=== PATIENT | female | born 1945 | race Caucasian/White ===

== ENCOUNTER 2018-04-07 12:35 | Inpatient (IN) | payer MEDICARE, BC ==
--- NOTE | 2018-03-28 19:47 | HP ---
HISTORY AND PHYSICAL: DATE OF ADMISSION/SURGERY: 04/07/18 DATE OF OFFICE VISIT: 03/28/18 SURGEON: Krista Juráez MD * (DICTATED BY ADRIEL CHAMBERS) PROCEDURE: Left total knee arthroplasty. CHIEF COMPLAINT: Left knee pain. HISTORY OF PRESENT ILLNESS: Ms. Paz is a 72-year-old female with end-stage osteoarthritis of the left knee. She has failed conservative treatment and elected to proceed with a left total knee arthroplasty. PAST MEDICAL HISTORY: High cholesterol and fibromyalgia. PAST SURGICAL HISTORY: Tonsillectomy, lumbar diskectomy, hysterectomy, sigmoidoscopy, cholecystectomy, and right toe surgery. CURRENT MEDICATIONS: 1. Celebrex 200 mg daily. 2. Glucosamine/chondroitin. 3. Vitamin D. 4. Vitamin C. 5. Wellbutrin 150 mg daily. 6. Cinnamon. 7. Rosuvastatin calcium 5 mg q.h.s. ALLERGIES: To AUGMENTIN. FAMILY HISTORY: Cancer and RA. SOCIAL HISTORY: She is a 72-year-old female, lives alone. She does not smoke or use drugs. Uses occasional alcohol. REVIEW OF SYSTEMS: A complete 14-point review of systems was reviewed with the patient. It was all negative or noncontributory. She denies history of DVT, PE , hepatitis, HIV, or anesthesia problems. PHYSICAL EXAMINATION GENERAL: She is well developed, well nourished, in no acute distress. VITAL SIGNS: She stands 5 feet 3 inches tall, weighs 244 pounds. Her blood pressure is 146/88 and heart rate is 64. HEENT: Normocephalic, atraumatic. NECK: Supple. No palpable lymph nodes. PULMONARY: The lungs are clear to auscultation bilaterally. CARDIO: Regular rate and rhythm. Strong S1, S2. ABDOMEN: Soft, nontender, nondistended. MUSCULOSKELETAL: Left lower extremity: The skin is intact. There are no open wounds or abrasions. There is a moderate joint effusion. She has some tenderness over the medial joint line. Range of motion is 10 to 125 degrees with patellofemoral crepitus. She has a 2+ dorsalis pedis pulse, intact sensation and her lower extremity muscle group strengths are intact at 5/5. ASSESSMENT AND PLAN: Ms. Paz is a 72-year-old female with end-stage osteoarthritis of the left knee. She has failed conservative treatment and elected to proceed with a left total knee arthroplasty, which is scheduled for 04/07/[address]árez[address] Dr. Juárez discussed the risks and the benefits of the surgery at today's visit and all of her questions were answered. She will follow up with Dr. Juárez 2 weeks after the surgery. ADRIEL CHAMBERS [id number]/[facility] #: [id number] [facility]
[~2018-04-07 12:35] MED LIST: Buffered Lidocaine 0.9% SYRIN* 5 ML/SYR SYRINGE INTRADERM ONE; Bupivacaine-MPF SPINAL* 7.5 MG/ML - 2ML AMP ONE; Dexamethasone IV* 4 MG/ML 1 ML (4 MG) IV SLOW PU ONE; Famotidine IV* 10 MG/ML 2 ML (20 mg) IV ONE; Lidocaine 2% PF * 5 ML VIAL ONE; Midazolam* 1 MG/ML 2 ML VIAL (2 MG) ONE; Propofol* 10 MG/ML 20 ML BTL ONE; Tranexamic Acid 1,000 MG in NS 0.9% 50 ML* (outpatient use) IV SCH; fentaNYL* 50 MCG/ML 2 ML VIAL (100 MCG VIAL) ONE
--- OUTSIDE RECORDS SUMMARY | 2018-04-07 12:40 | XMS REPORT | Continuity of Care Document ---
:1945 External Reference #:[id number] Author Name Patricia Parham Care Team Providers Name Role Phone Vikram Rueda MD Primary Care Physician Unavailable Payers Type Date Identification Numbers Payment Provider Subscriber Effective: 2010 Policy Number: [id number] Medicare Gladis Del Castillo PayID: [id number] [address] [place] [address] Effective: 2014 Policy Number: [id number] [facility] Gladis Del Castillo PayID: [id number] [address] [place] [address] Onset: 1991 Policy Number: [id number] Special Funds Gladis Del Castillo Group Number: [id number] [place] [address] Advance Directives Description No Information Available Problems Date Description Provider Status Onset: 03/14/2018 Inflammatory polyarthropathy Krista Juárez M.D. Active Onset: 03/14/2018 Localized, primary osteoarthritis Krista Juárez M.D. Active Onset: 04/08/2016 Low back pain Jaden Duckworth M.D. Active Family History Date Family Member(s) Problem(s) Comments General Cancer General Rheumatoid Arthritis Father Arthritis Father Rheumatoid Arthritis Father Gout Social History Type Date Description Comments Sex Unknown Lives With Alone Occupation Retired ETOH Use Occasionally consumes alcohol Tobacco Use Start: Unknown End: Patient is a former quit 3 years ago Unknown smoker and was a light smoker Recreational Drug Use Denies Drug Use Smoking Status Reviewed: 03/28/18 Patient is a former quit 3 years ago smoker and was a light smoker Exercise Type/Frequency Exercises sporadically Allergies, Adverse Reactions, Alerts Date Description Reaction Status Severity Comments 12/12/2015 Augmentin c.diff Active 12/18/2014 NKDA Inactive Medications Medication Date Status Form Strength Qnty SIG Indications Ordering Provider Celebrex 00/00/ Active Capsules 200mg 1 by Unknown 0000 mouth every day Glucosamine /00/ Active Capsules 1500Com 1 by Unknown Chondroitin 1500 0000 mouth Complex every day Vitamin D /00/ Active Capsules 3000mg 1 by Unknown 0000 mouth every day Vitamin C / Active Chewtabs 500mg 1 by Unknown 0000 mouth every day Bupropion HCL ER / Active Tablets ER 150mg 1 by Unknown (SR) 0000 12HR mouth qd Cinnamon / Active Capsules 1000mg 1 by Unknown 0000 mouth every day Rosuvastatin / Active Tablets 5mg 1 by Unknown Calcium 0000 mouth every night at bedtime Aspercreme 02/01/ Hx Cream 4% 6units apply Adam Dougherty/Lidocaine 2017 - twice Jesica, 03/27/ daily to M.D. 2018 the painful joints as needed Oxycodone HCL 12/31/ Hx Tablets 5mg 15tabs 1 tablet Adam 2018 - by mouth Jesica, 03/21/ every 8 M.D. 2018 hours as needed for pain Metronidazole 10/21/ Hx Tablets 500mg 42tabs 1 tab by A04.7 Jamye Borden 2015 - mouth Marck, 11/11/ three M.D. 2016 times a day Oxycodone HCL 01/18/ Hx Tablets 5mg 60tabs 1-2 tabs M20.21 Hiro 2014 - by mouth Zenon, 02/04/ every 4-6 M.D. 2014 hours as needed pain Methotrexate / Hx Tablets 2.5mg on hold 5 Unknown 0000 - po once a 09/24/ week. 2016 Fish Oil / Hx Capsules 2000mg Unknown 0000 - 2016 Cinnamon / Hx Capsules 1000mg 1 by Unknown 0000 - mouth 11/17/ every day 2016 Folic Acid / Hx Tablets 1mg 1 by Unknown 0000 - mouth 03/13/ every day 2016 Gabapentin 00/ Hx Capsules 100mg take 1 Unknown 0000 - tab tid 03/21/ prn 2018 Immunizations Description No Information Available Vital Signs Date Vital Result Comment 03/28/2018 8:22am Height 63.5 inches 5'3.50" Weight 244.00 lb Heart Rate 64 /min BP Systolic 146 mmHg BP Diastolic 88 mmHg BMI (Body Mass Index) 42.5 kg/m2 03/21/2018 2:38pm Height 63.25 inches 5'3.25" Weight 243.38 lb Heart Rate 79 /min BP Systolic Sitting 174 mmHg BP Diastolic Sitting 80 mmHg Respiratory Rate 16 /min Pain Level 3 BMI (Body Mass Index) 42.8 kg/m2 03/14/2018 2:16pm Height 63.25 inches 5'3.25" Weight 244.00 lb Heart Rate 80 /min BP Systolic 138 mmHg BP Diastolic 80 mmHg BMI (Body Mass Index) 42.9 kg/m2 02/21/2018 11:33am Height 64 inches 5'4" Weight 246.00 lb Heart Rate 68 /min BP Systolic Sitting 126 mmHg BP Diastolic Sitting 80 mmHg Respiratory Rate 14 /min Pain Level 6 BMI (Body Mass Index) 42.2 kg/m2 02/01/2018 3:06pm Height 64 inches 5'4" Weight 247.38 lb Heart Rate 76 /min BP Systolic Sitting 140 mmHg BP Diastolic Sitting 88 mmHg Pain Level 3 O2 % BldC Oximetry 96 % BMI (Body Mass Index) 42.5 kg/m2 12/31/2017 10:02am Height 64 inches 5'4" Weight 249.00 lb Heart Rate 74 /min BP Systolic Sitting 140 mmHg BP Diastolic Sitting 90 mmHg Respiratory Rate 14 /min Pain Level 7 BMI (Body Mass Index) 42.7 kg/m2 07/16/2017 9:49am Height 64 inches 5'4" Weight 258.00 lb Heart Rate 73 /min BP Systolic Sitting 144 mmHg BP Diastolic Sitting 78 mmHg Respiratory Rate 14 /min Pain Level 2 BMI (Body Mass Index) 44.3 kg/m2 12/15/2016 7:52am Height 64 inches 5'4" Weight 258.00 lb Heart Rate 84 /min BP Systolic Sitting 126 mmHg BP Diastolic Sitting 74 mmHg Respiratory Rate 14 /min Pain Level 0 BMI (Body Mass Index) 44.3 kg/m2 09/10/2016 8:43am Height 64 inches 5'4" Weight 260.00 lb Heart Rate 80 /min BP Systolic Sitting 140 mmHg BP Diastolic Sitting 100 mmHg Respiratory Rate 14 /min Pain Level 3 BMI (Body Mass Index) 44.6 kg/m2 04/08/2016 3:35pm Height 64 inches 5'4" Weight 251.00 lb Heart Rate 60 /min BP Systolic Sitting 138 mmHg BP Diastolic Sitting 94 mmHg Pain Level 0 BMI (Body Mass Index) 43.1 kg/m2 03/13/2016 9:26am Height 64 inches 5'4" Weight 254.38 lb Heart Rate 76 /min BP Systolic Sitting 120 mmHg BP Diastolic Sitting 70 mmHg Respiratory Rate 14 /min Body Temperature 97.5 F Pain Level 0 BMI (Body Mass Index) 43.7 kg/m2 12/12/2015 10:47am Height 64 inches 5'4" Weight 259.00 lb Heart Rate 72 /min BP Systolic Sitting 150 mmHg BP Diastolic Sitting 88 mmHg Respiratory Rate 14 /min Body Temperature 97.8 F Pain Level 2 BMI (Body Mass Index) 44.5 kg/m2 11/19/2015 8:59am Height 64 inches 5'4" Weight 259.00 lb Heart Rate 80 /min BP Systolic Sitting 134 mmHg BP Diastolic Sitting 88 mmHg Respiratory Rate 14 /min Body Temperature 97.8 F BMI (Body Mass Index) 44.5 kg/m2 10/29/2015 9:07am Height 64 inches 5'4" Weight 259.00 lb Heart Rate 60 /min BP Systolic Sitting 138 mmHg BP Diastolic Sitting 88 mmHg Respiratory Rate 14 /min Body Temperature 97.5 F BMI (Body Mass Index) 44.5 kg/m2 10/22/2015 8:32am Weight 257.00 lb Heart Rate 80 /min BP Systolic Sitting 176 mmHg BP Diastolic Sitting 82 mmHg O2 % BldC Oximetry 97 % 03/19/2015 4:07pm Height 64 inches 5'4" Weight 258.00 lb Pain Level 0 BMI (Body Mass Index) 44.3 kg/m2 02/28/2015 3:15pm Height 64 inches 5'4" Weight 258.00 lb Pain Level 0 BMI (Body Mass Index) 44.3 kg/m2 02/07/2015 2:15pm Height 64 inches 5'4" Weight 258.00 lb Body Temperature 97.5 F Pain Level 0 BMI (Body Mass Index) 44.3 kg/m2 01/18/2015 8:31am Height 64 inches 5'4" Weight 258.00 lb Heart Rate 76 /min BP Systolic 132 mmHg BP Diastolic 88 mmHg Body Temperature 97.1 F Pain Level 0 BMI (Body Mass Index) 44.3 kg/m2 12/18/2014 2:05pm Height 64 inches 5'4" Weight 258.00 lb Pain Level 3 BMI (Body Mass Index) 44.3 kg/m2 Results Test Date Facility Test Result H/L Range Note Urine Culture And 03/28/2018 [facility] Urine Culture SEE RESULT [address] [place] [address] [phone] Comp Metabolic 03/28/2018 [facility] Sodium 140 mmol/L N 135- [address] [place] [address] [phone] Potassium 4.5 mmol/L N 3.5-5.0 Chloride 104 mmol/L N 101-111 Co2 Carbon Dioxide 30 mmol/L N 22-32 Anion Gap 6 mmol/L N 2-11 Glucose 96 mg/dL N 70-100 Blood Urea Nitrogen 12 mg/dL N 6-24 Creatinine 0.82 mg/dL N 0.51-0.95 BUN/Creatinine Ratio 14.6 N 8-20 Calcium 9.9 mg/dL N 8.6-10.3 Total Protein 7.0 g/dL N 6.4-8.9 Albumin 4.5 g/dL N 3.2-5.2 Globulin 2.5 g/dL N 2-4 Albumin/Globulin Ratio 1.8 N 1-3 Total Bilirubin 1.20 mg/dL High 0.2-1.0 Alkaline Phosphatase 46 U/L N 34-104 Alt 31 U/L N 7-52 Ast 29 U/L N 13-39 Egfr Non- 68.5 >60 Egfr 82.9 >60 2 Laboratory test 03/28/2018 [facility] Partial 39.0 High 26.0- 36.[address] [place] [address] PTT [phone] CBC Auto Diff 03/28/2018 [facility] White Blood 7.7 10^3/uL N 3.5-10.[address] [place] [address] [phone] Red Blood Count 4.74 10^6/uL N 4.00-5.40 Hemoglobin 15.0 g/dL N 12.0-16.0 Hematocrit 44 % N 35-47 Mean Corpuscular Volume 93 fL N 80-97 Mean Corpuscular Hemoglobin 32 pg High 27-31 Mean Corpuscular HGB Conc 34 g/dL N 31-36 Red Cell Distribution Width 13 % N 10.5-15 Platelet Count 237 10^3/uL N 150-450 Mean Platelet Volume 8.5 fL N 7.4-10.4 Abs Neutrophils 4.9 10^3/uL N 1.5-7.7 Abs Lymphocytes 2.1 10^3/uL N 1.0-4.8 Abs Monocytes 0.5 10^3/uL N 0-0.8 Abs Eosinophils 0.2 10^3/uL N 0-0.6 Abs Basophils 0.1 10^3/uL N 0-0.2 Abs Nucleated RBC 0 10^3/uL Granulocyte % 63.4 % N 38-83 Lymphocyte % 26.8 % N 25-47 Monocyte % 6.9 % N 0-7 Eosinophil % 2.0 % N 0-6 Basophil % 0.9 % N 0-2 Nucleated Red Blood Cells % 0.1 Type & Screen 03/28/2018 [facility] Patient Blood Type O Positive [address] [place] [phone] Antibody Screen NEGATIVE Inr/Protime 03/28/2018 [facility] Inr 0.90 N 0.77-1.[address] [place] [address] [phone] Urinalysis Profile 03/28/2018 [facility] Urine Color Yellow [address] [place] [address] [phone] Urine Appearance Cloudy Urine Specific Parsons 1.010 N 1.010-1.030 Urine pH 5.0 N 5-9 Urine Urobilinogen Negative Negative Urine Ketones Negative Negative Urine Protein Negative Negative Urine Leukocytes 3+ Abnormal Negative Urine Blood Negative Negative * * Abnormal Negative 3 Urine Nitrite Negative Negative Urine Bilirubin Negative Negative Urine Glucose Negative Negative Urine White Blood Cell 2+(11-20/hpf) Abnormal Absent Urine Red Blood Cell Absent Absent Urine Bacteria Absent Absent Urine Squamous Epithelial Cell Present Abnormal Absent Connective Tissue 02/21/2018 [facility] Anti-Nuclear Antibody 0.4 U [address] [place] [phone] Cyclic Citrullinated Peptide <15.6 U 5 Interpretation See Comment 6 Laboratory test 02/21/2018 [facility] Rheumatoid Factor < 10 IU/ mL N <15 [address] [place] [address] [phone] Erythrocyte Sed Rate 8 mm/Hr N 0-40 8 C Reactive Protein < 1.00 mg/L N <8.01 9 Laboratory test 04/16/2017 [facility] C Reactive < 1.00 N < 5.00 [address] Protein mg/[place] [address] [phone] Erythrocyte Sed Rate 6 mm/Hr N 0-40 11 Comp Metabolic Panel 04/16/2017 [facility] Sodium 138 mmol/L N 133-[address] [place] [address] [phone] Potassium 4.2 mmol/L N 3.5-5.0 Chloride 104 mmol/L N 101-111 Co2 Carbon Dioxide 28 mmol/L N 22-32 Anion Gap 6 mmol/L N 2-11 Glucose 103 mg/dL High 70-100 Blood Urea Nitrogen 13 mg/dL N 6-24 Creatinine 0.84 mg/dL N 0.51-0.95 BUN/Creatinine Ratio 15.5 N 8-20 Calcium 9.5 mg/dL N 8.6-10.3 Total Protein 6.5 g/dL N 6.4-8.9 Albumin 4.3 g/dL N 3.2-5.2 Globulin 2.2 g/dL N 2-4 Albumin/Globulin Ratio 2.0 N 1-3 Total Bilirubin 1.20 mg/dL High 0.2-1.0 Alkaline Phosphatase 45 U/L N 34-104 Alt 40 U/L N 7-52 Ast 34 U/L N 13-39 Egfr Non- 66.8 >60 Egfr 86.0 >60 12 CBC Auto Diff 04/16/2017 [facility] White Blood 5.9 10^3/uL N 3.5-10.[address] [place] [address] [phone] Red Blood Count 4.52 10^6/uL N 4.0-5.4 Hemoglobin 14.3 g/dL N 12.0-16.0 Hematocrit 42 % N 35-47 Mean Corpuscular Volume 92 fL N 80-97 Mean Corpuscular Hemoglobin 32 pg High 27-31 Mean Corpuscular HGB Conc 35 g/dL N 31-36 Red Cell Distribution Width 13 % N 10.5-15 Platelet Count 214 10^3/uL N 150-450 Mean Platelet Volume 9 um3 N 7.4-10.4 Abs Neutrophils 3.5 10^3/uL N 1.5-7.7 Abs Lymphocytes 1.7 10^3/uL N 1.0-4.8 Abs Monocytes 0.5 10^3/uL N 0-0.8 Abs Eosinophils 0.2 10^3/uL N 0-0.6 Abs Basophils 0 10^3/uL N 0-0.2 Abs Nucleated RBC 0.01 10^3/uL Granulocyte % 59.2 % N 38-83 Lymphocyte % 29.4 % N 25-47 Monocyte % 8.0 % N 1-9 Eosinophil % 2.7 % N 0-6 Basophil % 0.7 % N 0-2 Nucleated Red Blood Cells % 0.1 Lipid Profile 04/16/2017 [facility] Triglycerides 97 mg/dL 13 (Trig/Chol/HDL) [address] [place] [address] [phone] Cholesterol 149 mg/dL 14 HDL Cholesterol 61.0 mg/dL 15 LDL Cholesterol 69 mg/dL 16 Laboratory test 04/16/2017 [facility] Erythrocyte Sed 6 mm/Hr N 0-40 [address] [place] [address] [phone] C Reactive Protein < 1.00 mg/L N < 5.00 18 CBC Auto Diff 04/16/2017 [facility] White Blood 5.9 10^3/uL N 3.5-10.[address] [place] [address] [phone] Red Blood Count 4.52 10^6/uL N 4.0-5.4 Hemoglobin 14.3 g/dL N 12.0-16.0 Hematocrit 42 % N 35-47 Mean Corpuscular Volume 92 fL N 80-97 Mean Corpuscular Hemoglobin 32 pg High 27-31 Mean Corpuscular HGB Conc 35 g/dL N 31-36 Red Cell Distribution Width 13 % N 10.5-15 Platelet Count 214 10^3/uL N 150-450 Mean Platelet Volume 9 um3 N 7.4-10.4 Abs Neutrophils 3.5 10^3/uL N 1.5-7.7 Abs Lymphocytes 1.7 10^3/uL N 1.0-4.8 Abs Monocytes 0.5 10^3/uL N 0-0.8 Abs Eosinophils 0.2 10^3/uL N 0-0.6 Abs Basophils 0 10^3/uL N 0-0.2 Abs Nucleated RBC 0.01 10^3/uL Granulocyte % 59.2 % N 38-83 Lymphocyte % 29.4 % N 25-47 Monocyte % 8.0 % N 1-9 Eosinophil % 2.7 % N 0-6 Basophil % 0.7 % N 0-2 Nucleated Red Blood Cells % 0.1 Comp Metabolic Panel 04/16/2017 [facility] Sodium 138 mmol/L N 133-[address] [place] [address] [phone] Potassium 4.2 mmol/L N 3.5-5.0 Chloride 104 mmol/L N 101-111 Co2 Carbon Dioxide 28 mmol/L N 22-32 Anion Gap 6 mmol/L N 2-11 Glucose 103 mg/dL High 70-100 Blood Urea Nitrogen 13 mg/dL N 6-24 Creatinine 0.84 mg/dL N 0.51-0.95 BUN/Creatinine Ratio 15.5 N 8-20 Calcium 9.5 mg/dL N 8.6-10.3 Total Protein 6.5 g/dL N 6.4-8.9 Albumin 4.3 g/dL N 3.2-5.2 Globulin 2.2 g/dL N 2-4 Albumin/Globulin Ratio 2.0 N 1-3 Total Bilirubin 1.20 mg/dL High 0.2-1.0 Alkaline Phosphatase 45 U/L N 34-104 Alt 40 U/L N 7-52 Ast 34 U/L N 13-39 Egfr Non- 66.8 >60 Egfr 86.0 >60 19 Lipid Profile 04/16/2017 [facility] Triglycerides 97 mg/dL 20 (Trig/Chol/HDL) [address] [place] [address] [phone] Cholesterol 149 mg/dL 21 HDL Cholesterol 61.0 mg/dL 22 LDL Cholesterol 69 mg/dL 23 Laboratory test 09/10/2016 [facility] Erythrocyte Sed 6 mm/Hr N 0-[address] [place] [address] [phone] C Reactive Protein < 1.00 mg/L N < 5.00 24 CBC Auto Diff 09/10/2016 [facility] White Blood 6.1 10^3/uL N 3.5-10.[address] [place] [address] [phone] Red Blood Count 4.66 10^6/uL N 4.0-5.4 Hemoglobin 14.4 g/dL N 12.0-16.0 Hematocrit 43 % N 35-47 Mean Corpuscular Volume 92 fL N 80-97 Mean Corpuscular Hemoglobin 31 pg N 27-31 Mean Corpuscular HGB Conc 34 g/dL N 31-36 Red Cell Distribution Width 13 % N 10.5-15 Platelet Count 192 10^3/uL N 150-450 Mean Platelet Volume 9 um3 N 7.4-10.4 Abs Neutrophils 3.8 10^3/uL N 1.5-7.7 Abs Lymphocytes 1.7 10^3/uL N 1.0-4.8 Abs Monocytes 0.5 10^3/uL N 0-0.8 Abs Eosinophils 0.1 10^3/uL N 0-0.6 Abs Basophils 0 10^3/uL N 0-0.2 Abs Nucleated RBC 0 10^3/uL N Granulocyte % 61.2 % N 38-83 Lymphocyte % 27.9 % N 25-47 Monocyte % 7.9 % N 1-9 Eosinophil % 2.4 % N 0-6 Basophil % 0.6 % N 0-2 Nucleated Red Blood Cells % 0.1 N Comp Metabolic Panel 09/10/2016 [facility] Sodium 141 mmol/L N 133-[address] [place] [address] [phone] Potassium 4.1 mmol/L N 3.5-5.0 Chloride 105 mmol/L N 101-111 Co2 Carbon Dioxide 30 mmol/L N 22-32 Anion Gap 6 mmol/L N 2-11 Glucose 99 mg/dL N 70-100 Blood Urea Nitrogen 12 mg/dL N 6-24 Creatinine 0.79 mg/dL N 0.51-0.95 BUN/Creatinine Ratio 15.2 N 8-20 Calcium 9.4 mg/dL N 8.6-10.3 Total Protein 6.6 g/dL N 6.4-8.9 Albumin 4.2 g/dL N 3.2-5.2 Globulin 2.4 g/dL N 2-4 Albumin/Globulin Ratio 1.8 N 1-3 Total Bilirubin 1.30 mg/dL High 0.2-1.0 Alkaline Phosphatase 41 U/L N 34-104 Alt 34 U/L N 7-52 Ast 28 U/L N 13-39 Egfr Non- 71.9 N >60 Egfr 92.5 N >60 25 Laboratory 09/10/2016 [facility] TSH (Thyroid Stim 1.81 N 0.34 -5.60 test finding [address] Horm) mcIU/[place] [address] [phone] Lipid Profile 09/10/2016 [facility] Triglycerides 108 mg/dL N 26 (Trig/Chol/HDL [address] ) [place] [address] [phone] Cholesterol 153 mg/dL N 27 HDL Cholesterol 60.9 mg/dL N 28 LDL Cholesterol 71 mg/dL N 29 Laboratory test 12/13/2015 [facility] TSH (Thyroid 1.75 mcIU/mL N 0.34-5.60 [address] Stim Horm) [place] [address] [phone] Vitamin D 1,25 12/13/2015 [facility] Vitamin D 41.9 ng/mL N 30 -50 31 And Vitamin D,[address] Total 25(Oh) [place] [address] [phone] Vitamin D, 1,25 Dihydroxy 55 pg/mL N 18-78 32 Laboratory test 12/13/2015 [facility] Cyclic Citrullinated TNP N () [address] [place] [address] [phone] Rheumatoid Factor <15 IU/mL N <15 34 Uric Acid 6.9 mg/dL High 2.3-6.6 35 Lyme Disease Serology Negative N Negative 36 Connective Tissue 12/13/2015 [facility] Anti-Nuclear 0.5 U N [address] [place] [address] [phone] Cyclic Citrullinated Peptide <15.6 U N 38 Interpretation See Comment N 39 Laboratory test 12/13/2015 [facility] Creatine 106 U/L N 10- 223 [address] Kinase(CK) [place] [address] [phone] C Reactive Protein < 1.00 mg/L N < 5.00 41 Liver Function 10/30/2015 [facility] Total Protein 6.5 g/dL N 6.4-8.[address] [place] [address] [phone] Albumin 4.2 g/dL N 3.2-5.2 Globulin 2.3 g/dL N 2-4 Albumin/Globulin Ratio 1.8 N 1-3 Total Bilirubin 0.70 mg/dL N 0.2-1.0 Direct Bilirubin 0.10 mg/dL N 0.03-0.18 Indirect Bilirubin 0.6 mg/dL N 0.3-1.0 Alkaline Phosphatase 48 U/L N 34-104 Alt 52 U/L N 7-52 Ast 35 U/L N 13-39 Laboratory 10/30/2015 [facility] Hepatitis C Nonreactive N Nonreactive test finding [address] [place] [address] [phone] Laboratory 10/23/2015 [facility] C Difficile SEE RESULT 42 test finding [address] [place] [address] [phone] Laboratory 01/28/2015 [facility] Surgical SEE RESULT 43 test finding [address] [place] [address] [phone] 1 SEE RESULT BELOW Name: GLADIS DEL CASTILLO : [address]: Krista Juárez MD Acct: [id number] Unit: [id number] AGE: 72 Location: [facility] Re03/28/18 SEX: F Status: REG REF SPEC: [id number] BIANCA: 03/28/[address]: Krista Juárez MD REQ: [id number] RECD: 03/28/18 STATUS: COMP _ SOURCE: URINE SPDESC: ORDERED: Urine Culture QUERIES: Urine Source: Clean Catch Procedure Result Reported Site Urine Culture Final 03/29/18- 1214 ML No Growth (<1,000 CFU/mL) * ML - Main Lab . END OF REPORT DEPARTMENT OF PATHOLOGY, [address] [place] [address] Carlos Dodge M.D. Director [facility] # [id number] 2 Because ethnic data is not always readily available, this report includes an eGFR for both -Americans and non- Americans. The National Kidney Disease Education Program (NKDEP) does not endorse the use of the MDRD equation for patients that are not between the ages of 18 and 70, are , have extremes of body size, muscle mass, or nutritional status, or are non- or non-. According to the National Kidney Foundation, irrespective of diagnosis, the stage of the disease is based on the level of kidney function: Stage Description GFR(mL/min/1.73 m(2)) 1 Kidney damage with normal or decreased GFR 90 2 Kidney damage with mild decrease in GFR 60-89 3 Moderate decrease in GFR 30-59 4 Severe decrease in GFR 15-29 5 Kidney failure <15 (or dialysis) 3 *Ascorbic acid is present which may interfere with detection of blood. 4 REFERENCE VALUE <=1.0 (Negative) 5 REFERENCE VALUE <20.0 (Negative) 6 Tests for antibodies to dsDNA and NIRAV antigens are not performed automatically unless the KASSY result is > or= 3.0 U. Studies performed at [facility] indicate that positive KASSY results <3.0 U are rarely accompanied by positive second order tests. Test Performed by: [address] [address] 7 Please check today 8 Please check today 9 Please check today 10 Acute inflammation: >10.00 11 Please check fasting labs in March 21 Because ethnic data is not always readily available, this report includes an eGFR for both -Americans and non- Americans. The National Kidney Disease Education Program (NKDEP) does not endorse the use of the MDRD equation for patients that are not between the ages of 18 and 70, are , have extremes of body size, muscle mass, or nutritional status, or are non- or non-. According to the National Kidney Foundation, irrespective of diagnosis, the stage of the disease is based on the level of kidney function: Stage Description GFR(mL/min/1.73 m(2)) 1 Kidney damage with normal or decreased GFR 90 2 Kidney damage with mild decrease in GFR 60-89 3 Moderate decrease in GFR 30-59 4 Severe decrease in GFR 15-29 5 Kidney failure <15 (or dialysis) 13 Desirable: <150 Borderline High: 150-199 High: 200-499 Very High: >500 14 Desirable: <200 Borderline High: 200-239 High: >239 15 Low: <40 Desirable: 40-60 High: >60 16 Desirable: <100 Near Optimal: 100-129 Borderline High: 130-159 High: 160-189 Very High: >189 17 Please check fasting labs in March 27 Acute inflammation: >10.00 19 Because ethnic data is not always readily available, this report includes an eGFR for both -Americans and non- Americans. The National Kidney Disease Education Program (NKDEP) does not endorse the use of the MDRD equation for patients that are not between the ages of 18 and 70, are , have extremes of body size, muscle mass, or nutritional status, or are non- or non-. According to the National Kidney Foundation, irrespective of diagnosis, the stage of the disease is based on the level of kidney function: Stage Description GFR(mL/min/1.73 m(2)) 1 Kidney damage with normal or decreased GFR 90 2 Kidney damage with mild decrease in GFR 60-89 3 Moderate decrease in GFR 30-59 4 Severe decrease in GFR 15-29 5 Kidney failure <15 (or dialysis) 20 Desirable: <150 Borderline High: 150-199 High: 200-499 Very High: >500 21 Desirable: <200 Borderline High: 200-239 High: >239 22 Low: <40 Desirable: 40-60 High: >60 23 Desirable: <100 Near Optimal: 100-129 Borderline High: 130-159 High: 160-189 Very High: >189 24 Acute inflammation: >10.00 25 Because ethnic data is not always readily available, this report includes an eGFR for both -Americans and non- Americans. The National Kidney Disease Education Program (NKDEP) does not endorse the use of the MDRD equation for patients that are not between the ages of 18 and 70, are , have extremes of body size, muscle mass, or nutritional status, or are non- or non-. According to the National Kidney Foundation, irrespective of diagnosis, the stage of the disease is based on the level of kidney function: Stage Description GFR(mL/min/1.73 m(2)) 1 Kidney damage with normal or decreased GFR 90 2 Kidney damage with mild decrease in GFR 60-89 3 Moderate decrease in GFR 30-59 4 Severe decrease in GFR 15-29 5 Kidney failure <15 (or dialysis) 26 Desirable <150 Borderline high 150-199 High 200-499 Very High >500 27 Desirable <200 Borderline high 200-239 High >239 28 Low <40 Desirable: 40-60 High: >60 29 Desirable: <100 mg/dL Near Optimal: 100-129 mg/dL Borderline High: 130-159 mg/dL High: 160-189 mg/dL Very High: >189 mg/dL 30 Please schedule labs this week 31 Please schedule labs this week 32 Test Performed by: [place] [address] Slate Roofer: Octavio Jacome II, M.D., Ph.D. 33 Cancelled due to duplicate test on this order Test Performed by: [place] [address] Slate Roofer: Octavio Jacome II, M.D., Ph.D. 34 Test Performed by: [place] [address] Slate Roofer: Octavio Jacome II, M.D., Ph.D. 35 Please schedule labs this week 36 Serologic response to B. burgdorferi infection is not detected, but cannot rule out early infection during which low or undetectable antibody levels to B. burgdorferi may be present. If clinically indicated, a new serum specimen should be submitted in 7-14 days. Test Performed by: [place] [address] Slate Roofer: Octavio Jacome II, M.D., Ph.D. 37 REFERENCE VALUE <=1.0 (Negative) 38 REFERENCE VALUE <20.0 (Negative) 39 Tests for antibodies to dsDNA and NIRAV antigens are not performed automatically unless the KASSY result is > or= 3.0 U. Studies performed at [facility] indicate that positive KASSY results <3.0 U are rarely accompanied by positive second order tests. Test Performed by: [facility] - [address] [address] Slate Roofer: Octavio Jacome II, M.D., Ph.D. 40 Please schedule labs this week 41 Acute inflammation: >10.00 42 SEE RESULT BELOW Name: GLADIS DEL CASTILLO : [address]: Jamey Engel MD Acct: [id number] Unit: [id number] AGE: 69 Location: [facility] Re10/23/15 SEX: F Status: REG REF SPEC: [id number] BIANCA: 10/23/[address]: Jamey Engel MD REQ: [id number] RECD: 10/23/15 STATUS: COMP _ SOURCE: STOOL SPDESC: ORDERED: C. diff PCR Procedure Result Reported Site Stool Specimen Description Final 10/23/15922 ML Stool Color Brown Stool Form Nonformed Stool Consistency Soft Mucoid C. difficile PCR Final 10/23/15918 ML Organism 1 027 Presumptive NEGATIVE Organism 2 Toxigenic C.diff POSITIVE * ML - MAIN LAB ([facility]) . END OF REPORT * ML=Testing performed at Main Lab DEPARTMENT OF PATHOLOGY, [address] [place] [address] Carlos Dodge M.D. Director [facility] # [id number] 43 SEE RESULT BELOW Name: GLADIS DEL CASTILLO : [address]: Hiro Yarbrough MD Acct: [id number] Unit: [id number] AGE: 69 Location: [place] Re01/28/15 SEX: F Status: REG SD SPEC: [id number] BIANCA: 01/28/15- [facility] DR: Hiro Yarbrough MD REQ: [id number] RECD: 01/28/151404 STATUS: SOUT _ ORDERED: Decal, LEVEL III FINAL DIAGNOSIS Bone, right foot, excision: -- Benign bone, cartilage, and fibroconnective tissue with reactive changes. PRE-OPERATIVE DIAGNOSIS Osteoarthrosis right ankle and foot. GROSS DESCRIPTION The specimen is received in formalin labeled, Right Foot Bone Spurs, and consists of a 2.8 x 2.3 x 1.0 cm aggregate of horton-pink irregular bone fragments. Features Reporter sections, one cassette following decalcification. MICROSCOPIC DESCRIPTION . Signed (signature on file) Eliane Copeland MD 1202 END OF REPORT * ML=Testing performed at Main Lab DEPARTMENT OF PATHOLOGY, [address] [place] [address] Carlos Dodge M.D. 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 knee M06.4 Inflammatory polyarthropathy M25.562 Pain in left knee M25.462 Effusion, left knee M25.561 Pain in right knee M25.461 Effusion, right knee M17.11 Unilateral primary osteoarthritis, right knee Office Visit 02/21/2018 Rheumatology Adam Bermudez Unilateral primary 11:20a Services Of Jeffy Mooney M.D. osteoarthritis, left knee M54.5 Low back pain Z79.1 group home (current) use of non-steroidal non-inflam (Nsaid) R20.8 Other disturbances of skin sensation M06.4 Inflammatory polyarthropathy Office Visit 02/01/2018 Rheumatology Adam Bermudez Unilateral primary 2:40p Services Of Jeffy Mooney M.D. 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 pain Z79.1 group home (current) use of non-steroidal non-inflam (Nsaid) R20.8 Other disturbances of skin sensation Office Visit 07/16/2017 10:00a Rheumatology Services Lien Williamson4.5 Low back Of Acid Dumper M.D. 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 non-inflam (Nsaid) E78.4 Other hyperlipidemia M19.041 Primary osteoarthritis, right hand M19.042 Primary osteoarthritis, left hand Office Visit 04/08/2016 3:45p Neurosurgery Jaden Duckworth M54.5 Low back pain Services Of Jeffy Barnhart Office Visit 03/13/2016 9:40a Rheumatology Adam Mooney, R74.0 Nonspec elev of Services Of Jeffy Barnhart levels of transamns & lactic acid dehydrgnse 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 arthritis without rheumatoid factor, [facility] site M79.641 Pain in right hand M79.642 Pain in left hand R94.5 Abnormal results of liver function studies R20.8 Other disturbances of skin sensation Office Visit 11/19/2015 [facility] Jamey Borden A04.7 Enterocolitis due 9:10a For Patel Engel M.D. to Clostridium Diseases difficile M06.9 Rheumatoid arthritis, unspecified Office Visit 10/29/2015 [facility] Kaela Borden A04.7 Enterocolitis due 9:10a For Patel Engel M.D. to Clostridium Diseases difficile R74.0 Nonspec elev of levels of transamns & lactic acid dehydrgnse E66.9 Obesity, unspecified Office Visit 10/22/2015 [facility] Jamey Borden A04.7 Enterocolitis due 8:30a For Patel Engel M.D. to Clostridium Diseases difficile R10.84 Generalized abdominal pain Office Visit 12/18/2014 Orthopedic Hiro 715.17 Osteoarthrosis 1:40p Services Of Bronwyn Yarbrough Localized Prim Ankle C.M.A. & Foot Plan of Treatment Future Appointment(s):04/22/2018 9:15 am - Krista Juárez M.D. at [facility]04/07/2018 3:30 pm - СВЕТЛАНА Kenney at [facility]04/07/2018 3:30 pm - ADRIEL Rodrigues at [facility]04/07/2018 3:30 pm - Krista Juárez M.D. at [facility]05/05/2018 11:20 am - Adam Mooney M.D. at [facility]ology [facility]03/28/2018 - Krista Juárez M.D.M17.12 Unilateral primary osteoarthritis, left kneeFollow up:Follow up: 2 weeks after kbrkrxjH62.562 Pain in left kneeNew Xrays:Knee 3 Views LT, Ordered: 03/28/18M25.462 Effusion, left knee
--- OUTSIDE RECORDS SUMMARY | 2018-04-07 12:40 | XMS REPORT | Continuity of Care Document ---
:1945 External Reference #:[id number] Author Name Jarad Marks Care Team Providers Name Role Phone Vikram Rueda MD Primary Care Physician Unavailable Payers Type Date Identification Numbers Payment Provider Subscriber Effective: 2010 Policy Number: [id number] Medicare Gladis Del Castillo PayID: [id number] [address] [place] [address] Effective: 2014 Policy Number: [id number] [facility] Gladis Del Castillo PayID: [id number] [address] [place] [address] Onset: 1991 Policy Number: [id number] Special Funds Gladis Del Castillo Group Number: [id number] [place] [address] Advance Directives Description No Information Available Problems [...] by Unknown 0000 mouth every day Glucosamine 00/ Active Capsules 1500Com 1 by Unknown Chondroitin [...] Tablets 500mg 42tabs 1 tab by A04.7 Jamey Borden 2015 - mouth Marck, 11/11/ three [...] Date Facility Test Result H/L Range Note Connective Tissue 02/21/2018 [facility] Anti-Nuclear 0.4 U 1 Panel 101 DATES [facility] [place] [place] [address] [phone] Cyclic Citrullinated Peptide <15.6 U 2 Interpretation See Comment 3 Laboratory test 02/21/2018 [facility] Rheumatoid Factor < 10 IU/ mL N <15 [address] [place] [address] [phone] Erythrocyte Sed Rate 8 mm/Hr N 0-40 5 C Reactive Protein < 1.00 mg/L N <8.01 6 Laboratory test 04/16/2017 [facility] C Reactive < 1.00 N < 5.00 7 finding 101 [facility] Protein mg/[place] [address] [phone] Erythrocyte Sed Rate 6 mm/Hr N 0-40 8 Comp Metabolic Panel 04/16/2017 [facility] Sodium 138 mmol/L N 133-[address] [place] [address] [phone] Potassium 4.2 mmol/L N 3.5-5.0 Chloride 104 [...] Egfr Non- 66.8 >60 Egfr 86.0 >60 9 CBC Auto Diff 04/16/2017 [facility] White Blood 5.9 10^3/uL N 3.5-10.[address] [place] [address] [phone] Red Blood Count 4.52 10^6/uL N 4.0-5.4 [...] Blood Cells % 0.1 Lipid Profile 04/16/2017 [facility] Triglycerides 97 mg/dL 10 (Trig/Chol/HDL) [address] [place] [address] [phone] Cholesterol 149 mg/dL 11 HDL Cholesterol 61.0 mg/dL 12 LDL Cholesterol 69 mg/dL 13 Laboratory test 04/16/2017 [facility] Erythrocyte Sed 6 mm/Hr N 0-40 [address] [place] [address] [phone] C Reactive Protein < 1.00 mg/L N < 5.00 15 CBC Auto Diff 04/16/2017 [facility] White Blood 5.9 10^3/uL N 3.5-10.[address] [place] [address] [phone] Red Blood Count 4.52 10^6/uL N 4.0-5.4 [...] Cells % 0.1 Comp Metabolic Panel 04/16/2017 [facility] Sodium 138 mmol/L N 133-[address] [place] [address] [phone] Potassium 4.2 mmol/L N 3.5-5.0 Chloride 104 [...] Egfr Non- 66.8 >60 Egfr 86.0 >60 16 Lipid Profile 04/16/2017 [facility] Triglycerides 97 mg/dL 17 (Trig/Chol/HDL) [address] [place] [address] [phone] Cholesterol 149 mg/dL 18 HDL Cholesterol 61.0 mg/dL 19 LDL Cholesterol 69 mg/dL 20 Laboratory test 09/10/2016 [facility] Erythrocyte Sed 6 mm/Hr N 0-[address] [place] [address] [phone] C Reactive Protein < 1.00 mg/L N < 5.00 21 CBC Auto Diff 09/10/2016 [facility] White Blood 6.1 10^3/uL N 3.5-10.[address] [place] [address] [phone] Red Blood Count 4.66 10^6/uL N 4.0-5.4 [...] % 0.1 N Comp Metabolic Panel 09/10/2016 [facility] Sodium 141 mmol/L N 133-[address] [place] [address] [phone] Potassium 4.1 mmol/L N 3.5-5.0 Chloride 105 [...] 71.9 N >60 Egfr 92.5 N >60 22 Laboratory 09/10/2016 [facility] TSH (Thyroid Stim 1.81 N 0.34 -5.60 test finding [address] Horm) mcIU/[place] [address] [phone] Lipid Profile 09/10/2016 [facility] Triglycerides 108 mg/dL N 23 (Trig/Chol/HDL [address] ) [place] [address] [phone] Cholesterol 153 mg/dL N 24 HDL Cholesterol 60.9 mg/dL N 25 LDL Cholesterol 71 mg/dL N 26 Laboratory test 12/13/2015 [facility] TSH (Thyroid 1.75 mcIU/mL N 0.34-5.60 [address] Stim Horm) [place] [address] [phone] Vitamin D 1,25 12/13/2015 [facility] Vitamin D 41.9 ng/mL N 30 -50 28 And Vitamin D,[address] Total 25(Oh) [place] [address] [phone] Vitamin D, 1,25 Dihydroxy 55 pg/mL N 18-78 29 Laboratory test 12/13/2015 [facility] Cyclic Citrullinated TNP N () [address] [place] [place] [address] [phone] Rheumatoid Factor <15 IU/mL N <15 31 Uric Acid 6.9 mg/dL High 2.3-6.6 32 Lyme Disease Serology Negative N Negative 33 Connective Tissue 12/13/2015 [facility] Anti-Nuclear 0.5 U N [address] [place] [address] [phone] Cyclic Citrullinated Peptide <15.6 U N 35 Interpretation See Comment N 36 Laboratory test 12/13/2015 [facility] Creatine 106 U/L N 10- 223 [address] Kinase(CK) [place] [address] [phone] C Reactive Protein < 1.00 mg/L N < 5.00 38 Liver Function 10/30/2015 [facility] Total Protein 6.5 g/dL N 6.4-8.[address] [place] [address] [phone] Albumin 4.2 g/dL N 3.2-5.2 Globulin 2.3 g/dL N 2-4 Albumin/Globulin Ratio 1.8 N 1-3 Total Bilirubin 0.70 mg/dL N 0.2-1.0 Direct Bilirubin 0.10 mg/dL N 0.03-0.18 Indirect Bilirubin 0.6 mg/dL N 0.3-1.0 Alkaline Phosphatase 48 U/L N 34-104 Alt 52 U/L N 7-52 Ast 35 U/L N 13-39 Laboratory 10/30/2015 [facility] Hepatitis C Nonreactive N Nonreactive test finding [address] [place] [address] [phone] Laboratory 10/23/2015 [facility] C Difficile SEE RESULT 39 test finding [address] [place] [address] [phone] Laboratory 01/28/2015 [facility] Surgical SEE RESULT 40 test finding [address] [place] [address] [phone] 1 REFERENCE VALUE <=1.0 (Negative) 2 REFERENCE VALUE <20.0 (Negative) 3 Tests for antibodies to dsDNA and NIRAV antigens are not performed automatically unless the KASSY result is > or= 3.0 U. Studies performed at [facility] indicate that positive KASSY results <3.0 U are rarely accompanied by positive second order tests. Test Performed by: [facility] - [address] [address] 4 Please check today 5 Please check today 6 Please check today 7 Acute inflammation: >10.00 8 Please check fasting labs in March 18 Because ethnic data is not always readily [...] 15-29 5 Kidney failure <15 (or dialysis) 10 Desirable: <150 Borderline High: 150-199 High: 200-499 Very High: >500 11 Desirable: <200 Borderline High: 200-239 High: >239 12 Low: <40 Desirable: 40-60 High: >60 13 Desirable: <100 Near Optimal: 100-129 Borderline High: 130-159 High: 160-189 Very High: >189 14 Please check fasting labs in March 24 Acute inflammation: >10.00 16 Because ethnic data is not always readily [...] 15-29 5 Kidney failure <15 (or dialysis) 17 Desirable: <150 Borderline High: 150-199 High: 200-499 Very High: >500 18 Desirable: <200 Borderline High: 200-239 High: >239 19 Low: <40 Desirable: 40-60 High: >60 20 Desirable: <100 Near Optimal: 100-129 Borderline High: 130-159 High: 160-189 Very High: >189 21 Acute inflammation: >10.00 22 Because ethnic data is not always readily [...] 15-29 5 Kidney failure <15 (or dialysis) 23 Desirable <150 Borderline high 150-199 High 200-499 Very High >500 24 Desirable <200 Borderline high 200-239 High >239 25 Low <40 Desirable: 40-60 High: >60 26 Desirable: <100 mg/dL Near Optimal: 100-129 mg/dL Borderline High: 130-159 mg/dL High: 160-189 mg/dL Very High: >189 mg/dL 27 Please schedule labs this week 28 Please schedule labs this Test Performed by: [address] [address] Transportation Solutions Manager: Octavio Jacome II, M.D., Ph.D. 30 Cancelled due to duplicate test on this order Test Performed by: [place] [address] Transportation Solutions Manager: Octavio Jacome II, M.D., Ph.D. 31 Test Performed by: [place] [address] Transportation Solutions Manager: Octavio Jacome II, M.D., Ph.D. 32 Please schedule labs this week 33 Serologic response to B. burgdorferi infection is not detected, but cannot rule out early infection during which low or undetectable antibody levels to B. burgdorferi may be present. If clinically indicated, a new serum specimen should be submitted in 7-14 days. Test Performed by: [place] [address] Transportation Solutions Manager: Octavio Jacome II, M.D., Ph.D. 34 REFERENCE VALUE <=1.0 (Negative) 35 REFERENCE VALUE <20.0 (Negative) 36 Tests for antibodies to dsDNA and NIRAV antigens are not performed automatically unless the KASSY result is > or= 3.0 U. Studies performed at [facility] indicate that positive KASSY results <3.0 U are rarely accompanied by positive second order tests. Test Performed by: [place] [address] Transportation Solutions Manager: Octavio Jacome II, M.D., Ph.D. 37 Please schedule labs this week 38 Acute inflammation: >10.00 39 SEE RESULT BELOW Name: GLADIS DEL CASTILLO: [address]: Jamey Engel MD Acct: [id number] Unit: [id number] AGE: 69 Location: [facility] Re10/23/15 SEX: F Status: REG REF SPEC: [id number] BIANCA: 10/23/[address]: Jamey Engel MD REQ: [id number] RECD: 10/23/15 STATUS: COMP _ SOURCE: STOOL SPDESC: ORDERED: C. diff PCR Procedure Result Reported Site Stool Specimen Description Final 10/23/15- 922 ML Stool Color Brown Stool Form Nonformed Stool Consistency Soft Mucoid C. difficile PCR Final 10/23/15- 918 ML Organism 1 027 Presumptive NEGATIVE Organism 2 Toxigenic C.diff POSITIVE * ML - MAIN LAB ([facility]) . END OF REPORT * ML=Testing performed at Main Lab DEPARTMENT OF PATHOLOGY, [address] [place] [address] Carlos Dodge M.D. Director [facility] # [id number] 40 SEE RESULT BELOW Name: MAGDALENEGLADIS Arce : [address]: Hiro Yarbrough MD Acct: [id number] Unit: [id number] AGE: 69 Location: [place] Re01/28/15 SEX: F Status: REG [facility] SPEC: [id number] BIANCA: 01/28/15- SUBM DR: Hiro Yarbrough MD REQ: [id number] RECD: 01/28/158263 STATUS: SOUT _ ORDERED: Decal, LEVEL III FINAL DIAGNOSIS Bone, right foot, excision: -- Benign bone, cartilage, and fibroconnective tissue with reactive changes. PRE-OPERATIVE DIAGNOSIS Osteoarthrosis right ankle and foot. GROSS DESCRIPTION The specimen is received in formalin labeled, Right Foot Bone Spurs, and consists of a 2.8 x 2.3 x 1.0 cm aggregate of horton-pink irregular bone fragments. House Sitter sections, one cassette following decalcification. MICROSCOPIC DESCRIPTION . Signed (signature on file) Eliane Copeland MD 1202 END OF REPORT * ML=Testing performed at Main Lab DEPARTMENT OF PATHOLOGY, [address] [place] [address] Carlos Dodge M.D. 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 knee M06.4 Inflammatory polyarthropathy M25.562 Pain in left knee M25.462 Effusion, left knee M25.561 Pain in right knee M25.461 Effusion, right knee M17.11 Unilateral primary osteoarthritis, right knee Office Visit 02/21/2018 Rheumatology Adam M17.12 Unilateral primary 11:20a Services Of Jeffy Mooney M.D. 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-steroidal non-inflam (Nsaid) E78.4 Other hyperlipidemia R94.5 Abnormal results of liver function studies Office Visit 09/10/2016 9:00a Rheumatology Adam Mooney M70.71 Other bursitis Services Of Jeffy Barnhart of hip, right hip Z79.1 retirement (current) use of non-steroidal non-inflam (Nsaid) E78.4 Other hyperlipidemia M19.041 Primary osteoarthritis, right hand M19.042 Primary osteoarthritis, left hand Office Visit 04/08/2016 3:45p Neurosurgery Jaden Duckworth M54.5 Low back pain Services Of Jeffy Barnhart Office Visit 03/13/2016 9:40a Rheumatology Adam Mooney R74.0 Nonspec elev of Services Of Jeffy Barnhart levels of transamns & lactic acid dehydrgnse 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 to Clostridium Diseases difficile M06.9 Rheumatoid arthritis, unspecified Office Visit 10/29/2015 [facility] Jamey Borden A04.7 Enterocolitis due 9:10a For Infectious Bronwyn Engel to Clostridium Diseases difficile R74.0 Nonspec elev of levels of transamns & lactic acid dehydrgnse E66.9 Obesity, unspecified Office Visit 10/22/2015 [facility] Jamey Borden A04.7 Enterocolitis due 8:30a For [...] Adam Mooney M.D. at [facility]03/28/2018 - Krista Juárez M.D.M17.12 Unilateral primary osteoarthritis, left kneeFollow up:Follow up: 2 weeks after dyylirhE96.562 Pain in left kneeNew Xrays:Knee 3 Views LT, Ordered: 03/28/18M25.462 Effusion, left knee
--- OUTSIDE RECORDS SUMMARY | 2018-04-07 12:40 | XMS REPORT | Continuity of Care Document ---
:1945 External Reference #:[id number] Author Name Vanessa Collins Care Team Providers Name Role Phone Vikram Rueda MD Primary Care Physician Unavailable Payers Type Date Identification Numbers Payment Provider Subscriber Effective: 2010 Policy Number: [id number] Medicare Gladis Del Castillo PayID: [id number] [address] [place] [address] Effective: 2014 Policy Number: [id number] [facility] Gladis Del Castillo PayID: [id number] [address] [place] [address] Onset: 1991 Policy Number: [id number] Special Funds Gladis Del Castillo Group Number: [id number] [place] [address] Advance Directives Description No Information Available Problems [...] by mouth Zenon, 02/04/ every 4-6 M.D. 2015 hours as needed pain Methotrexate / Hx [...] Date Facility Test Result H/L Range Note CBC Auto Diff 03/28/2018 [facility] White Blood 7.7 10^3/uL N 3.5-10.[address] [place] [address] [phone] Red Blood Count 4.74 10^6/uL N 4.00-5.40 [...] Cells % 0.1 Type & Screen 03/28/2018 [facility] Patient Blood Type O [place] [address] [phone] Antibody Screen NEGATIVE Urinalysis Profile 03/28/2018 [facility] Urine Color Yellow [address] [place] [address] [phone] Urine Appearance Cloudy Urine Specific [place] 1.010 N 1.010-1.030 Urine pH 5.0 N 5-9 Urine Urobilinogen Negative Negative Urine Ketones Negative Negative Urine Protein Negative Negative Urine Leukocytes 3+ Abnormal Negative Urine Blood Negative Negative * * Abnormal Negative 1 Urine Nitrite Negative Negative Urine Bilirubin Negative Negative Urine Glucose Negative Negative Urine White Blood Cell 2+(11-20/hpf) Abnormal Absent Urine Red Blood Cell Absent Absent Urine Bacteria Absent Absent Urine Squamous Epithelial Cell Present Abnormal Absent Inr/Protime 03/28/2018 [facility] Inr 0.90 N 0.77-1.[address] [place] [address] [phone] Laboratory test 03/28/2018 [facility] Partial 39.0 High 26.0- 36.[address] [place] [address] Time PTT [phone] Comp Metabolic 03/28/2018 [facility] Sodium 140 mmol/L N 135- [address] [place] [address] [phone] Potassium 4.5 mmol/L N 3.5-5.0 Chloride 104 [...] Non- 68.5 >60 Egfr 82.9 >60 2 Urine Culture And 03/28/2018 [facility] Urine Culture SEE RESULT [address] [place] [address] [phone] Laboratory test 02/21/2018 [facility] Rheumatoid < 10 IU/mL N <15 [address] [place] [address] [phone] Erythrocyte Sed Rate 8 mm/Hr N 0-40 5 C Reactive Protein < 1.00 mg/L N <8.01 6 Connective Tissue 02/21/2018 [facility] Anti-Nuclear Antibody 0.4 U [address] [place] [address] [phone] Cyclic Citrullinated Peptide <15.6 U 8 Interpretation See Comment 9 CBC Auto Diff 04/16/2017 [facility] White Blood 5.9 10^3/uL N 3.5-10.[address] [place] [address] [phone] Red Blood Count 4.52 10^6/uL N 4.0-5.4 [...] Blood Cells % 0.1 Lipid Profile 04/16/2017 [facility] Triglycerides 97 mg/dL 10 (Trig/Chol/HDL) [address] [place] [address] [phone] Cholesterol 149 mg/dL 11 HDL Cholesterol 61.0 mg/dL 12 LDL Cholesterol 69 mg/dL 13 Laboratory test 04/16/2017 [facility] Erythrocyte Sed 6 mm/Hr N 0-40 [address] [place] [address] [phone] C Reactive Protein < 1.00 mg/L N < 5.00 15 CBC Auto Diff 04/16/2017 [facility] White Blood 5.9 10^3/uL N 3.5-10.[address] [place] [address] [phone] Red Blood Count 4.52 10^6/uL N 4.0-5.4 [...] Cells % 0.1 Comp Metabolic Panel 04/16/2017 [facility] Sodium 138 mmol/L N 133-[address] [place] [address] [phone] Potassium 4.2 mmol/L N 3.5-5.0 Chloride 104 [...] Egfr 86.0 >60 16 Lipid Profile 04/16/2017 [facility] Triglycerides 97 mg/dL 17 (Trig/Chol/HDL) [address] [place] [address] [phone] Cholesterol 149 mg/dL 18 HDL Cholesterol 61.0 mg/dL 19 LDL Cholesterol 69 mg/dL 20 Comp Metabolic Panel 04/16/2017 [facility] Sodium 138 mmol/L N 133-[address] [place] [address] [phone] Potassium 4.2 mmol/L N 3.5-5.0 Chloride 104 [...] Egfr Non- 66.8 >60 Egfr 86.0 >60 21 Laboratory test 04/16/2017 [facility] C Reactive < 1.00 N < 5.00 [address] Protein mg/[place] [address] [phone] Erythrocyte Sed Rate 6 mm/Hr N 0-40 23 Laboratory test 09/10/2016 [facility] Erythrocyte Sed 6 mm/Hr N 0-[address] [place] [address] [phone] C Reactive Protein < 1.00 mg/L N < 5.00 24 CBC Auto Diff 09/10/2016 [facility] White Blood 6.1 10^3/uL N 3.5-10.[address] [place] [address] [phone] Red Blood Count 4.66 10^6/uL N 4.0-5.4 [...] % 0.1 N Comp Metabolic Panel 09/10/2016 [facility] Sodium 141 mmol/L N 133-[address] [place] [address] [phone] Potassium 4.1 mmol/L N 3.5-5.0 Chloride 105 [...] N >60 Egfr 92.5 N >60 25 Lipid Profile 09/10/2016 [facility] Triglycerides 108 mg/dL N 26 (Trig/Chol/HDL) [address] [place] [address] [phone] Cholesterol 153 mg/dL N 27 HDL Cholesterol 60.9 mg/dL N 28 LDL Cholesterol 71 mg/dL N 29 Laboratory test 09/10/2016 [facility] TSH (Thyroid 1.81 mcIU/mL N 0.34-5.[address] Stim Horm) [place] [address] [phone] Laboratory test 12/13/2015 [facility] Creatine 106 U/L N 10- 223 [address] Kinase(CK) [place] [address] [phone] C Reactive Protein < 1.00 mg/L N < 5.00 31 Connective Tissue 12/13/2015 [facility] Anti-Nuclear 0.5 U N [address] [place] [address] [phone] Cyclic Citrullinated Peptide <15.6 U N 33 Interpretation See Comment N 34 Laboratory test 12/13/2015 [facility] TSH (Thyroid 1.75 mcIU/mL N 0.34-5.60 [address] Stim Horm) [place] [address] [phone] Vitamin D 1,25 12/13/2015 [facility] Vitamin D 41.9 ng/mL N 30 -50 36 And Vitamin D,[address] Total 25(Oh) [place] [address] [phone] Vitamin D, 1,25 Dihydroxy 55 pg/mL N 18-78 37 Laboratory test 12/13/2015 [facility] Cyclic Citrullinated TNP N () [address] [place] [address] [phone] Rheumatoid Factor <15 IU/mL N <15 39 Uric Acid 6.9 mg/dL High 2.3-6.6 40 Lyme Disease Serology Negative N Negative 41 Laboratory 10/30/2015 [facility] Hepatitis C Nonreactive N Nonreactive test finding [address] Antibody [place], [place] [phone] Liver Function 10/30/2015 [facility] Total Protein 6.5 g/dL N 6.4-8.[address] [place] [address] [phone] Albumin 4.2 g/dL N 3.2-5.2 Globulin 2.3 g/dL N 2-4 Albumin/Globulin Ratio 1.8 N 1-3 Total Bilirubin 0.70 mg/dL N 0.2-1.0 Direct Bilirubin 0.10 mg/dL N 0.03-0.18 Indirect Bilirubin 0.6 mg/dL N 0.3-1.0 Alkaline Phosphatase 48 U/L N 34-104 Alt 52 U/L N 7-52 Ast 35 U/L N 13-39 Laboratory test 10/23/2015 [facility] C Difficile PCR SEE RESULT [address] [place] [address] [phone] Laboratory test 01/28/2015 [facility] Surgical SEE RESULT [address] [address] [phone] 1 *Ascorbic acid is present which may interfere with detection of blood. 2 Because ethnic data is not always [...] 5 Kidney failure <15 (or dialysis) 3 SEE RESULT BELOW Name: GLADIS DEL CASTILLO Iron : [address]: Krista Juárez MD Acct: [id number] Unit: [id number] AGE: 72 Location: [facility] Re03/28/18 SEX: F Status: REG REF SPEC: [id number] BIANCA: 03/28/[address]: Krista Juárez MD REQ: [id number] RECD: 03/28/18 STATUS: COMP _ SOURCE: URINE SPDESC: ORDERED: Urine Culture QUERIES: Urine Source: Clean Catch Procedure Result Reported Site Urine Culture Final 03/29/18- 1214 ML No Growth (<1,000 CFU/mL) * ML - Main Lab . END OF REPORT DEPARTMENT OF PATHOLOGY, [address] [place] [address] Carlos Dodge M.D. Director [facility] # [id number] 4 Please check today 5 Please check today 6 Please check today 7 REFERENCE VALUE <=1.0 (Negative) 8 REFERENCE VALUE <20.0 (Negative) 9 Tests for antibodies to dsDNA and NIRAV antigens are not performed automatically unless the KASSY result is > or= 3.0 U. Studies performed at [facility] indicate that positive KASSY results <3.0 U are rarely accompanied by positive second order tests. Test Performed by: [facility] - [address] [address] 10 Desirable: <150 Borderline High: 150-199 High: [...] 130-159 High: 160-189 Very High: >189 21 Because ethnic data is not always [...] 15-29 5 Kidney failure <15 (or dialysis) 22 Acute inflammation: >10.00 23 Please check fasting labs in April 02 Acute inflammation: >10.00 25 Because ethnic data [...] 30 Please schedule labs this week 31 Acute inflammation: >10.00 32 REFERENCE VALUE <=1.0 (Negative) 33 REFERENCE VALUE <20.0 (Negative) 34 Tests for antibodies to dsDNA and NIRAV antigens are not performed automatically unless the KASSY result is > or= 3.0 U. Studies performed at [facility] indicate that positive KASSY results <3.0 U are rarely accompanied by positive second order tests. Test Performed by: [place] [address] Clinical Research Nurse: Octavio Jacome II, M.D., Ph.D. 35 Please schedule labs this week 36 Please schedule labs this week 37 Test Performed by: [place] [address] Clinical Research Nurse: Octavio Jacome II, M.D., Ph.D. 38 Cancelled due to duplicate test on this order Test Performed by: [address] [place] [address] Clinical Research Nurse: Octavio Jacome II, M.D., Ph.D. 39 Test Performed by: [facility] [address] Clinical Research Nurse: Octavio Jacome II, M.D., Ph.D. 40 Please schedule labs this week 41 Serologic response to B. burgdorferi infection is not detected, but cannot rule out early infection during which low or undetectable antibody levels to B. burgdorferi may be present. If clinically indicated, a new serum specimen should be submitted in 7-14 days. Test Performed by: [facility] [address] Clinical Research Nurse: Octavio Jacome II, M.D., Ph.D. 42 SEE RESULT BELOW Name: GLADIS DEL CASTILLO : [address]: Jamey Engel MD Acct: [id number] Unit: [id number] AGE: 69 Location: [facility] Re10/23/15 SEX: F Status: REG REF SPEC: [id number] BIANCA: 10/23/[address]: Jamey Engel MD REQ: [id number] RECD: 10/23/15 STATUS: COMP _ SOURCE: STOOL SPDESC: ORDERED: C. diff PCR Procedure Result Reported Site Stool Specimen Description Final 10/23/15922 ML Stool Color Brown Stool Form Nonformed Stool Consistency Soft Mucoid C. difficile PCR Final 10/23/15918 ML Organism 1 027 Presumptive NEGATIVE Organism 2 Toxigenic C.diff POSITIVE * ML - MAIN LAB ([facility]) . END OF REPORT * ML=Testing performed at Main Lab DEPARTMENT OF PATHOLOGY, [address] [place] [address] Carlos Dodge M.D. Director [facility] # [id number] 43 SEE RESULT BELOW Name: GLADIS DEL CASTILLO: [address]: Hiro Yarbrough MD Acct: [id number] Unit: [id number] AGE: 69 Location: [place] Re01/28/15 SEX: F Status: REG SD SPEC: [id number] BIANCA: 01/28/15- [facility] DR: Hiro Yarbrough MD REQ: [id number] RECD: 01/28/154 STATUS: SOUT _ ORDERED: Decal, LEVEL III FINAL DIAGNOSIS Bone, right foot, excision: -- Benign bone, cartilage, and fibroconnective tissue with reactive changes. PRE-OPERATIVE DIAGNOSIS Osteoarthrosis right ankle and foot. GROSS DESCRIPTION The specimen is received in formalin labeled, Right Foot Bone Spurs, and consists of a 2.8 x 2.3 x 1.0 cm aggregate of horton-pink irregular bone fragments. [employer] sections, one cassette following decalcification. MICROSCOPIC DESCRIPTION . Signed (signature on file) Eliane Copeland MD 1202 END OF REPORT * ML=Testing performed at Main Lab DEPARTMENT OF PATHOLOGY, [address] [place] [address] Carlos Dodge M.D. Director [facility] # [id number] Procedures Date Code Description Status 01/28/2015 65465 Arthrodesis Great Toe MP JT Completed 01/28/2015 63201 Arthrodesis Great Toe MP JT Completed Encounters Type Date Location Provider Dx Diagnosis Office Visit 03/21/2018 Rheumatology Jose Williamson12 Unilateral 2:20p Services Of Jeffy Barnhart primary osteoarthritis, left knee M06.4 Inflammatory polyarthropathy Z79.1 jail (current) use of non-steroidal non-inflam (Nsaid) R74.0 [...] right knee Office Visit 02/21/2018 Rheumatology Adam Verde7Tammy Unilateral primary 11:20a [facility] Jeff[facility] Mooney M.D. osteoarthritis, left knee M54.5 Low back pain Z79.1 jail (current) use of non-steroidal non-inflam (Nsaid) R20.8 Other disturbances of skin sensation M06.4 Inflammatory polyarthropathy Office Visit 02/01/2018 Rheumatology Adam Verde7Tammy Unilateral primary 2:40p [facility] Mooney M.D. osteoarthritis, left knee M54.5 Low back pain Z79.1 jail (current) use of non-steroidal non-inflam (Nsaid) Office Visit 12/31/2017 10:00a Rheumatology Services Lien Williamson4.5 Low back Of Field Care Coordinator M.D. 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-steroidal non-inflam (Nsaid) E78.4 Other hyperlipidemia M19.041 Primary osteoarthritis, right hand M19.042 Primary osteoarthritis, left hand Office Visit 04/08/2016 3:45p Neurosurgery Jaden Duckworth M54.5 Low back pain Services Of Jeffy Barnhart Office Visit 03/13/2016 9:40a Rheumatology Adam Mooney R74.0 Nonspec elev of Services Of Jeffy Barnhart levels of transamns & lactic acid dehydrgnse Z79.1 jail (current) use of non-steroidal non-inflam (Nsaid) M19.041 Primary osteoarthritis, right hand M19.042 Primary osteoarthritis, left hand Office Visit 12/12/2015 11:00a Rheumatology Adam M06.00 Rheumatoid Services Of Jeffy Mooney M.D. arthritis without rheumatoid factor, unm hospital site M79.641 Pain in right hand M79.642 Pain in left hand R94.5 Abnormal results of liver function studies R20.8 Other disturbances of skin sensation Office Visit 11/19/2015 [facility] Jamey Borden A04.Kaitlin Enterocolitis due 9:10a For Patel Engel M.D. to Clostridium Diseases difficile M06.9 Rheumatoid arthritis, unspecified Office Visit 10/29/2015 [facility] Jamey Borden A04.7 Enterocolitis due 9:10a For Patel Engel M.D. to Clostridium Diseases difficile R74.0 Nonspec elev of levels of transamns & lactic acid dehydrgnse E66.9 Obesity, unspecified Office Visit 10/22/2015 [facility] Jamey Borden A04.7 Enterocolitis due 8:30a [...] - Adam Mooney M.D. at Rheumatology Services [facility]03/28/2018 - Krista Juárez M.D.M17.12 Unilateral primary osteoarthritis, left kneeFollow up:Follow up: 2 weeks after hnbiptjK40.562 Pain in left kneeM25.462 Effusion, left knee
--- OUTSIDE RECORDS SUMMARY | 2018-04-07 12:40 | XMS REPORT ---
:1945 External Reference #:[id number] Author Organization [email or web address] Address [address] [place] [address] [place] [address] Phone [phone] Care Team Providers Name Role Phone Vikram Rueda MD Primary Care Physician Unavailable Payers Type Date Identification Numbers Payment Provider Subscriber Medicare Primary Effective: Policy Number: Medicare Gladis Del Castillo 2010 [id number] PayID: [id number] [address] [place] [address] Medigap Part B Effective: 2014 Policy Number: [facility] Gladis Perdue Del Castillo [id number] PayID: [id number] [address] [place] [address] Workers Onset: 1991 Policy Number: Special Funds Gladis Perdue Compensation [id number] [employer] Number: [id number] [place] [address] Problems Date Description Provider Status Onset: 03/14/2018 Inflammatory polyarthropathy Krista Juárez M.D. Active Onset: 03/14/2018 Localized, primary osteoarthritis Krista Juárez M.D. Active Onset: 04/08/2016 Low back pain Jaden Duckworth M.D. Active Family History Date Family Member(s) Problem(s) Comments General Cancer General Rheumatoid Arthritis Father Arthritis Father Rheumatoid Arthritis Father Gout Social History Type Date Description Comments Lives With Alone Occupation Retired ETOH Use Occasionally consumes alcohol Smoking Patient is a former smoker quit 3 years ago and was a light smoker Recreational Drug Use Denies Drug Use Exercise Type/Frequency Exercises sporadically Allergies, Adverse Reactions, Alerts Date Description Reaction Status Severity Comments 12/12/2015 Augmentin c.diff active 12/18/2014 NKDA inactive Medications Medication Date Status Form Strength Qnty SIG Indications Ordering Provider Aspercreme 02/01/ Active Cream 4% 6units apply Adam W/Lidocaine 2018 twice Jesica, daily to M.D. the painful joints as needed Celebrex / Active Capsules 200mg 1 by Unknown 0000 mouth every day Glucosamine / Active Capsules 1500Com 1 by Unknown Chondroitin 1500 0000 mouth Complex every day Vitamin D / Active Capsules 3000mg 1 by Unknown 0000 [...] Calcium 0000 mouth every night at bedtime Oxycodone HCL 12/31/ Hx Tablets 5mg 15tabs 1 tablet Adam 2017 - by mouth Jesica, 03/21/ every 8 M.D. 2018 hours as needed for pain Metronidazole 10/21/ Hx Tablets 500mg 42tabs 1 tab by A04.7 Jamey Borden 2015 - mouth Katarzynaen, 11/11/ three M.D. 2016 times a day Oxycodone HCL 01/18/ Hx Tablets 5mg 60tabs 1-2 tabs [id number] Hiro 2014 - by mouth Zenon, 02/04/ every 4-6 M.D. 2015 hours as needed pain Methotrexate / Hx Tablets 2.5mg on hold 5 Unknown 0000 - po once a week. 2016 Fish Oil / Hx Capsules 2000mg Unknown 0000 - 2016 Cinnamon / Hx Capsules 1000mg 1 by Unknown 0000 - mouth every day 2016 Folic Acid / Hx Tablets 1mg 1 by Unknown 0000 - mouth day 2016 Gabapentin / Hx Capsules 100mg take 1 Unknown 0000 - tab tid prn 2018 Vital Signs Date Vital Result Comment 03/21/2018 Height 63.25 inches 5'3.25" Weight 243.38 lb Heart Rate 79 /min BP Systolic Sitting 174 mmHg BP Diastolic Sitting 80 mmHg Respiratory Rate 16 /min Pain Level 3 BMI (Body Mass Index) 42.8 kg/m2 03/14/2018 Height 63.25 inches 5'3.25" Weight 244.00 lb Heart Rate 80 /min BP Systolic 138 mmHg BP Diastolic 80 mmHg BMI (Body Mass Index) 42.9 kg/m2 02/21/2018 Height 64 inches 5'4" Weight 246.00 lb Heart Rate 68 /min BP Systolic Sitting 126 mmHg BP Diastolic Sitting 80 mmHg Respiratory Rate 14 /min Pain Level 6 BMI (Body Mass Index) 42.2 kg/m2 02/01/2018 Height 64 inches 5'4" Weight 247.38 lb Heart Rate 76 /min BP Systolic Sitting 140 mmHg BP Diastolic Sitting 88 mmHg Pain Level 3 O2 % BldC Oximetry 96 % BMI (Body Mass Index) 42.5 kg/m2 12/31/2017 Height 64 inches 5'4" Weight 249.00 lb Heart Rate 74 /min BP Systolic Sitting 140 mmHg BP Diastolic Sitting 90 mmHg Respiratory Rate 14 /min Pain Level 7 BMI (Body Mass Index) 42.7 kg/m2 07/16/2017 Height 64 inches 5'4" Weight 258.00 lb Heart Rate 73 /min BP Systolic Sitting 144 mmHg BP Diastolic Sitting 78 mmHg Respiratory Rate 14 /min Pain Level 2 BMI (Body Mass Index) 44.3 kg/m2 12/15/2016 Height 64 inches 5'4" Weight 258.00 lb Heart Rate 84 /min BP Systolic Sitting 126 mmHg BP Diastolic Sitting 74 mmHg Respiratory Rate 14 /min Pain Level 0 BMI (Body Mass Index) 44.3 kg/m2 09/10/2016 Height 64 inches 5'4" Weight 260.00 lb Heart Rate 80 /min BP Systolic Sitting 140 mmHg BP Diastolic Sitting 100 mmHg Respiratory Rate 14 /min Pain Level 3 BMI (Body Mass Index) 44.6 kg/m2 04/08/2016 Height 64 inches 5'4" Weight 251.00 lb Heart Rate 60 /min BP Systolic Sitting 138 mmHg BP Diastolic Sitting 94 mmHg Pain Level 0 BMI (Body Mass Index) 43.1 kg/m2 03/13/2016 Height 64 inches 5'4" Weight 254.38 lb Heart Rate 76 /min BP Systolic Sitting 120 mmHg BP Diastolic Sitting 70 mmHg Respiratory Rate 14 /min Body Temperature 97.5 F Pain Level 0 BMI (Body Mass Index) 43.7 kg/m2 12/12/2015 Height 64 inches 5'4" Weight 259.00 lb Heart Rate 72 /min BP Systolic Sitting 150 mmHg BP Diastolic Sitting 88 mmHg Respiratory Rate 14 /min Body Temperature 97.8 F Pain Level 2 BMI (Body Mass Index) 44.5 kg/m2 11/19/2015 Height 64 inches 5'4" Weight 259.00 lb Heart Rate 80 /min BP Systolic Sitting 134 mmHg BP Diastolic Sitting 88 mmHg Respiratory Rate 14 /min Body Temperature 97.8 F BMI (Body Mass Index) 44.5 kg/m2 10/29/2015 Height 64 inches 5'4" Weight 259.00 lb Heart Rate 60 /min BP Systolic Sitting 138 mmHg BP Diastolic Sitting 88 mmHg Respiratory Rate 14 /min Body Temperature 97.5 F BMI (Body Mass Index) 44.5 kg/m2 10/22/2015 Weight 257.00 lb Heart Rate 80 /min BP Systolic Sitting 176 mmHg BP Diastolic Sitting 82 mmHg O2 % BldC Oximetry 97 % 03/19/2015 Height 64 inches 5'4" Weight 258.00 lb Pain Level 0 BMI (Body Mass Index) 44.3 kg/m2 02/28/2015 Height 64 inches 5'4" Weight 258.00 lb Pain Level 0 BMI (Body Mass Index) 44.3 kg/m2 02/07/2015 Height 64 inches 5'4" Weight 258.00 lb Body Temperature 97.5 F Pain Level 0 BMI (Body Mass Index) 44.3 kg/m2 01/18/2015 Height 64 inches 5'4" Weight 258.00 lb Heart Rate 76 /min BP Systolic 132 mmHg BP Diastolic 88 mmHg Body Temperature 97.1 F Pain Level 0 BMI (Body Mass Index) 44.3 kg/m2 12/18/2014 Height 64 inches 5'4" Weight 258.00 lb Pain Level 3 BMI (Body Mass Index) 44.3 kg/m2 Results Test Date Test Result H/L Range Note Connective Tissue Panel 02/21/2018 Anti-Nuclear Antibody 0.4 U 1 Cyclic Citrullinated Peptide <15.6 U 2 Interpretation See Comment 3 Laboratory test finding 02/21/2018 Rheumatoid Factor < 10 IU/mL <15 4 Erythrocyte Sed Rate 8 mm/Hr 0-40 5 C Reactive Protein < 1.00 mg/L <8.01 6 Laboratory test finding 04/16/2017 C Reactive Protein < 1.00 mg/L < 5.00 7 Erythrocyte Sed Rate 6 mm/Hr 0-40 8 Comp Metabolic Panel 04/16/2017 Sodium 138 mmol/L 133-145 Potassium 4.2 mmol/L 3.5-5.0 Chloride 104 mmol/L 101-111 Co2 Carbon Dioxide 28 mmol/L 22-32 Anion Gap 6 mmol/L 2-11 Glucose 103 mg/dL High 70-100 Blood Urea Nitrogen 13 mg/dL 6-24 Creatinine 0.84 mg/dL 0.51-0.95 BUN/Creatinine Ratio 15.5 8-20 Calcium 9.5 mg/dL 8.6-10.3 Total Protein 6.5 g/dL 6.4-8.9 Albumin 4.3 g/dL 3.2-5.2 Globulin 2.2 g/dL 2-4 Albumin/Globulin Ratio 2.0 1-3 Total Bilirubin 1.20 mg/dL High 0.2-1.0 Alkaline Phosphatase 45 U/L 34-104 Alt 40 U/L 7-52 Ast 34 U/L 13-39 Egfr Non- 66.8 >60 Egfr 86.0 >60 9 CBC Auto Diff 04/16/2017 White Blood Count 5.9 10^3/uL 3.5-10.8 Red Blood Count 4.52 10^6/uL 4.0-5.4 Hemoglobin 14.3 g/dL 12.0-16.0 Hematocrit 42 % 35-47 Mean Corpuscular Volume 92 fL 80-97 Mean Corpuscular Hemoglobin 32 pg High 27-31 Mean Corpuscular HGB Conc 35 g/dL 31-36 Red Cell Distribution Width 13 % 10.5-15 Platelet Count 214 10^3/uL 150-450 Mean Platelet Volume 9 um3 7.4-10.4 Abs Neutrophils 3.5 10^3/uL 1.5-7.7 Abs Lymphocytes 1.7 10^3/uL 1.0-4.8 Abs Monocytes 0.5 10^3/uL 0-0.8 Abs Eosinophils 0.2 10^3/uL 0-0.6 Abs Basophils 0 10^3/uL 0-0.2 Abs Nucleated RBC 0.01 10^3/uL Granulocyte % 59.2 % 38-83 Lymphocyte % 29.4 % 25-47 Monocyte % 8.0 % 1-9 Eosinophil % 2.7 % 0-6 Basophil % 0.7 % 0-2 Nucleated Red Blood Cells % 0.1 Lipid Profile (Trig/Chol/HDL) 04/16/2017 Triglycerides 97 mg/dL 10 Cholesterol 149 mg/dL 11 HDL Cholesterol 61.0 mg/dL 12 LDL Cholesterol 69 mg/dL 13 Comp Metabolic Panel 04/16/2017 Sodium 138 mmol/L 133-145 Potassium 4.2 mmol/L 3.5-5.0 Chloride 104 mmol/L 101-111 Co2 Carbon Dioxide 28 mmol/L 22-32 Anion Gap 6 mmol/L 2-11 Glucose 103 mg/dL High 70-100 Blood Urea Nitrogen 13 mg/dL 6-24 Creatinine 0.84 mg/dL 0.51-0.95 BUN/Creatinine Ratio 15.5 8-20 Calcium 9.5 mg/dL 8.6-10.3 Total Protein 6.5 g/dL 6.4-8.9 Albumin 4.3 g/dL 3.2-5.2 Globulin 2.2 g/dL 2-4 Albumin/Globulin Ratio 2.0 1-3 Total Bilirubin 1.20 mg/dL High 0.2-1.0 Alkaline Phosphatase 45 U/L 34-104 Alt 40 U/L 7-52 Ast 34 U/L 13-39 Egfr Non- 66.8 >60 Egfr 86.0 >60 14 CBC Auto Diff 04/16/2017 White Blood Count 5.9 10^3/uL 3.5-10.8 Red Blood Count 4.52 10^6/uL 4.0-5.4 Hemoglobin 14.3 g/dL 12.0-16.0 Hematocrit 42 % 35-47 Mean Corpuscular Volume 92 fL 80-97 Mean Corpuscular Hemoglobin 32 pg High 27-31 Mean Corpuscular HGB Conc 35 g/dL 31-36 Red Cell Distribution Width 13 % 10.5-15 Platelet Count 214 10^3/uL 150-450 Mean Platelet Volume 9 um3 7.4-10.4 Abs Neutrophils 3.5 10^3/uL 1.5-7.7 Abs Lymphocytes 1.7 10^3/uL 1.0-4.8 Abs Monocytes 0.5 10^3/uL 0-0.8 Abs Eosinophils 0.2 10^3/uL 0-0.6 Abs Basophils 0 10^3/uL 0-0.2 Abs Nucleated RBC 0.01 10^3/uL Granulocyte % 59.2 % 38-83 Lymphocyte % 29.4 % 25-47 Monocyte % 8.0 % 1-9 Eosinophil % 2.7 % 0-6 Basophil % 0.7 % 0-2 Nucleated Red Blood Cells % 0.1 Laboratory test finding 04/16/2017 Erythrocyte Sed Rate 6 mm/Hr 0-40 15 C Reactive Protein < 1.00 mg/L < 5.00 16 Lipid Profile (Trig/Chol/HDL) 04/16/2017 Triglycerides 97 mg/dL 17 Cholesterol 149 mg/dL 18 HDL Cholesterol 61.0 mg/dL 19 LDL Cholesterol 69 mg/dL 20 CBC Auto Diff 09/10/2016 White Blood Count 6.1 10^3/uL 3.5-10.8 Red Blood Count 4.66 10^6/uL 4.0-5.4 Hemoglobin 14.4 g/dL 12.0-16.0 Hematocrit 43 % 35-47 Mean Corpuscular Volume 92 fL 80-97 Mean Corpuscular Hemoglobin 31 pg 27-31 Mean Corpuscular HGB Conc 34 g/dL 31-36 Red Cell Distribution Width 13 % 10.5-15 Platelet Count 192 10^3/uL 150-450 Mean Platelet Volume 9 um3 7.4-10.4 Abs Neutrophils 3.8 10^3/uL 1.5-7.7 Abs Lymphocytes 1.7 10^3/uL 1.0-4.8 Abs Monocytes 0.5 10^3/uL 0-0.8 Abs Eosinophils 0.1 10^3/uL 0-0.6 Abs Basophils 0 10^3/uL 0-0.2 Abs Nucleated RBC 0 10^3/uL Granulocyte % 61.2 % 38-83 Lymphocyte % 27.9 % 25-47 Monocyte % 7.9 % 1-9 Eosinophil % 2.4 % 0-6 Basophil % 0.6 % 0-2 Nucleated Red Blood Cells % 0.1 Comp Metabolic Panel 09/10/2016 Sodium 141 mmol/L 133-145 Potassium 4.1 mmol/L 3.5-5.0 Chloride 105 mmol/L 101-111 Co2 Carbon Dioxide 30 mmol/L 22-32 Anion Gap 6 mmol/L 2-11 Glucose 99 mg/dL 70-100 Blood Urea Nitrogen 12 mg/dL 6-24 Creatinine 0.79 mg/dL 0.51-0.95 BUN/Creatinine Ratio 15.2 8-20 Calcium 9.4 mg/dL 8.6-10.3 Total Protein 6.6 g/dL 6.4-8.9 Albumin 4.2 g/dL 3.2-5.2 Globulin 2.4 g/dL 2-4 Albumin/Globulin Ratio 1.8 1-3 Total Bilirubin 1.30 mg/dL High 0.2-1.0 Alkaline Phosphatase 41 U/L 34-104 Alt 34 U/L 7-52 Ast 28 U/L 13-39 Egfr Non- 71.9 >60 Egfr 92.5 >60 21 Lipid Profile (Trig/Chol/HDL) 09/10/2016 Triglycerides 108 mg/dL 22 Cholesterol 153 mg/dL 23 HDL Cholesterol 60.9 mg/dL 24 LDL Cholesterol 71 mg/dL 25 Laboratory test finding 09/10/2016 TSH (Thyroid Stim Horm) 1.81 mcIU/mL 0.34-5.60 Laboratory test finding 09/10/2016 Erythrocyte Sed Rate 6 mm/Hr 0-40 C Reactive Protein < 1.00 mg/L < 5.00 26 Laboratory test finding 12/13/2015 TSH (Thyroid Stim 1.75 mcIU/mL 0.34- 5.60 27 Horm) Vitamin D 1,25 And 12/13/2015 Vitamin D Total 25(Oh) 41.9 ng/mL 30-50 28 Vitamin D,2 Vitamin D, 1,25 Dihydroxy 55 pg/mL 18-78 29 Laboratory test finding 12/13/2015 Cyclic Citrullinated Pep Igg TNP () 30 Rheumatoid Factor <15 IU/mL <15 31 Uric Acid 6.9 mg/dL High 2.3-6.6 32 Lyme Disease Serology Negative Negative 33 Connective Tissue Panel 12/13/2015 Anti-Nuclear Antibody 0.5 U 34 Cyclic Citrullinated Peptide <15.6 U 35 Interpretation See Comment 36 Laboratory test finding 12/13/2015 Creatine Kinase(CK) 106 U/L 10-223 37 C Reactive Protein < 1.00 mg/L < 5.00 38 Laboratory test finding 10/30/2015 Hepatitis C Antibody Nonreactive Nonreactive Liver Function Panel 10/30/2015 Total Protein 6.5 g/dL 6.4-8.9 Albumin 4.2 g/dL 3.2-5.2 Globulin 2.3 g/dL 2-4 Albumin/Globulin Ratio 1.8 1-3 Total Bilirubin 0.70 mg/dL 0.2-1.0 Direct Bilirubin 0.10 mg/dL 0.03-0.18 Indirect Bilirubin 0.6 mg/dL 0.3-1.0 Alkaline Phosphatase 48 U/L 34-104 Alt 52 U/L 7-52 Ast 35 U/L 13-39 Laboratory test finding 10/23/2015 C Difficile PCR SEE RESULT BELOW 39 Laboratory test finding 01/28/2015 Surgical Pathology SEE RESULT BELOW 40 1 REFERENCE VALUE <=1.0 (Negative) 2 REFERENCE VALUE <20.0 (Negative) 3 Tests for antibodies to dsDNA and NIRAV antigens are not performed automatically unless the KASSY result is > or= 3.0 U. Studies performed at [facility] indicate that positive KASSY results <3.0 U are rarely accompanied by positive second order tests. Test Performed by: [facility] [place] [address] 4 Please check today 5 Please check [...] 130-159 High: 160-189 Very High: >189 14 Because ethnic data is not always readily [...] 15-29 5 Kidney failure <15 (or dialysis) 15 Please check fasting labs in March 25 Acute inflammation: >10.00 17 Desirable: <150 Borderline High: 150-199 High: [...] 5 Kidney failure <15 (or dialysis) 22 Desirable <150 Borderline high 150-199 High 200-499 Very High >500 23 Desirable <200 Borderline high 200-239 High >239 24 Low <40 Desirable: 40-60 High: >60 25 Desirable: <100 mg/dL Near Optimal: 100-129 mg/dL Borderline High: 130-159 mg/dL High: 160-189 mg/dL Very High: >189 mg/dL 26 Acute inflammation: >10.00 27 Please schedule labs this 28 Please schedule labs this 29 Test Performed by: [place] [address] Bark Fitter: Octavio Jacome II, M.D., Ph.D. 30 Cancelled due to duplicate test on this order Test Performed by: [place] [address] Bark Fitter: Octavio Jacome II, M.D., Ph.D. 31 Test Performed by: [place] [address] Bark Fitter: Octavio Jacome II, M.D., Ph.D. 32 Please schedule labs this week 33 Serologic response to B. burgdorferi infection is not detected, but cannot rule out early infection during which low or undetectable antibody levels to B. burgdorferi may be present. If clinically indicated, a new serum specimen should be submitted in 7-14 days. Test Performed by: [place] [address] Bark Fitter: Octavio Jacome II, M.D., Ph.D. 34 REFERENCE VALUE <=1.0 (Negative) 35 REFERENCE VALUE <20.0 (Negative) 36 Tests for antibodies to dsDNA and NIRAV antigens are not performed automatically unless the KASSY result is > or= 3.0 U. Studies performed at [facility] indicate that positive KASSY results <3.0 U are rarely accompanied by positive second order tests. Test Performed by: [facility] - [address] [address] Bark Fitter: Octavio Jacome II, M.D., Ph.D. 37 Please schedule labs this week 38 Acute inflammation: >10.00 39 SEE RESULT BELOW Name: GLADIS DEL CASTILLO : [address]: Jamey Engel MD Acct: [id number] Unit: [id number] AGE: 69 Location: [facility] Re10/23/15 SEX: F Status: REG REF SPEC: [id number] BIANCA: 10/23/[address]: Jamey Engel MD REQ: [id number] RECD: 10/23/15 STATUS: COMP _ SOURCE: STOOL SPDESC: ORDERED: Ronal clement PCR Procedure Result Reported Site Stool Specimen Description Final 10/23/15- 922 ML Stool Color Brown Stool Form Nonformed Stool Consistency Soft Mucoid C. difficile PCR Final 10/23/15- 918 ML Organism 1 027 Presumptive NEGATIVE Organism 2 Toxigenic C.diff POSITIVE * ML - MAIN LAB (PSC1) . END OF REPORT * ML=Testing performed at Main Lab DEPARTMENT OF PATHOLOGY, [address] [place] [address] Carlos Dodge M.D. Director [facility] # [id number] 40 SEE RESULT BELOW Name: GLADIS DEL CASTILLO : [address]: Hiro Yarbrough MD Acct: [id number] Unit: [id number] AGE: 69 Location: OR Re01/28/15 SEX: F Status: REG SDC SPEC: [id number] BIANCA: 01/28/15- SUBM DR: Hiro Yarbrough MD REQ: [id number] RECD: 01/28/151404 STATUS: SOUT _ ORDERED: Decal, LEVEL III FINAL DIAGNOSIS Bone, right foot, excision: -- Benign bone, cartilage, and fibroconnective tissue with reactive changes. PRE-OPERATIVE DIAGNOSIS Osteoarthrosis right ankle and foot. GROSS DESCRIPTION The specimen is received in formalin labeled, Right Foot Bone Spurs, and consists of a 2.8 x 2.3 x 1.0 cm aggregate of horton-pink irregular bone fragments. Bunk Assembler sections, one cassette following decalcification. MICROSCOPIC DESCRIPTION . Signed (signature on file) Eliane Copeland MD 1202 END OF REPORT * ML=Testing performed at Main Lab DEPARTMENT OF PATHOLOGY, [address] [place] [address] Carlos Dodge M.D. Director [facility] # [id number] Procedures Date CPT Code Description Status 01/28/2015 31592 Arthrodesis Great Toe MP RADHA Completed 01/28/2015 33333 Arthrodesis Great Toe MP AnandT Completed Encounters Type Date Location Provider CPT E/M Dx Office Visit 03/14/2018 [facility]a Ju[facility]rez M.D. 91269 M17.12 2:00p C.M.AJocelyn M06.4 M25.562 M25.462 M25.561 M25.461 M17.11 Office Visit 02/21/2018 11:20a [facility] Adam Mooney 22528 M17.12 Of [employer] M.D. M54.5 Z79.1 R20.8 M06.4 Office Visit 02/01/2018 2:40p [facility] Adam Mooney 29911 M17.12 Of [employer] M.D. M54.5 Z79.1 Office Visit 12/31/2017 10:00a [facility] Adam Mooney 77704 M54.5 [employer] M.D. Z79.1 R20.8 Office Visit 07/16/2017 10:00a [facility] Adam Mooney 99797 M54.5 [employer] Tr[employer] M.D. M70.71 Z79.1 R94.5 Office Visit 12/15/2016 8:00a [facility] Adam Mooney 29311 M70.71 Of [employer] M.D. Z79.1 E78.4 R94.5 Office Visit 09/10/2016 9:00a [facility] Adam Mooney 03261 M70.71 Of [employer] M.D. Z79.1 E78.4 M19.041 M19.042 Office Visit 04/08/2016 3:45p [facility] Jaden Duckworth M.D. 12597 M54.5 Of [facility] Office Visit 03/13/2016 9:40a [facility] Adam Mooney M.D. 45410 R74.0 Of [employer] Z79.1 M19.041 M19.042 Office Visit 12/12/2015 11:00a [facility] Adam Mooney 59703 M06.00 Of [facility] M.D. M79.641 M79.642 R94.5 R20.8 Office Visit 11/19/2015 9:10a [facility] Fanta Engel, 98428 A04.7 Infectious Diseases M.D. M06.9 Office Visit 10/29/2015 9:10a [facility] Fanta Engel, 12649 A04.7 Infectious Diseases M.D. R74.0 E66.9 Office Visit 10/22/2015 8:30a [facility] Fanta Engel, 25557 A04.7 Infectious Diseases Bronwyn R10.84 Office Visit 12/18/2014 1:40p [facility] Hiro Zenon, 11739 715.17 ..lAexia Barnhart Plan of Care Future Appointment(s):04/07/2018 3:30 pm - СВЕТЛАНА [place] at [facility]04/07/2018 3:30 pm - ADRIEL Rodrigues at [facility]04/07/2018 3:30 pm - Krista Juárez M.D. at [facility]03/28/2018 8:30 am - Krista Juárez M.D. at [facility]05/05/2018 11:20 am - Adam Mooney M.D. at [facility]03/21/2018 - Adam Mooney M.D.M17.12 Unilateral primary osteoarthritis, left kneeM06.4 Inflammatory hstqkqrbmhtgsdjG39.1 [facility] ( current) use of non-steroidal non-inflam (Nsaid)R74.0 Nonspec elev of levels of transamns & lactic acid dehydrgnse
--- OUTSIDE RECORDS SUMMARY | 2018-04-07 12:41 | XMS REPORT ---
:1945 External Reference #:[id number] Author Organization [employer] Address [address] [place] [address] [place] [address] Phone [phone] Care Team Providers Name Role Phone Vikram Rueda MD Primary Care Physician Unavailable Payers Type Date Identification Numbers Payment Provider Subscriber Medicare Primary Effective: Policy Number: Medicare Gladis Del Castillo 2010 [id number] PayID: [id number] [address] [place] [address] Medigap Part B Effective: 2014 Policy Number: [facility] Gladis Perdue Del Castillo [id number] PayID: [id number] [address] [place] [address] Workers Onset: 1991 Policy Number: Special Funds Gladis Perdue Compensation [id number] [employer] Number: [id number] [place] [address] Problems Date Description Provider Status Onset: 03/14/2018 [...] Active Cream 4% 6units apply Adam W/Lidocaine 2017 twice Jesica, daily to M.D. the painful joints as needed Oxycodone HCL 12/31/ Active Tablets 5mg 15tabs 1 tablet Adam 2017 by mouth Jesica, every 8 M.D. hours as needed for pain Celebrex / Active Capsules 200mg 1 by [...] Calcium 0000 mouth every night at bedtime Gabapentin / Active Capsules 100mg take 1 Unknown 0000 tab tid prn Metronidazole 10/21/ Hx Tablets 500mg 42tabs 1 [...] 0000 - mouth 03/13/ every day 2016 Vital Signs Date Vital Result Comment 03/14/2018 Height 63.25 inches 5'3.25" Weight 244.00 [...] Reactive Protein < 1.00 mg/L <8.01 6 Lipid Profile (Trig/Chol/HDL) 04/16/2017 Triglycerides 97 mg/dL 7 Cholesterol 149 mg/dL 8 HDL Cholesterol 61.0 mg/dL 9 LDL Cholesterol 69 mg/dL 10 Comp Metabolic Panel 04/16/2017 Sodium 138 mmol/L [...] Egfr Non- 66.8 >60 Egfr 86.0 >60 11 Laboratory test finding 04/16/2017 C Reactive Protein < 1.00 mg/L < 5.00 12 Erythrocyte Sed Rate 6 mm/Hr 0-40 13 Comp Metabolic Panel 04/16/2017 Sodium 138 [...] 0-2 Nucleated Red Blood Cells % 0.1 CBC Auto Diff 04/16/2017 White Blood Count [...] LDL Cholesterol 69 mg/dL 20 Laboratory test finding 09/10/2016 TSH (Thyroid Stim Horm) 1.81 mcIU/mL 0.34-5.60 Laboratory test finding 09/10/2016 Erythrocyte Sed Rate 6 mm/Hr 0-40 C Reactive Protein < 1.00 mg/L < 5.00 21 CBC Auto Diff 09/10/2016 White Blood Count [...] Egfr Non- 71.9 >60 Egfr 92.5 >60 22 Lipid Profile (Trig/Chol/HDL) 09/10/2016 Triglycerides 108 mg/dL 23 Cholesterol 153 mg/dL 24 HDL Cholesterol 60.9 mg/dL 25 LDL Cholesterol 71 mg/dL 26 Laboratory test finding 12/13/2015 Cyclic Citrullinated Pep Igg TNP () 27 Rheumatoid Factor <15 IU/mL <15 28 Uric Acid 6.9 mg/dL High 2.3-6.6 29 Lyme Disease Serology Negative Negative 30 Vitamin D 1,25 And Vitamin 12/13/2015 Vitamin D Total 25(Oh) 41.9 ng/mL 30-50 31 D,2 Vitamin D, 1,25 Dihydroxy 55 pg/mL 18-78 32 Laboratory test finding 12/13/2015 TSH (Thyroid Stim 1.75 mcIU/mL 0.34- 5.60 33 Horm) Connective Tissue Panel 12/13/2015 Anti-Nuclear Antibody 0.5 U 34 Cyclic Citrullinated Peptide <15.6 U 35 Interpretation See Comment 36 Laboratory test finding 12/13/2015 Creatine Kinase(CK) 106 U/L 10-223 37 C Reactive Protein < 1.00 mg/L < 5.00 38 Liver Function Panel 10/30/2015 Total Protein 6.5 g/dL 6.4-8.9 Albumin 4.2 g/dL 3.2-5.2 Globulin 2.3 g/dL 2-4 Albumin/Globulin Ratio 1.8 1-3 Total Bilirubin 0.70 mg/dL 0.2-1.0 Direct Bilirubin 0.10 mg/dL 0.03-0.18 Indirect Bilirubin 0.6 mg/dL 0.3-1.0 Alkaline Phosphatase 48 U/L 34-104 Alt 52 U/L 7-52 Ast 35 U/L 13-39 Laboratory test 10/30/2015 Hepatitis C Nonreactive Nonreactive finding Antibody Laboratory test 10/23/2015 C Difficile PCR SEE RESULT BELOW 39 finding Laboratory test 01/28/2015 Surgical Pathology SEE RESULT BELOW 40 finding 1 REFERENCE VALUE <=1.0 (Negative) 2 REFERENCE VALUE <20.0 (Negative) 3 Tests for antibodies to dsDNA and NIRAV antigens are not performed automatically unless the KASSY result is > or= 3.0 U. Studies performed at [facility] indicate that positive KASSY results <3.0 U are rarely accompanied by positive second order tests. Test Performed by: [address] [address] 4 Please check today 5 Please check today 6 Please check today 7 Desirable: <150 Borderline High: 150-199 High: 200-499 Very High: >500 8 Desirable: <200 Borderline High: 200-239 High: >239 9 Low: <40 Desirable: 40-60 High: >60 10 Desirable: <100 Near Optimal: 100-129 Borderline High: 130-159 High: 160-189 Very High: >189 11 Because ethnic data is not always readily [...] 15-29 5 Kidney failure <15 (or dialysis) 12 Acute inflammation: >10.00 13 Please check fasting labs in March 23 Because ethnic data is not always readily [...] 160-189 mg/dL Very High: >189 mg/dL 27 Cancelled due to duplicate test on this order Test Performed by: [place] [address] Research Coordinator: Octavio Jacome II, M.D., Ph.D. 28 Test Performed by: [place] [address] Research Coordinator: Octavio Jacome II, M.D., Ph.D. 29 Please schedule labs this week 30 Serologic response to B. burgdorferi infection is not detected, but cannot rule out early infection during which low or undetectable antibody levels to B. burgdorferi may be present. If clinically indicated, a new serum specimen should be submitted in 7-14 days. Test Performed by: [place] [address] Research Coordinator: Octavio Jacome II, M.D., Ph.D. 31 Please schedule labs this week 32 Test Performed by: [place] [address] Research Coordinator: Octavio Jacome II, M.D., Ph.D. 33 Please schedule labs this week 34 REFERENCE VALUE <=1.0 (Negative) 35 REFERENCE VALUE <20.0 (Negative) 36 Tests for antibodies to dsDNA and NIRAV antigens are not performed automatically unless the KASSY result is > or= 3.0 U. Studies performed at [facility] indicate that positive KASSY results <3.0 U are rarely accompanied by positive second order tests. Test Performed by: [place] [address] Research Coordinator: Octavio Jacome II, M.D., Ph.D. 37 Please schedule labs this week 38 Acute inflammation: >10.00 39 SEE RESULT BELOW Name: GLADIS DEL CASTILLO : [address]: Jamey Acharya MD Acct: [id number] Unit: [id number] AGE: 69 Location: [facility] Re10/23/15 SEX: F Status: REG REF SPEC: [id number] BIANCA: 10/23/[address]: Jamey Acharya MD REQ: [id number] RECD: 10/23/15 STATUS: COMP _ SOURCE: STOOL [...] performed at Main Lab DEPARTMENT OF PATHOLOGY, [address] [place] [address] Carlos Dodge M.D. Director [facility] # [id number] 40 SEE RESULT BELOW Name: GLADIS DEL CASTILLO : [address]: Hiro Yarbrough MD Acct: [id number] Unit: [id number] AGE: 69 Location: [place] Re01/28/15 SEX: F Status: REG [facility] SPEC: [id number] BIANCA: 01/28/15- SUBM DR: Hiro Yarbrough MD REQ: [id number] RECD: 01/28/15-1404 STATUS: SOUT _ ORDERED: Decal, LEVEL III FINAL DIAGNOSIS Bone, right foot, excision: -- Benign bone, cartilage, and fibroconnective tissue with reactive changes. PRE-OPERATIVE DIAGNOSIS Osteoarthrosis right ankle and foot. GROSS DESCRIPTION The specimen is received in formalin labeled, Right Foot Bone Spurs, and consists of a 2.8 x 2.3 x 1.0 cm aggregate of horton-pink irregular bone fragments. Thimble Press Operator sections, one cassette following decalcification. MICROSCOPIC DESCRIPTION . Signed (signature on file) Eliane Copeland MD 1202 END OF REPORT * ML=Testing performed at Main Lab DEPARTMENT OF PATHOLOGY, [address] [place] [address] Carlos Dodge M.D. Director [facility] # [id number] Procedures Date CPT Code Description Status 01/28/2015 72767 Arthrodesis Great Toe MP JT Completed 01/28/2015 26620 Arthrodesis Great Toe MP JT Completed Encounters Type Date Location Provider CPT E/M Dx Office Visit 02/21/2018 [facility] Adam Mooney M.D. 84217 M17.12 11:20a Of Jeffy M5Basia.Nick Z79.1 R20.8 M06.4 Office Visit 02/01/2018 2:40p [facility] Adam Mooney 74825 M17.12 Of Jeffy Barnhart M54.5 Z79.1 Office Visit 12/31/2017 10:00a [facility] Of Adam Mooney 68787 M54.5 Rn Neurosurgical M.D. Z79.1 R20.8 Office Visit 07/16/2017 10:00a [facility] Of Adam Mooney 62421 M54.5 [facility] M.D. M70.71 Z79.1 R94.5 Office Visit 12/15/2016 8:00a [facility] Adam Mooney 46978 M70.71 Of [facility] M.D. Z79.1 E78.4 R94.5 Office Visit 09/10/2016 9:00a [facility] Adam Mooney 78929 M70.71 Of Rn Neurosurgical M.D. Z79.1 E78.4 M19.041 M19.042 Office Visit 04/08/2016 3:45p [facility] Services Jaden Duckworth M.D. 74431 M54.5 Of [facility] Office Visit 03/13/2016 9:40a [facility] Adam Mooney M.D. 02988 R74.0 Of [facility] Z79.1 M19.041 M19.042 Office Visit 12/12/2015 11:00a [facility] Adam Mooney, 15413 M06.00 Of [facility] M.D. M79.641 M79.642 R94.5 R20.8 Office Visit 11/19/2015 9:10a [facility] Jamey Acharya, 01257 A04.7 Infectious Diseases M.D. M06.9 Office Visit 10/29/2015 9:10a [facility] Fanta Acharya, 72003 A04.7 Infectious Diseases M.D. R74.0 E66.9 Office Visit 10/22/2015 8:30a [facility] Jamey Acharya, 37436 A04.7 Infectious Diseases M.D. R10.84 Office Visit 12/18/2014 1:40p [facility] Of Hiro Yarbrough, 69928 715.17 C.Antonio Barnhart Plan of Care Future Appointment(s):03/21/2018 2:20 pm - Adam Mooney M.D. at [facility]05/05/2018 11:20 am - Adam Mooney M.D. at [facility]03/14/2018 - Krista Juárez M.D.M17.12 Unilateral primary osteoarthritis, left kneeFollow up:Follow up: Call Dr. Juárez's Image Archivist, Vanessa, to schedule surgery.M06.4 Inflammatory mrmnjowmqhclgwjF32.562 Pain in left kneeM25.462 Effusion, left knee
[2018-04-07] MEDS ORDERED: Propofol* 10 MG/ML 20 ML BTL ONE (12:43)
[2018-04-07] MEDS ORDERED: Famotidine IV* 10 MG/ML 2 ML (20 mg) ONE (12:58)
[2018-04-07] MEDS ORDERED: Dexamethasone IV* 4 MG/ML 1 ML (4 MG) ONE (12:58)
[2018-04-07] MEDS ORDERED: Clindamycin 900 MG/D5W BAG(*) 900 MG/50 ML BAG IVPB ONE (12:59)
[2018-04-07] MEDS ORDERED: Buffered Lidocaine 0.9% SYRIN* 5 ML/SYR SYRINGE ONE (12:59)
[2018-04-07] MEDS ORDERED: Tranexamic Acid 1,000 MG in NS 0.9% 50 ML IV ONE (13:00)
[2018-04-07] MEDS ORDERED: ROPIVACAINE 5 MG/ML 30 ML BTL (0.5%) ONE (13:47)
[2018-04-07] MEDS ORDERED: Lidocaine 1%* 5 ML VIAL ONE (13:47)
[2018-04-07] MEDS ORDERED: Bupivacaine 0.5% PF 10 ML VIAL INJ ONE (14:07)
[2018-04-07] MEDS ORDERED: Rocuronium* 10 MG/ML VIAL ONE (15:12)
[2018-04-07] MEDS ORDERED: HYDROmorphone INJ1* 1 MG/ML SYRINGE ONE ×2 (15:21→16:14)
[2018-04-07] MEDS ORDERED: Metoclopramide IV* 5 MG/ML 2 ML VIAL ONE (16:15)
[2018-04-07] MEDS ORDERED: oxyCODONE TAB* 5 MG TAB PO PRN ×2 (16:27→16:38)
[2018-04-07] MEDS ORDERED: Acetaminophen IV 1GM/100ML * 1,000 MG/100 ML VIAL IVPB ONE (16:27)
[2018-04-07] MEDS ORDERED: PROCHLORPERAZINE INJ 5 MG/ML 2 ML VIAL IV PRN (16:27)
[2018-04-07] MEDS ORDERED: fentaNYL* 50 MCG/ML 2 ML VIAL (100 MCG VIAL) IV PRN (16:27)
[2018-04-07] MEDS ORDERED: Naloxone* 0.4 MG/ML 1 ML VIAL IV PRN (16:27)
[2018-04-07] MEDS ORDERED: Ketorolac INJ* 30 MG/ML 1 ML VIAL IV PRN (16:27)
[2018-04-07] MEDS ORDERED: DiMENhydriNATE IV* 50 MG/ML VIAL IV PUSH PRN (16:27)
[2018-04-07] MEDS ORDERED: HYDROmorphone INJ1* 1 MG/ML SYRINGE IV PRN (16:27)
[2018-04-07] MEDS ORDERED: diPHENhydraMINE IV* 50 MG/ML 1 ml VIAL (BENADRYL) IV PRN (16:38)
[2018-04-07] MEDS ORDERED: Magnesium Hydroxide LIQ* 30 ML UDC PO PRN (16:38)
[2018-04-07] MEDS ORDERED: diPHENhydraMINE PO* 25 MG PO PRN (16:38)
[2018-04-07] MEDS ORDERED: Polyethylene Glycol 3350* 17 GM PACKET PO PRN (16:38)
[2018-04-07] MEDS ORDERED: Bisacodyl SUPP* 10 MG SUPP PR PRN (16:38)
[2018-04-07] MEDS ORDERED: Ondansetron INJ* 2 MG/ML VIAL IV PRN (16:38)
[2018-04-07] MEDS ORDERED: Cyclobenzaprine TAB* 10 MG PO PRN (16:38)
[2018-04-07] MEDS ORDERED: Morphine VIAL* 4 MG/ML VIAL (1 ml vial) IV PRN (16:38)
[2018-04-07] MEDS ORDERED: Enoxaparin(*) 40 MG/0.4 ML SYR SUBCUT SCH (17:00)
[2018-04-07] MEDS ORDERED: Ondansetron INJ* 2 MG/ML VIAL ONE (17:22)
[2018-04-07] MEDS ORDERED: Ketorolac INJ* 30 MG/ML 1 ML VIAL ONE (18:19)
[2018-04-07] MEDS ORDERED: Acetaminophen IV 1GM/100ML * 100 ML ONE (18:41)
[2018-04-07] MEDS ORDERED: Warfarin TAB(*) 6 MG PO ONE (21:00)
[2018-04-07] MEDS: oxyCODONE/Acetamin 5/325 MG* TAB PO PRN (21:30)
[2018-04-07] MEDS: ceFAZolin 1 GM in Dextrose (*) 1 GM/50 ML BAG IVPB SCH (22:05)
[2018-04-07] MEDS: Atorvastatin* 10 MG TAB PO SCH (22:06)
[2018-04-07] MEDS: Docusate CAP* 100 MG PO SCH (22:07)
[2018-04-07] MEDS: Magnesium Hydroxide LIQ* 30 ML UDC PO SCH (22:07)
[2018-04-07] MEDS: Acetaminophen TAB* 325 MG PO SCH (22:12)
--- NOTE | 2018-04-07 22:56 | PN ---
Progress Note - Progress Note Date of Service: 04/07/18 Note: BRIEF HOSPITALIST CONSULTATION: REASON FOR CONSULTATION: Irregular HR Requesting Provider: Dr. Schaefer HPI: Ms Paz is a 72 yo F who has a h/o fibromyalgia, HLD and obesity who underwent elective L TKR with Dr. Juárez earlier today. She states she is currently feeling well. She has a mild amount of pain but states it is manageable. She denies any CP, SOB or lightheadedness. She has no h/o cardiac disease. I was asked to see the patient for concerns of an irregular HR on exam. PMHx: Fibromyalgia, HLD, obesity, OA PSHx: tonsillectomy, lumbar diskectomy, hysterectomy, cholecystectomy, R toe surgery, L TKR All: Augmentin Meds: Current medications reviewed PE: Temp Pulse Resp BP Pulse Ox 97.9 F 109 12 155/78 100 04/07/18 21:19 04/07/18 21:19 04/07/18 21:30 04/07/18 21:19 04/07/18 21:19 general: awake, oriented, lying flat in bed, NAD cardiac: nl S1S2 RRR, II/ systolic murmur, no significant LE edema lungs: CTA anteriorly abdomen: BS+ soft, NT, ND extremities: L knee in NOLAN wrap with cryo unit in place Labs: none A/P: Ms Paz is a 72 yo morbidly obese female who underwent an elective L TKR today with Dr. Juárez who was having an irregular HR on exam. 1. Irregular HR: Pt on EKG was in mild sinus tachycardia without any acute ST-T wave abnormalities. On tele the patient was found to have occasional PACs with a compensatory pause. This is benign and requires no further work up or monitoring. However will obtain BMP and Mg tomorrow AM. 2. I will sign off. Please re-consult if any questions arise.
[2018-04-08] MEDS: oxyCODONE/Acetamin 5/325 MG* TAB PO PRN ×3 (00:54→16:04)
[2018-04-08] MEDS: Acetaminophen TAB* 325 MG PO SCH ×3 (03:57→19:25)
[2018-04-08] MEDS: ceFAZolin 1 GM in Dextrose (*) 1 GM/50 ML BAG IVPB SCH ×2 (04:42→13:40)
[2018-04-08 04:55] LABS: ABS Basophils 0.1 10^3/ul (0-0.2); ABS Eosinophils 0 10^3/ul (0-0.6); ABS Lymphocytes 0.9 10^3/ul (1.0-4.8); ABS Monocytes 0.7 10^3/ul (0-0.8); ABS Neutrophils 17.6 10^3/ul (1.5-7.7); ABS Nucleated RBC 0 10^3/ul; Eosinophil % 0 %; Hematocrit 38 % (35-47); Hemoglobin 12.7 g/dl (12.0-16.0); Lymphocyte % 4.9 %; Mean Corpuscular HGB Conc 34 g/dl (31-36); Mean Corpuscular Hemoglobin 31 pg (27-31); Mean Corpuscular Volume 92 fL (80-97); Mean Platelet Volume 8.5 fL (7.4-10.4); Nucleated Red Blood Cells % 0; Platelet Count 218 10^3/ul (150-450); Red Blood Count 4.06 10^6/ul (4.00-5.40); Red Cell Distribution Width 13 % (10.5-15); White Blood Count 19.3 10^3/ul (3.5-10.8)
[2018-04-08 05:05] LABS: INR 0.98 (0.77-1.02)
[2018-04-08 05:11] LABS: EGFR Non-African American 62.3 (>60)
[2018-04-08] MEDS: traMADol TAB* 50 MG PO PRN ×3 (06:03→19:24)
[2018-04-08] MEDS: Docusate CAP* 100 MG PO SCH ×2 (08:26→19:27)
[2018-04-08] MEDS: Magnesium Hydroxide LIQ* 30 ML UDC PO SCH ×2 (08:26→19:27)
[2018-04-08] MEDS: buPROPion SR TAB.SR* 150 MG PO SCH (08:26)
[2018-04-08] MEDS: Cholecalciferol TAB* 1000 UNITS PO SCH (08:26)
[2018-04-08] MEDS: Ascorbic Acid TAB* 500 MG PO SCH (08:27)
--- NOTE | 2018-04-08 09:58 | PN ---
Progress Note - Progress Note Date of Service: 04/08/18 SOAP: Subjective: []Patient seen OOB in chair with feet elevated. Dr. Hauser was consulted last pm secondary to irregular heart rate which was found to be a benign finding. Had an episode of lightheadedness and hypotension after getting up to walk with therapy this morning. Drinking fluids. She denies, SOB, chest pain, palpitations or nausea. Objective: [] Vital Signs Temp 97.4 F 04/08/18 07:31 Pulse 96 04/08/18 09:25 Resp 16 04/08/18 08:27 BP 153/61 04/08/18 09:25 Pulse Ox 91 04/08/18 09:25 Intake & Output 04/07/18 04/08/18 04/08/18 18:59 06:59 18:59 Intake Total 1700 2300 Output Total 550 650 Balance 1150 1650 Weight 243 lb Intake: IV Fluids 1700 1090 ABX - CEFAZOLIN 110 LR 1700 980 Oral 1210 Output: Jones 400 650 Estimated Blood Loss 150 Laboratory Results - last 24 hr 04/08/18 04/08/18 04/08/18 04:40 04:40 04:40 WBC 19.3 H RBC 4.06 Hgb 12.7 Hct 38 MCV 92 MCH 31 MCHC 34 RDW 13 Plt Count 218 MPV 8.5 Neut % (Auto) 90.9 Lymph % (Auto) 4.9 Rice % (Auto) 3.8 Eos % (Auto) 0 Baso % (Auto) 0.4 Absolute Neuts (auto) 17.6 H Absolute Lymphs (auto) 0.9 L Absolute Monos (auto) 0.7 Absolute Eos (auto) 0 Absolute Basos (auto) 0.1 Absolute Nucleated RBC 0 Nucleated RBC % 0 INR (Anticoag Therapy) 0.98 Sodium 136 Potassium 4.2 Chloride 102 Carbon Dioxide 27 Anion Gap 7 BUN 15 Creatinine 0.89 Est GFR ( Amer) 75.4 Est GFR (Non-Af Amer) 62.3 BUN/Creatinine Ratio 16.9 Glucose 159 H Calcium 9.0 Magnesium 1.9 Left knee dressings are dry and intact Calf Nt and soft +DF/PF left ankle sensation intact distally +DP pulse Assessment: []s/p left total knee arthroplasty POD #1 Hypotension Plan: []Monitor BP's today- medicine following, CXR ordered WBAT LLE when able to participate with therapy Coumadin with Lovenox bridge- 8 mg today
--- NOTE | 2018-04-08 11:38 | PN ---
Subjective Date of Service: 04/08/18 Interval History: Patient is feeling well today. Patient had an episodes this AM where she was walking to the bathroom and began to feel lightheaded, sweaty and felt like she was going to pass out. Patient denies CP or SOB. Patient has not had episodes like this before. Patient denies F/C, N/V, abdominal pain, diarrhea, patient is passing flatus. Patient denies dizziness at rest. Patient denies dysuria or recent illness. Patient denies cough or respiratory symptoms. Family History: Unchanged from Admission Social History: Unchanged from Admission Past Medical History: Unchanged from Admission Objective Active Medications: Acetaminophen (Tylenol Tab*) 975 mg PO Q8H [facility] Last Admin: 04/08/18 03:57 Dose: Not Given Ascorbic Acid (Vitamin C Tab*) [facility] [place] Last Admin: 04/08/18 08:27 Dose: 500 mg Atorvastatin Calcium (Lipitor*) 10 mg PO BEDTIME [facility]; Protocol Last Admin: 04/07/18 22:06 Dose: 10 mg Bisacodyl (Dulcolax Supp*) 10 mg UT DAILY PRN PRN Reason: constipation Bupropion HCl (Wellbutrin Sr Tab*) 150 [facility] [place] Last Admin: 04/08/18 08:26 Dose: 150 mg Cholecalciferol (Vitamin D Tab*) 3,000 units [facility] [place] Last Admin: 04/08/18 08:26 Dose: 3,000 units Cyclobenzaprine HCl (Flexeril Tab*) 10 mg PO TID PRN PRN Reason: SPASMS Diphenhydramine HCl (Benadryl Iv*) 25 mg IV Q6H PRN PRN Reason: itching Diphenhydramine HCl (Benadryl Po*) 25 mg PO Q6H PRN PRN Reason: INSOMNIA Docusate Sodium (Colace Cap*) 100 mg PO BID [facility] Last Admin: 04/08/18 08:26 Dose: 100 mg Enoxaparin Sodium (Lovenox(*)) 40 mg SUBCUT Q24H [facility] Cefazolin Sodium/Dextrose (Kefzol 1 Gm In Dextrose Duplex (*)) 1 gm in 50 mls @ 200 mls/hr IVPB Q8H [facility] Stop: 04/08/18 13:14 Last Admin: 04/08/18 04:42 Dose: 200 mls/hr Lactated Ringer's (Lactated Ringers 1000 Ml Bag*) 1,000 mls @ 100 mls/hr IV PER RATE [facility] Last Admin: 04/08/18 06:22 Dose: 100 mls/hr Lactulose (Lactulose*) 30 ml PO Q6H PRN PRN Reason: constipation Magnesium Hydroxide (Milk Of Magnesia Liq*) 30 ml PO BID [facility] Last Admin: 04/08/18 08:26 Dose: 30 ml Magnesium Hydroxide (Milk Of Magnesia Liq*) 30 ml PO Q6H PRN PRN Reason: constipation Morphine Sulfate (Morphine Vial*) 2 mg IV Q2H PRN PRN Reason: PAIN Ondansetron HCl (Zofran Inj*) 4 mg IV Q6H PRN PRN Reason: nausea Last Admin: 04/08/18 11:09 Dose: 4 mg Oxycodone HCl (Roxycodone Tab*) 10 mg PO Q4H PRN PRN Reason: moderate to severe pain Last Admin: 04/08/18 04:40 Dose: 10 mg Oxycodone/Acetaminophen (Percocet 5/325 Tab*) 1 tab PO Q3H PRN PRN Reason: PAIN - MODERATE Oxycodone/Acetaminophen (Percocet 5/325 Tab*) 2 tab PO Q3H PRN PRN Reason: PAIN - MODERATE Last Admin: 04/08/18 08:27 Dose: 2 tab Polyethylene Glycol/Electrolytes (Miralax*) 17 gm PO DAILY PRN PRN Reason: Constipation Tramadol HCl (Ultram*) 50 mg PO Q6H PRN PRN Reason: PAIN Last Admin: 04/08/18 06:03 Dose: 50 mg Warfarin Sodium (Coumadin Tab(*)) 8 mg PO ONCE@1700 ONE; Protocol Stop: 04/08/18 17:01 Vital Signs - 8 hr 04/08/18 04/08/18 04/08/18 03:48 04:40 06:03 Temperature Pulse Rate Respiratory 16 16 16 Rate Blood Pressure (mmHg) O2 Sat by Pulse Oximetry 04/08/18 04/08/18 04/08/18 07:31 07:45 08:00 Temperature 97.4 F Pulse Rate 94 Respiratory 16 16 16 Rate Blood Pressure 168/78 (mmHg) O2 Sat by Pulse 98 Oximetry 04/08/18 04/08/18 04/08/18 08:27 08:57 09:25 Temperature Pulse Rate 98 96 Respiratory 16 Rate Blood Pressure 75/36 153/61 (mmHg) O2 Sat by Pulse 91 Oximetry 04/08/18 04/08/18 10:56 11:09 Temperature Pulse Rate 96 Respiratory 16 Rate Blood Pressure 146/64 (mmHg) O2 Sat by Pulse 98 Oximetry Oxygen Devices in Use Now: None Appearance: Patient is a 72yo female who appears stated age and is sitting in the bed in NAD. Eyes: No Scleral Icterus, PERRLA Ears/Nose/Mouth/Throat: NL Teeth, Lips, Gums, Clear Oropharnyx, Mucous Membranes Moist Neck: NL Appearance and Movements; NL JVP, Trachea Midline Respiratory: Symmetrical Chest Expansion and Respiratory Effort, - - Slight rales in RLL subsiding with deep breathing. Cardiovascular: NL Sounds; No Murmurs; No JVD, RRR, No Edema Abdominal: NL Sounds; No Tenderness; No Distention, No Hepatosplenomegaly Lymphatic: No Cervical Adenopathy Extremities: No Clubbing, Cyanosis, - - Left Knee covered with bulky dressing. Skin: No Nodules or Sclerosis Neurological: Alert and Oriented x 3, NL Sensation, NL Muscle Strength and Tone , - - CN II-XII intact. Result Diagrams: 04/08/18 04:40 04/08/18 04:40 Assess/Plan/Problems-Billing Assessment: Patient is a 72yo female with a PMH for HLD and Fibromyalgia who is admitted for a LTKA and had an episode of orthostatic presyncope and an elevated WBC count who has no signs of infection and is generally stable. - Patient Problems (1) Post-operative state Current Visit: Yes Status: Acute Code(s): Z98.890 - OTHER SPECIFIED POSTPROCEDURAL STATES SNOMED Code(s): 17396613 Comment: - Management per Ortho - PT/OT, Pain control, Bowel Regimen (2) Pre-syncope Current Visit: Yes Status: Acute Comment: - Patient's presyncope with low BP likely vasovagal, due to pain meds, pain and fluid shifts from surgery - Continue fluids, Patient instructed to be careful when standing - Not likely related to infection - No arrythmia on Telemetry. Having PACs with compensatory pauses with no prolonged pauses. (3) Leukocytosis Current Visit: Yes Status: Acute Code(s): D72.829 - ELEVATED WHITE BLOOD CELL COUNT, UNSPECIFIED SNOMED Code(s): 987542675 Comment: - WBC count 19K - Meets sepsis criteria with Leukocytosis, intermittent tachycardia and single episode of hypotension - No obvious sign of infection, UA, BC and CXR pending - Likely reactive change - Continue fluids. (4) HLD (hyperlipidemia) Current Visit: Yes Status: Acute Code(s): E78.5 - HYPERLIPIDEMIA, UNSPECIFIED SNOMED Code(s): 23434271 Comment: - Continue Lipitor (5) DVT prophylaxis Current Visit: Yes Status: Acute Code(s): SPH3682 - SNOMED Code(s): 302084409 Comment: - Lovenox to Warfarin per Ortho Status and Disposition: Inpatient, Disposition per ortho
[2018-04-08] MEDS: Enoxaparin(*) 40 MG/0.4 ML SYR SUBCUT SCH (11:53)
[2018-04-08 13:38] LABS: Urine Appearance Clear; Urine Blood Negative (Negative); Urine Color Straw; Urine Ketones Negative (Negative); Urine Protein Negative (Negative); Urine Red Blood Cell Absent (Absent); Urine Specific Gravity 1.006 (1.010-1.030); Urine Urobilinogen Negative (Negative); Urine White Blood Cell Trace(0-5/hpf) (Absent)
[2018-04-08] MEDS ORDERED: Warfarin TAB(*) 4 MG PO ONE (17:00)
[2018-04-08] MEDS: Atorvastatin* 10 MG TAB PO SCH (19:25)
[2018-04-09] MEDS: traMADol TAB* 50 MG PO PRN ×2 (02:53→15:42)
[2018-04-09] MEDS: Acetaminophen TAB* 325 MG PO SCH ×3 (05:25→20:30)
[2018-04-09 05:43] LABS: ABS Basophils 0 10^3/ul (0-0.2); ABS Eosinophils 0 10^3/ul (0-0.6); ABS Lymphocytes 1.1 10^3/ul (1.0-4.8); ABS Monocytes 1.1 10^3/ul (0-0.8); ABS Neutrophils 10.6 10^3/ul (1.5-7.7); ABS Nucleated RBC 0 10^3/ul; Eosinophil % 0 %; Hematocrit 36 % (35-47); Hemoglobin 12.4 g/dl (12.0-16.0); Lymphocyte % 8.9 %; Mean Corpuscular HGB Conc 35 g/dl (31-36); Mean Corpuscular Hemoglobin 32 pg (27-31); Mean Corpuscular Volume 93 fL (80-97); Mean Platelet Volume 8.6 fL (7.4-10.4); Nucleated Red Blood Cells % 0.1; Platelet Count 200 10^3/ul (150-450); Red Blood Count 3.88 10^6/ul (4.00-5.40); Red Cell Distribution Width 13 % (10.5-15); White Blood Count 12.9 10^3/ul (3.5-10.8)
[2018-04-09 05:53] LABS: INR 1.17 (0.77-1.02)
--- NOTE | 2018-04-09 06:33 | OP ---
OPERATIVE REPORT: DATE OF OPERATION: 04/07/18 DATE OF : 45 SURGEON: Krista Juárez MD DISTRIBUTION A CLASS LINEMAN: ADRIEL Sofia Ms. did help throughout the procedure with preparation of the leg, wound retraction, manipul ation of the knee, and wound closure. ANESTHESIOLOGIST: Dr. Lopez ANESTHESIA: Spinal. PRE-OP DIAGNOSIS: Severe end-stage degenerative osteoarthritis of the left knee joint. POST-OP DIAGNOSIS: Severe end-stage degenerative osteoarthritis of the left knee joint. OPERATIVE PROCEDURE: Left total knee arthroplasty. TOURNIQUET TIME: 52 minutes. COMPLICATIONS: None. SPECIMEN: Bone and cartilage from the left knee joint. ESTIMATED BLOOD LOSS: 200 cc. HARDWARE USED: This is cemented [employer] total knee arthroplasty hardware. Two packages of S implex bone cement. For the femur, a size 5 narrow left posterior stabilized Legion narrow Oxinium f emoral component. For the tibia, a size 3, left Genny II tibial blase plate. For the insert, a 9- mm posterior stabilized articular insert, size 3-4 and for the patella, a 32-mm 3 peg all poly patell a. BRIEF HISTORY/INDICATIONS: Ms. Paz is a 72-year-old female with years of increasingly severe left knee pain. Radiographs showed severe end-stage arthritis with wxql-xm-ctan contact. She failed cons ervative treatment with antiinflammatories, pain medication, intraarticular injections, and physical therapy. Due to continued pain and decreased quality of life, she elected to undergo left total knee arthroplasty. Informed consent was obtained from the patient. She understood the risks of the surg shelby included, but were not limited to bleeding, infection, damage to nearby structures, continued mario n, need for further surgery, intraoperative fracture, nerve palsy, hardware failure or loosening, kne e stiffness, loss of motion, stroke, heart attack, blood clot, and . She wished to proceed. INTRAOPERATIVE FINDINGS: Intraoperatively, the patient was noted to have severe end-stage arthritis of the left knee with complete loss of cartilage in the medial and patellofemoral compartments. She had significant osteopenia noted. DESCRIPTION OF PROCEDURE: Ms. Paz was identified in the preanesthesia unit. Her left lower extrem ity was marked as the correct operative side. Informed consent was signed and placed in the chart. The patient was taken to the operating room and placed under spinal anesthesia. A Jones catheter was placed. Tourniquet was placed on the left thigh. Left lower extremity was prepped and draped in th e usual sterile fashion. Preop time-out was made to correctly identify the patient's side and site. Appropriate perioperative antibiotics were given within 1 hour of incision. Tourniquet was inflated until tourniquet time for this procedure was 52 minutes. A midline incision was made with a 10 blade and carried down to the extensor mechanism. A new 10 blade was used to make a standard medial parapatellar arthrotomy. Patella was subluxed laterally. Electrocautery was used to subperiosteally elevate soft tissue off the superomedial tibia to the mid sagittal plane. All osteophytes along the tibia were carefully removed. The knee was flexed up. The anterior horn of the lateral meniscus and ACL were sharply released. A drill was used to enter the distal femur. In tramedullary distal femoral cutting guide was pinned on the distal femur. Oscillating saw was used t o make the distal femoral cut. Next, the external rotation guide was pinned on the distal femur and distal femur was sized to a size 5. A size 5 multi-cutting jig was pinned on the distal femur. Osci llating saw was used to make the appropriate 4 chamfer cuts. The ACL was completely released. Extramedullary tibial cutting guide was pinned on the proximal tibi a. The oscillating saw was used to make the proximal tibial cut, perpendicular to the mechanical axi s of the tibia. The bone was carefully removed. The knee was brought out into full extension. There was good medial and lateral ligaments balancing. Flexion and extension gaps were well balanced. Th e knee was flexed up. Lamina senior nuclear medicine technologist was placed both medially and laterally. Any remaining meniscu s was carefully removed using electrocautery. Curved osteotome was used to remove any posterior oste ophytes. Tibial tray and drop foster were placed. This confirmed a satisfactory tibial cut. A narrow left size 5 left femoral trial was impacted onto the distal femur and had excellent fit and stability. The box for the posterior stabilized implant was prepared using a reamer and box cut oste otome. A size 3 tibial tray trial and a 9- mm insert trial were placed and the knee was taken throug h a range of motion. The knee had full extension to 130 degrees of flexion. There was satisfactory patellofemoral tracking. The patella was everted and 9 mm of patellar bone and cartilage were carefu lly removed using an oscillating saw. The patella was sized to a size 32. Three peg holes were dril led through the size 32 guide. A 32 trial patella was placed and the knee was taken through a range of motion. There was satisfactory patellofemoral tracking. All trials were carefully removed. The tibia was subluxed anteriorly and sized to a size 3. Proxima l tibia was prepared using a size 3 keel punch. All bony cut surfaces were copiously irrigated with sterile saline and dried. Final implants were cemented into place starting with the tibia, followed by the femur and last the patella. A 9-mm insert trial was placed and the knee was brought out into full extension. The tourniquet was turned down at 52 minutes. The knee was copiously irrigated with sterile saline. Electrocautery was used to obtain meticulous hemostasis. Once the cement had fully cured, the insert trial was removed. Any excess cement was removed from ar ound the capsule and hardware. Final insert chosen was a 9-mm posterior stabilized articular insert size 3-4. This was locked into position on the tibial tray. Stability of the insert was checked and rechecked and noted to be stable. The knee was once again copiously irrigated with sterile saline. The extensor mechanism was closed using interrupted #1 Vicryls. The rest of the incision was closed in a layered fashion using 0 and 2-0 Vicryls. Skin was closed using running 3-0 nylon suture. Steri le Xeroform, 4x4s, and Webril were used to cover the incision. Steven wrap and cold pack were placed ov er this. The patient's anesthesia was reversed without difficulty. She was taken to the PACU in stab le condition. Intended weightbearing will be weightbearing as tolerated. Intended DVT prophylaxis w ill be Coumadin with a Lovenox bridge. [id number]/[facility] #: [id number]
[2018-04-09] MEDS: buPROPion SR TAB.SR* 150 MG PO SCH (08:32)
[2018-04-09] MEDS: Ascorbic Acid TAB* 500 MG PO SCH (08:32)
[2018-04-09] MEDS: Cholecalciferol TAB* 1000 UNITS PO SCH (08:32)
[2018-04-09] MEDS: Magnesium Hydroxide LIQ* 30 ML UDC PO SCH ×2 (08:33→21:59)
[2018-04-09] MEDS: Docusate CAP* 100 MG PO SCH ×2 (08:33→21:59)
--- NOTE | 2018-04-09 10:54 | PN ---
Progress Note - Progress Note Date of Service: 04/09/18 SOAP: Subjective: Pt is doing well. Pain is controlled. Pt going well. Some cont fatigue but feeling improved. Patient reports diarrhea. Denies CP/SOB, F/C. Objective: PE 72 y/o WDWN F NAD, A&Ox3 LLE- dressing changed inc c/d/i, no sign of infection, calf soft NT, +DF/PF ankle, NVI Vital Signs Temp Pulse Resp BP Pulse Ox 98.7 F 98 18 154/68 97 04/09/18 07:34 04/09/18 07:34 04/09/18 08:00 04/09/18 07:34 04/09/18 08:00 Laboratory Results - last 24 hr 04/08/18 04/09/18 04/09/18 12:35 05:20 05:20 WBC 12.9 H RBC 3.88 L Hgb 12.4 Hct 36 MCV 93 MCH 32 H MCHC 35 RDW 13 Plt Count 200 MPV 8.6 Neut % (Auto) 82.3 Lymph % (Auto) 8.9 [place] % (Auto) 8.5 Eos % (Auto) 0 Baso % (Auto) 0.3 Absolute Neuts (auto) 10.6 H Absolute Lymphs (auto) 1.1 Absolute Monos (auto) 1.1 H Absolute Eos (auto) 0 Absolute Basos (auto) 0 Absolute Nucleated RBC 0 Nucleated RBC % 0.1 INR (Anticoag Therapy) 1.17 H Urine Color Straw Urine Appearance Clear Urine pH 6.0 Ur Specific [place] 1.006 L Urine Protein Negative Urine Ketones Negative Urine Blood Negative Urine Nitrate Negative Urine Bilirubin Negative Urine Urobilinogen Negative Ur Leukocyte Esterase Trace A Urine WBC (Auto) Trace(0-5/hpf) Urine RBC (Auto) Absent Ur Squamous Epith Cells Present A Urine Bacteria Absent Urine Glucose Negative Studies: CXR neg, UA neg Assessment: []s/p left total knee arthroplasty POD #2 Hypotension Plan: []BP and labs improved, neg cxr and UA- likely reactive change yesterday Cont to monitor BP WBAT LLE- PT/OT today Coumadin with Lovenox bridge- 8 mg today Likely DC to home tomorrow
[2018-04-09] MEDS: Enoxaparin(*) 40 MG/0.4 ML SYR SUBCUT SCH (12:37)
--- NOTE | 2018-04-09 14:32 | PN ---
Subjective Date of Service: 04/09/18 Interval History: Patient is feeling well today. Pain under control. Is having loose BMs but denies F/C, N/V, CP, SOB, abdominal pain, dysuria, dizziness on standing. Family History: Unchanged from Admission Social History: Unchanged from Admission Past Medical History: Unchanged from Admission Objective Active Medications: Acetaminophen (Tylenol Tab*) 975 mg PO Q8H [facility] Last Admin: 04/09/18 12:38 Dose: 975 mg Ascorbic Acid (Vitamin C Tab*) 500 mg PO QAM [facility] Last Admin: 04/09/18 08:32 Dose: 500 mg Atorvastatin Calcium (Lipitor*) 10 mg PO BEDTIME [facility]; Protocol Last Admin: 04/08/18 19:25 Dose: 10 mg Bisacodyl (Dulcolax Supp*) 10 mg [place] DAILY PRN PRN Reason: constipation Bupropion HCl (Wellbutrin Sr Tab*) 150 mg PO QAM [facility] Last Admin: 04/09/18 08:32 Dose: 150 mg Cholecalciferol (Vitamin D Tab*) [facility] Admin: 04/09/18 08:32 Dose: 3,000 units Cyclobenzaprine HCl (Flexeril Tab*) 10 mg PO TID PRN PRN Reason: SPASMS Last Admin: 04/09/18 02:53 Dose: 10 mg Diphenhydramine HCl (Benadryl Iv*) 25 mg IV Q6H PRN PRN Reason: itching Diphenhydramine HCl (Benadryl Po*) 25 mg PO Q6H PRN PRN Reason: INSOMNIA Docusate Sodium (Colace Cap*) 100 mg PO BID [facility] Last Admin: 04/09/18 08:33 Dose: Not Given Enoxaparin Sodium (Lovenox(*)) 40 mg SUBCUT Q24H [facility] Last Admin: 04/09/18 12:37 Dose: 40 mg Lactated Ringer's (Lactated Ringers 1000 Ml Bag*) 1,000 mls @ 100 mls/hr IV PER RATE [facility] Last Admin: 04/08/18 06:22 Dose: 100 mls/hr Lactulose (Lactulose*) 30 ml PO Q6H PRN PRN Reason: constipation Magnesium Hydroxide (Milk Of Magnesia Liq*) 30 ml PO BID MIRIAM Last Admin: 04/09/18 08:33 Dose: Not Given Magnesium Hydroxide (Milk Of Magnesia Liq*) 30 ml PO Q6H PRN PRN Reason: constipation Morphine Sulfate (Morphine Vial*) 2 mg IV Q2H PRN PRN Reason: PAIN Ondansetron HCl (Zofran Inj*) 4 mg IV Q6H PRN PRN Reason: nausea Last Admin: 04/08/18 11:09 Dose: 4 mg Oxycodone HCl (Roxycodone Tab*) 10 mg PO Q4H PRN PRN Reason: moderate to severe pain Last Admin: 04/08/18 04:40 Dose: 10 mg Oxycodone/Acetaminophen (Percocet 5/325 Tab*) 1 tab PO Q3H PRN PRN Reason: PAIN - MODERATE Last Admin: 04/08/18 16:04 Dose: 1 tab Oxycodone/Acetaminophen (Percocet 5/325 Tab*) 2 tab PO Q3H PRN PRN Reason: PAIN - MODERATE Last Admin: 04/08/18 08:27 Dose: 2 tab Polyethylene Glycol/Electrolytes (Miralax*) 17 gm PO DAILY PRN PRN Reason: Constipation Tramadol HCl (Ultram*) 50 mg PO Q6H PRN PRN Reason: PAIN Last Admin: 04/09/18 02:53 Dose: 50 mg Warfarin Sodium (Coumadin Tab(*)) 8 mg PO ONCE@1700 ONE; Protocol Stop: 04/09/18 17:01 Vital Signs - 8 hr 04/09/18 04/09/18 04/09/18 07:34 08:00 11:54 Temperature 98.7 F 98.0 F Pulse Rate 98 93 Respiratory 16 16 18 Rate Blood Pressure 154/68 145/76 (mmHg) O2 Sat by Pulse 97 97 98 Oximetry Oxygen Devices in Use Now: None Appearance: Patient is a 72yo who appears stated age and is sitting in the bed in NAD. Eyes: No Scleral Icterus, PERRLA Ears/Nose/Mouth/Throat: NL Teeth, Lips, Gums, Clear Oropharnyx, Mucous Membranes Moist Neck: NL Appearance and Movements; NL JVP, Trachea Midline Respiratory: Symmetrical Chest Expansion and Respiratory Effort, Clear to Auscultation Cardiovascular: NL Sounds; No Murmurs; No JVD, RRR, No Edema Abdominal: NL Sounds; No Tenderness; No Distention, No Hepatosplenomegaly Lymphatic: No Cervical Adenopathy Extremities: No Clubbing, Cyanosis Skin: No Nodules or Sclerosis, - - Left knee incision covered with bulky dressing. Neurological: Alert and Oriented x 3, NL Sensation, NL Muscle Strength and Tone , - - CN II-XII intact. Result Diagrams: 04/09/18 05:20 04/08/18 04:40 Microbiology and Other Data: Microbiology 04/08/18 12:35 Urine Culture - Final Urine No Growth (<1,000 CFU/mL) 04/08/18 10:43 Aerobic Blood Culture - Preliminary Blood Venous No Growth Day 1 Anaerobic Blood Culture - Preliminary No Growth Day 1 Assess/Plan/Problems-Billing Assessment: Patient is a 72yo female with a PMH for HLD and Fibromyalgia who is admitted for a LTKA and had an episode of orthostatic presyncope and an elevated WBC count who has no signs of infection and is generally stable. - Patient Problems (1) Post-operative state Current Visit: Yes Status: Acute Code(s): Z98.890 - OTHER SPECIFIED POSTPROCEDURAL STATES SNOMED Code(s): 44039770 Comment: - Management per Ortho - PT/OT, Pain control, Bowel Regimen (2) Pre-syncope Current Visit: Yes Status: Acute Comment: - Patient's presyncope with low BP likely vasovagal, due to pain meds, pain and fluid shifts from surgery - Continue fluids, Patient instructed to be careful when standing - Not likely related to infection - No arrythmia on Telemetry. Having PACs with compensatory pauses with no prolonged pauses. - No further issues with standing. (3) Leukocytosis Current Visit: Yes Status: Acute Code(s): D72.829 - ELEVATED WHITE BLOOD CELL COUNT, UNSPECIFIED SNOMED Code(s): 286700144 Comment: - WBC count 19K initally and down to 12K - Met sepsis criteria with Leukocytosis, intermittent tachycardia and single episode of hypotension - No obvious sign of infection, UA, BC and CXR negative - Likely reactive change - Continue fluids per post-operative protocol. (4) HLD (hyperlipidemia) Current Visit: Yes Status: Acute Code(s): E78.5 - HYPERLIPIDEMIA, UNSPECIFIED SNOMED Code(s): 95126032 Comment: - Continue Lipitor (5) DVT prophylaxis Current Visit: Yes Status: Acute Code(s): SML6249 - SNOMED Code(s): 230092024 Comment: - Lovenox to Warfarin per Ortho Status and Disposition: Inpatient, Disposition per ortho. We will sign off at this time, please feel free to call with any questions.
[2018-04-09] MEDS ORDERED: Warfarin TAB(*) 4 MG PO ONE (17:00)
[2018-04-09] MEDS: oxyCODONE/Acetamin 5/325 MG* TAB PO PRN (19:07)
[2018-04-09] MEDS: Atorvastatin* 10 MG TAB PO SCH (22:00)
[2018-04-10] MEDS: traMADol TAB* 50 MG PO PRN ×2 (03:48→21:00)
[2018-04-10] MEDS: Acetaminophen TAB* 325 MG PO SCH ×3 (03:50→21:01)
[2018-04-10 05:56] LABS: ABS Basophils 0 10^3/ul (0-0.2); ABS Eosinophils 0.1 10^3/ul (0-0.6); ABS Lymphocytes 1.2 10^3/ul (1.0-4.8); ABS Monocytes 0.9 10^3/ul (0-0.8); ABS Nucleated RBC 0 10^3/ul; Hematocrit 36 % (35-47); Hemoglobin 12.1 g/dl (12.0-16.0); Mean Corpuscular HGB Conc 34 g/dl (31-36); Mean Corpuscular Hemoglobin 32 pg (27-31); Mean Corpuscular Volume 94 fL (80-97); Mean Platelet Volume 8.5 fL (7.4-10.4); Nucleated Red Blood Cells % 0; Platelet Count 198 10^3/ul (150-450); Red Blood Count 3.82 10^6/ul (4.00-5.40); Red Cell Distribution Width 13 % (10.5-15); White Blood Count 10.2 10^3/ul (3.5-10.8)
[2018-04-10 06:04] LABS: INR 1.32 (0.77-1.02)
--- NOTE | 2018-04-10 09:10 | PN ---
Progress Note - Progress Note Date of Service: 04/10/18 SOAP: Subjective: Pt is doing well. pain controlled. Denies dizziness or lightheadedness. Improved diarrhea. Denies CP/SOB, F/C or calf pain Objective: 72 y/o WDWN F NAD, A&Ox3 LLE- drressing changed, inc c/d/i, no sign of infection, calf soft NT, +DF/PF ankle, NVI Vital Signs Temp Pulse Resp BP Pulse Ox 98.7 F 95 20 155/80 95 04/10/18 03:28 04/10/18 03:28 04/10/18 03:48 04/10/18 03:28 04/10/18 03:28 Laboratory Results - last 24 hr 04/10/18 04/10/18 05:11 05:11 WBC 10.2 RBC 3.82 L Hgb 12.1 Hct 36 MCV 94 MCH 32 H MCHC 34 RDW 13 Plt Count 198 MPV 8.5 Neut % (Auto) 77.9 Lymph % (Auto) 12.0 [place] % (Auto) 8.7 Eos % (Auto) 1.0 Baso % (Auto) 0.4 Absolute Neuts (auto) 8.0 H Absolute Lymphs (auto) 1.2 Absolute Monos (auto) 0.9 H Absolute Eos (auto) 0.1 Absolute Basos (auto) 0 Absolute Nucleated RBC 0 Nucleated RBC % 0 INR (Anticoag Therapy) 1.32 H Assessment: POD 3 S/P left TKA Plan: WBAT cont PT/OT flexaril, tramadol and percocet for pain eliquis for dvt prophylaxis DC to home today with VNS F/U 10-14 days [address] op with Dr[address] Juárez
[2018-04-10] MEDS: Cholecalciferol TAB* 1000 UNITS PO SCH (09:35)
[2018-04-10] MEDS: Ascorbic Acid TAB* 500 MG PO SCH (09:36)
[2018-04-10] MEDS: Docusate CAP* 100 MG PO SCH ×2 (09:36→21:02)
[2018-04-10] MEDS: Magnesium Hydroxide LIQ* 30 ML UDC PO SCH ×2 (09:36→21:02)
[2018-04-10] MEDS: oxyCODONE/Acetamin 5/325 MG* TAB PO PRN (09:37)
[2018-04-10] MEDS: buPROPion SR TAB.SR* 150 MG PO SCH (09:50)
[2018-04-10] MEDS: Enoxaparin(*) 40 MG/0.4 ML SYR SUBCUT SCH (14:17)
[2018-04-10] MEDS: Atorvastatin* 10 MG TAB PO SCH (21:01)
[2018-04-11] MEDS: Acetaminophen TAB* 325 MG PO SCH ×2 (05:08→12:26)
[2018-04-11] MEDS: traMADol TAB* 50 MG PO PRN ×2 (05:08→12:29)
[2018-04-11 06:01] LABS: ABS Basophils 0.1 10^3/ul (0-0.2); ABS Eosinophils 0.3 10^3/ul (0-0.6); ABS Lymphocytes 1.6 10^3/ul (1.0-4.8); ABS Monocytes 0.7 10^3/ul (0-0.8); ABS Neutrophils 5.9 10^3/ul (1.5-7.7); ABS Nucleated RBC 0 10^3/ul; Hematocrit 33 % (35-47); Hemoglobin 11.5 g/dl (12.0-16.0); Lymphocyte % 18.7 %; Mean Corpuscular HGB Conc 35 g/dl (31-36); Mean Corpuscular Hemoglobin 32 pg (27-31); Mean Corpuscular Volume 93 fL (80-97); Mean Platelet Volume 8.6 fL (7.4-10.4); Nucleated Red Blood Cells % 0; Platelet Count 189 10^3/ul (150-450); Red Blood Count 3.55 10^6/ul (4.00-5.40); Red Cell Distribution Width 13 % (10.5-15); White Blood Count 8.6 10^3/ul (3.5-10.8)
[2018-04-11 06:02] LABS: INR 1.23 (0.77-1.02)
[2018-04-11] MEDS: Cholecalciferol TAB* 1000 UNITS PO SCH (08:07)
[2018-04-11] MEDS: buPROPion SR TAB.SR* 150 MG PO SCH (08:07)
[2018-04-11] MEDS: Ascorbic Acid TAB* 500 MG PO SCH (08:07)
[2018-04-11] MEDS: Docusate CAP* 100 MG PO SCH (08:08)
[2018-04-11] MEDS: Magnesium Hydroxide LIQ* 30 ML UDC PO SCH (08:08)
[2018-04-11] MEDS: oxyCODONE/Acetamin 5/325 MG* TAB PO PRN (09:58)
[2018-04-11 11:48] VITALS: BP 160/70
[2018-04-11] MEDS: Enoxaparin(*) 40 MG/0.4 ML SYR SUBCUT SCH (12:30)
--- NOTE | 2018-04-12 09:59 | DS ---
AMENDED REPORT NOW INCLUDES DESIGNATED COSIGNER DISCHARGE SUMMARY: DATE OF ADMISSION: 04/07/18 DATE OF DISCHARGE: 04/11/18 ATTENDING PHYSICIAN: Krista Juárez MD * (DICTATED BY ADRIEL BARTLETT) ADMISSION DIAGNOSIS: Severe end-stage degenerative osteoarthritis of the left knee joint. DISCHARGE DIAGNOSIS: Severe end-stage degenerative osteoarthritis of the left knee joint. SURGERY PERFORMED: Left total knee arthroplasty. HOSPITAL COURSE: The patient is a 72-year-old female with years of increasingly severe left knee pain. Her x-rays revealed severe end-stage osteoarthritis with iokd-oz-zped contact. She failed conservative management with antiinflammatories, pain medication, intraarticular injections, and physical therapy. Due to her continued pain and decreased quality of life, she elected to proceed with left total knee arthroplasty. She was taken to the operating room under the care of Dr. Krista Juárez on the date of 04/07/18. She tolerated the procedure well and left the operating room in stable condition. The night of her procedure, it was noted that an irregular heartbeat was found on examination, therefore medical consultation was obtained. Dr. Hauser did have a chest x-ray done and EKG. Chest x-ray negative. EKG revealed mild sinus tachycardia without any ST-wave abnormalities, PACs with compensatory pause, therefore no medical direction was needed at that point per her recommendations. The patient did have an episode of lightheadedness/dizziness on postoperative day #1. Further workup was done including UA, blood cultures, chest x-ray, which failed to show any positive results. It was felt that she had a vasovagal episode. She had no further problems with lightheadedness, dizziness. She had no shortness of breath, no chest pain, no palpitations and did progress with her PT and OT goals. It was felt she was medically and orthopedically stable for discharge to home today, 04/11/18. CONDITION ON DISCHARGE: Temperature 97.9, pulse 79, respiratory rate 16, O2 sats 98% on room air, blood pressure 160/70. Her left knee incision is healing well without evidence of infection. There is no drainage. There is no calf tenderness. She has active dorsiflexion of her left ankle without pain. PLAN: Discharge to home. She will continue to bear weight as tolerated in the left lower extremity and continue with her physical therapy exercises at outpatient PT. Her medications have been sent to her pharmacy, [facility]. Percocet 5/325, tramadol 50 mg, Flexeril, and Eliquis 2.5 mg p.o. b.i.d. have been already sent to her pharmacy this past weekend. She will follow up with Dr. Juárez in the office in roughly 10 to 14 days. All questions were answered. ADRIEL BARTLETT [id number]/[facility] #: [id number] JEFFY
== END 2018-04-11 13:20 | disposition home health service (06) | DRG 470 ==
LOC: AA 12:35 → SSU 19:36
PROVIDERS: ADMIT Orthopaedic Surgery Adult Reconstructive Orthopaedic Surgery; ATTEND Orthopaedic Surgery Adult Reconstructive Orthopaedic Surgery
PROC: 0SRD069 Replacement of Left Knee Joint with Oxidized Zirconium on Polyethylene Synthetic Substitute, Cemented, Open Approach (ICD-10-PCS; principal; 2018-04-07 15:00)
DX: M17.12 Unilateral primary osteoarthritis, left knee (principal); Z68.41 Body mass index [BMI] 40.0-44.9, adult; D62 Acute posthemorrhagic anemia; M79.7 Fibromyalgia; M25.462 Effusion, left knee; K21.9 Gastro-esophageal reflux disease without esophagitis; F41.9 Anxiety disorder, unspecified; F32.9 Major depressive disorder, single episode, unspecified; E78.5 Hyperlipidemia, unspecified; E66.01 Morbid (severe) obesity due to excess calories; R00.0 Tachycardia, unspecified; M85.862 Other specified disorders of bone density and structure, left lower leg; M25.762 Osteophyte, left knee; R19.7 Diarrhea, unspecified; R55 Syncope and collapse; I49.1 Atrial premature depolarization; D72.829 Elevated white blood cell count, unspecified; I95.81 Postprocedural hypotension; T50.995A Adverse effect of other drugs, medicaments and biological substances, initial encounter; Y92.239 Unspecified place in hospital as the place of occurrence of the external cause; Z90.49 Acquired absence of other specified parts of digestive tract; Z88.0 Allergy status to penicillin; Z80.9 Family history of malignant neoplasm, unspecified; Z82.61 Family history of arthritis; Z72.89 Other problems related to lifestyle; Z87.891 Personal history of nicotine dependence
CPT/HCPCS: 36415; 71046; 80048; 81003; 81015; 83735; 84520; 85025; 85610; 87040; 87086; 88305; 88311; 93005; A9270-GY; C1776; G8978-GP-CK; G8979-GP-CI; G8987-GO-CK; G8988-GO-CI; J0690; J1100; J1170; J1650; J1885; J2250; J2405; J2704; J2765; J2795; J3010

== ENCOUNTER 2018-04-28 15:51 | Emergency (ER) | payer MEDICARE, BC ==
--- OUTSIDE RECORDS SUMMARY | 2018-04-28 16:31 | XMS REPORT | Continuity of Care Document ---
:1945 External Reference #:[id number] Author Name Livia Reed Care Team Providers Name Role Phone Vikram Rueda MD Primary Care Physician Unavailable Payers Type Date Identification Numbers Payment Provider Subscriber Effective: 2010 Policy Number: [id number] Medicare Gladis Del Castillo PayID: [id number] [address] [place] [address] Effective: 2014 Policy Number: [id number] [facility] Gladis Del Castillo PayID: [id number] [address] [place] [address] Onset: 1991 Policy Number: [id number] Special Funds Gladis Del Castillo Group Number: [id number] [place] [address] Advance Directives Description No Information Available Problems [...] Use Denies Drug Use Smoking Status Reviewed: 04/22/18 Patient is a former quit 3 years ago smoker and was a light smoker Exercise Type/Frequency Exercises sporadically Allergies, Adverse Reactions, Alerts Date Description Reaction Status Severity Comments 12/12/2015 Augmentin c.diff Active 12/18/2014 NKDA Inactive Medications Medication Date Status Form Strength Qnty SIG Indications Ordering Provider Percocet 04/10/ Active Tablets 5-325mg 70tab 1-2 tabs Krista 2017 s by mouth Franck, every 4-6 M.D. hours as needed pain Tramadol HCL 04/10/ Active Tablets 50mg 28tab 1 tablet Krista 2017 s by mouth Franck, every 4-6 M.D. hours as needed post op pain. alternate with perocet as needed Cyclobenzaprine 04/10/ Active Tablets 10mg 30tab take 1 tab Krista HCL 2017 s three Franck, times a M.D. day as needed for pain/muscl e spasms Eliquis 04/10/ Active Tablets 2.5mg 60tab take 1 tab Krista 2017 s every 12 Franck, hours x 4 M.D. weeks Celebrex / Active Capsules 200mg 1 by mouth Unknown 0000 every day Glucosamine / Active Capsules 1500Com 1 by mouth Unknown Chondroitin 1500 0000 every day Complex Vitamin D / Active Capsules 3000mg 1 by mouth Unknown 0000 every day Vitamin C / Active Chewtabs 500mg 1 by mouth Unknown 0000 every day Bupropion HCL ER / Active Tablets ER 150mg 1 by mouth Unknown (SR) 0000 12HR qd Cinnamon / Active Capsules 1000mg 1 by mouth Unknown 0000 every day Rosuvastatin 00/ Active Tablets 5mg 1 by mouth Unknown Calcium 0000 every night at bedtime Aspercreme 02/01/ Hx Cream 4% 6unit apply Adam Dougherty/Lidocaine 2017 - twice Jesica, 03/27/ daily to M.D. 2018 the painful joints as needed Oxycodone HCL 12/31/ Hx Tablets 5mg 15tab 1 tablet Adam 2017 - s by mouth Jesica, 03/21/ every 8 M.D. 2018 hours as needed for pain Metronidazole 10/21/ Hx Tablets 500mg 42tab 1 tab by A04.7 Jamey 2015 - s mouth D. 11/11/ three Macqueen, 2016 times a M.D. day Oxycodone HCL 01/18/ Hx Tablets 5mg 60tab 1-2 tabs M20.21 Hiro 2014 - s by mouth Zenon 02/04/ every 4-6 M.D. 2015 hours as needed pain Methotrexate / Hx Tablets 2.5mg on hold 5 Unknown 0000 - po once a week. 2015 Fish Oil / Hx Capsules 2000mg Unknown 0000 - 2016 Cinnamon / Hx Capsules 1000mg 1 by mouth Unknown 0000 - every day 2015 Folic Acid / Hx Tablets 1mg 1 by mouth Unknown 0000 - every day 2015 Gabapentin / Hx Capsules 100mg take 1 tab Unknown 0000 - tid prn 2017 Immunizations Description No Information Available Vital Signs Date Vital Result Comment 04/22/2018 9:16am Height 63.5 inches 5'3.50" Weight 239.00 lb Heart Rate 88 /min BP Systolic 136 mmHg BP Diastolic 78 mmHg Body Temperature 97.2 F Pain Level 3 BMI (Body Mass Index) 41.7 kg/m2 03/28/2018 8:22am Height 63.5 inches 5'3.50" Weight [...] H/L Range Note CBC Auto Diff 03/28/2018 [facility] White Blood 7.7 10^3/uL N 3.5-10.[address] [place] [address] [phone] Red Blood Count 4.74 10^6/uL N 4.00-5.40 [...] Cells % 0.1 Type & Screen 03/28/2018 [facility] Patient Blood Type O Positive [address] [place] [address] [phone] Antibody Screen NEGATIVE Urinalysis Profile 03/28/2018 [facility] Urine Color Yellow [address] [place] [phone] Urine Appearance Cloudy Urine Specific Herscher 1.010 N 1.010-1.030 Urine pH 5.0 N [...] Epithelial Cell Present Abnormal Absent Inr/Protime 03/28/2018 [facility] Inr 0.90 N 0.77-1.[address] [place] [phone] Laboratory test 03/28/2018 [facility] Partial 39.0 High 26.0- 36.[address] [place] [address] [place] [address] Time PTT [phone] Comp Metabolic 03/28/2018 [facility] Sodium 140 mmol/L N 135- [address] [place] [phone] Potassium 4.5 mmol/L N 3.5-5.0 Chloride 104 [...] 82.9 >60 2 Urine Culture And 03/28/2018 [facility] Urine Culture SEE RESULT [address] [place] [address] [phone] Laboratory test 02/21/2018 [facility] Rheumatoid < 10 IU/mL N <15 [address] [place] [address] [phone] Erythrocyte Sed Rate 8 mm/Hr N 0-40 5 C Reactive Protein < 1.00 mg/L N <8.01 6 Connective Tissue 02/21/2018 [facility] Anti-Nuclear Antibody 0.4 U [address] [place] [address] [phone] Cyclic Citrullinated Peptide <15.6 U 8 Interpretation See Comment 9 CBC Auto Diff 04/16/2017 [facility] White Blood 5.9 10^3/uL N 3.5-10.[address] [place] [address] [phone] Red Blood Count 4.52 10^6/uL N 4.0-5.4 [...] Blood Cells % 0.1 Lipid Profile 04/16/2017 [facility] Triglycerides 97 mg/dL 10 (Trig/Chol/HDL) [address] [place], [place] [phone] Cholesterol 149 mg/dL 11 HDL Cholesterol 61.0 mg/dL 12 LDL Cholesterol 69 mg/dL 13 Laboratory test 04/16/2017 [facility] Erythrocyte Sed 6 mm/Hr N 0-40 [address] [place] [address] [phone] C Reactive Protein < 1.00 mg/L N < 5.00 15 CBC Auto Diff 04/16/2017 [facility] White Blood 5.9 10^3/uL N 3.5-10.[address] [place] [address] [phone] Red Blood Count 4.52 10^6/uL N 4.0-5.4 [...] Cells % 0.1 Comp Metabolic Panel 04/16/2017 [facility] Sodium 138 mmol/L N 133-145 [address] [place] [address] [phone] Potassium 4.2 mmol/L N 3.5-5.0 Chloride 104 [...] Egfr 86.0 >60 16 Lipid Profile 04/16/2017 [facility] Triglycerides 97 mg/dL 17 (Trig/Chol/HDL) [address] [place] [address] [phone] Cholesterol 149 mg/dL 18 HDL Cholesterol 61.0 mg/dL 19 LDL Cholesterol 69 mg/dL 20 Comp Metabolic Panel 04/16/2017 [facility] Sodium 138 mmol/L N 133-145 [address] [place] [address] [phone] Potassium 4.2 mmol/L N 3.5-5.0 Chloride 104 [...] Egfr 86.0 >60 21 Laboratory test 04/16/2017 [facility] C Reactive < 1.00 N < 5.00 [address] Protein mg/[place] [address] [phone] Erythrocyte Sed Rate 6 mm/Hr N 0-40 23 Laboratory test 09/10/2016 [facility] Erythrocyte Sed 6 mm/Hr N 0-[address] [place] [address] [phone] C Reactive Protein < 1.00 mg/L N < 5.00 24 CBC Auto Diff 09/10/2016 [facility] White Blood 6.1 10^3/uL N 3.5-10.[address] [place] [address] [phone] Red Blood Count 4.66 10^6/uL N 4.0-5.4 [...] % 0.1 N Comp Metabolic Panel 09/10/2016 [facility] Sodium 141 mmol/L N 133-[address] [place] [address] [phone] Potassium 4.1 mmol/L N 3.5-5.0 Chloride 105 [...] 92.5 N >60 25 Lipid Profile 09/10/2016 [facility] Triglycerides 108 mg/dL N 26 (Trig/Chol/HDL) [address] [place] [address] [phone] Cholesterol 153 mg/dL N 27 HDL Cholesterol 60.9 mg/dL N 28 LDL Cholesterol 71 mg/dL N 29 Laboratory test 09/10/2016 [facility] TSH (Thyroid 1.81 mcIU/mL N 0.34-5.[address] Stim [place]) [place] [address] [phone] Laboratory test 12/13/2015 [facility] Creatine 106 U/L N 10- [address] Kinase(CK) [place] [address] [phone] C Reactive Protein < 1.00 mg/L N < 5.00 31 Connective Tissue 12/13/2015 [facility] Anti-Nuclear 0.5 U N [address] [place] [address] [phone] Cyclic Citrullinated Peptide <15.6 U N 33 Interpretation See Comment N 34 Laboratory test 12/13/2015 [facility] TSH (Thyroid 1.75 mcIU/mL N 0.34-5.60 [address] Stim [place]) [place] [address] [phone] Vitamin D 1,25 12/13/2015 [facility] Vitamin D 41.9 ng/mL N 30 -50 36 And Vitamin D,[address] Total 25(Oh) [place] [address] [phone] Vitamin D, 1,25 Dihydroxy 55 pg/mL N 18-78 37 Laboratory test 12/13/2015 [facility] Cyclic Citrullinated TNP N () [address] [place] [address] [phone] Rheumatoid Factor <15 IU/mL N <15 39 Uric Acid 6.9 mg/dL High 2.3-6.6 40 Lyme Disease Serology Negative N Negative 41 Laboratory 10/30/2015 [facility] Hepatitis C Nonreactive N Nonreactive test finding [address] [place] [address] [phone] Liver Function 10/30/2015 [facility] Total Protein 6.5 g/dL N 6.4-8.[address] [place] [address] [phone] Albumin 4.2 g/dL N 3.2-5.2 Globulin 2.3 g/dL N 2-4 Albumin/Globulin Ratio 1.8 N 1-3 Total Bilirubin 0.70 mg/dL N 0.2-1.0 Direct Bilirubin 0.10 mg/dL N 0.03-0.18 Indirect Bilirubin 0.6 mg/dL N 0.3-1.0 Alkaline Phosphatase 48 U/L N 34-104 Alt 52 U/L N 7-52 Ast 35 U/L N 13-39 Laboratory test 10/23/2015 [facility] C Difficile PCR SEE RESULT [address] [place] [address] [phone] Laboratory test 01/28/2015 [facility] Surgical SEE RESULT [address] Pathology BELOW [place], [place] [phone] 1 *Ascorbic acid is present which may [...] [address]: Krista Juárez MD Acct: [id number] Unit: [id number] AGE: 72 Location: [facility] Re03/28/18 SEX: F Status: REG REF SPEC: [id number] BIANCA: 03/28/18-[address]: Krista Juárez MD REQ: [id number] RECD: 03/28/18 STATUS: COMP _ [facility] ORDERED: Urine Culture QUERIES: Urine Source: Clean Catch Procedure Result Reported Site Urine Culture Final 03/29/18- 1214 ML No Growth (<1,000 CFU/mL) * ML - Main Lab . END OF REPORT DEPARTMENT OF PATHOLOGY, [address] [place] [address] Carlos Dodge M.D. Director TANI # [id number] 4 Please check today 5 Please check today 6 Please check today 7 REFERENCE VALUE <=1.0 (Negative) 8 REFERENCE VALUE <20.0 (Negative) 9 Tests for antibodies to dsDNA and NIRAV antigens are not performed automatically unless the KASSY result is > or= 3.0 U. Studies performed at [facility] indicate that positive KASSY results <3.0 U are rarely accompanied by positive second order tests. Test Performed by: [facility] - [address] [address] 10 Desirable: <150 Borderline High: 150-199 High: [...] > or= 3.0 U. Studies performed at [facility] indicate that positive KASSY results <3.0 U are rarely accompanied by positive second order tests. Test Performed by: [place] [address] Speeder Tender: Octavio Jacome II, M.D., Ph.D. 35 Please schedule labs this week 36 Please schedule labs this week 37 Test Performed by: [place] [address] Speeder Tender: Octavio Jacome II, M.D., Ph.D. 38 Cancelled due to duplicate test on this order Test Performed by: [place] [address] Speeder Tender: Octavio Jacome II, M.D., Ph.D. 39 Test Performed by: [place] [address] Speeder Tender: Octavio Jacome II, M.D., Ph.D. 40 Please schedule labs this week 41 Serologic response to B. burgdorferi infection is not detected, but cannot rule out early infection during which low or undetectable antibody levels to B. burgdorferi may be present. If clinically indicated, a new serum specimen should be submitted in 7-14 days. Test Performed by: [place] [address] Speeder Tender: Octavio Jacome II, M.D., Ph.D. 42 SEE RESULT BELOW Name: GLADIS DEL CASTILLO : [address]: Jamey Engel MD Acct: [id number] Unit: [id number] AGE: 69 Location: [facility] Re10/23/15 SEX: F Status: REG REF SPEC: [id number] BIANCA: 10/23/15 [facility] DR: Jamey Engel MD REQ: [id number] RECD: 10/23/15 STATUS: COMP _ SOURCE: STOOL SPDESC: ORDERED: C. diff PCR Procedure Result Reported Site Stool Specimen Description Final 10/23/15- 922 ML Stool Color Brown Stool Form Nonformed Stool Consistency Soft Mucoid C. difficile PCR Final 10/23/15- 918 ML Organism 1 027 Presumptive NEGATIVE Organism 2 Toxigenic C.diff POSITIVE * ML - MAIN LAB ([facility]) . END OF REPORT * ML=Testing performed at Main Lab DEPARTMENT OF PATHOLOGY, [address] [place] [address] Carlos Dodge M.D. Director [facility] # [id number] 43 SEE RESULT BELOW Name: VESTA DEL CASTILLOBAKARI Arce : [address]: Hiro Yarbrough MD Acct: [id number] Unit: [id number] AGE: 69 Location: [place] Re01/28/15 SEX: F Status: REG [facility] SPEC: [id number] BIANCA: 01/28/15- [facility] DR: Hiro Yarbrough MD REQ: [id number] RECD: 01/28/159957 STATUS: SOUT _ ORDERED: Decal, LEVEL III FINAL DIAGNOSIS Bone, right foot, excision: -- Benign bone, cartilage, and fibroconnective tissue with reactive changes. PRE-OPERATIVE DIAGNOSIS Osteoarthrosis right ankle and foot. GROSS DESCRIPTION The specimen is received in formalin labeled, Right Foot Bone Spurs, and consists of a 2.8 x 2.3 x 1.0 cm aggregate of horton-pink irregular bone fragments. Transcribing Machine Operator sections, one cassette following decalcification. MICROSCOPIC DESCRIPTION . Signed (signature on file) Eliane Copeland MD 1202 END OF REPORT * ML=Testing performed at Main Lab DEPARTMENT OF PATHOLOGY, [address] [place] [address] Carlos Dodge M.D. Director [facility] # [id number] Procedures Date Code Description Status 04/07/2018 96937 TKR Total Knee Replacement Completed 04/07/2018 57503 TKR Total Knee Replacement Completed 01/28/2015 71883 Arthrodesis Great Toe MP JT Completed 01/28/2015 07511 Arthrodesis Great Toe MP JT Completed Encounters Type Date Location Provider Dx Diagnosis Office Visit 04/09/2018 [facility] Octavio Z98.890 Other specified 1:30p Assoc,ADRIEL Black postprocedural Hospitalists states R55 Syncope and collapse D72.829 Elevated white blood cell count, unspecified E78.5 Hyperlipidemia, unspecified Office Visit 04/08/2018 [facility] Octavio Z98.890 Other specified 1:30p Assoc,ADRIEL Black postprocedural Hospitalists states R55 Syncope and collapse D72.829 Elevated white blood cell count, unspecified E78.5 Hyperlipidemia, unspecified Office Visit 04/07/2018 1:28p [facility] Loli I49.9 Cardiac Assoc,gerard Hauser D.O. arrhythmia, Hospitalists unspecified Office Visit 03/21/2018 2:20p Rheumatology Adam M17.12 Unilateral Services Of Jeffy Mooney M.D. primary osteoarthritis, left knee M06.4 Inflammatory polyarthropathy Z79.1 senior care (current) use of non-steroidal non-inflam (Nsaid) R74.0 [...] right knee Office Visit 02/21/2018 Rheumatology Adam Verde7.12 Unilateral primary 11:20a Services Of Jeffy Mooney M.D. 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 osteoarthritis, left knee M54.5 Low back pain Z79.1 senior care (current) use of non-steroidal non-inflam (Nsaid) Office Visit 12/31/2017 10:00a Rheumatology Services Adam Mooney M54.5 Low back Of Farm Laborer M.D. pain Z79.1 senior care (current) use of non-steroidal non-inflam (Nsaid) R20.8 Other disturbances of skin sensation Office Visit 07/16/2017 10:00a Rheumatology Services Lien Williamson4.5 Low back Of Farm Laborer M.D. 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-steroidal non-inflam (Nsaid) E78.4 Other hyperlipidemia M19.041 Primary osteoarthritis, right hand M19.042 Primary osteoarthritis, left hand Office Visit 04/08/2016 3:45p Neurosurgery Jaden Duckworth, M54.5 Low back pain Services Of Jeffy Barnhart Office Visit 03/13/2016 9:40a Rheumatology Adam Mooney, R74.0 Nonspec elev of Services Of Jeffy Barnhart levels of transamns & lactic acid dehydrgnse 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 arthritis without rheumatoid factor, [facility] site M79.641 Pain in right hand M79.642 Pain in left hand R94.5 Abnormal results of liver function studies R20.8 Other disturbances of skin sensation Office Visit 11/19/2015 [facility] Jamey Borden A04.Kaitlin Enterocolitis due 9:10a For Patel Engel M.D. to Clostridium Diseases difficile M06.9 Rheumatoid arthritis, unspecified Office Visit 10/29/2015 [facility] Jamey Borden A04.7 Enterocolitis due 9:10a For Patel Engel M.D. to Clostridium Diseases difficile R74.0 Nonspec elev of levels of transamns & lactic acid dehydrgnse E66.9 Obesity, unspecified Office Visit 10/22/2015 [facility] Jamey Borden A04.7 Enterocolitis due 8:30a For Patel Engel M.D. to Clostridium Diseases difficile R10.84 Generalized abdominal pain Office Visit 12/18/2014 Orthopedic Hiro 715.17 Osteoarthrosis 1:40p Services Of Bronwyn Yarbrough Localized Prim [facility]le [facility] Plan of Treatment Future Appointment(s):05/16/2018 3:00 pm - Krista Juárez M.D. at [facility]04/22/2018 - Krista Juárez M.D.Z47.1 Aftercare following joint replacement surgeryFollow up:Follow up: 3 boxkaT70.652 Presence of left artificial knee joint
--- NOTE | 2018-04-28 18:57 | ED ---
GI/ HPI - HPI Summary HPI Summary: A 72 y/o female presents to the ED c/o frequent diarrhea. In the ED room, the patient has a pulse of 102 BPM and O2 saturation of 97%. As per triage, "fever and sent by primary for possible cdiff b/c she reported diarrhea since wednesday pt aggitated". According to the patient, she has been experiencing diarrhea since Wednesday afternoon. She stated that she has been going many times. She has been on no antibiotics, except when she came out of surgery, she was given 2 bags of abx. Her surgery was on 04/07/2018. Additionally, her appetite has been down. Denies any abdominal pain. Patient has no other medical issues at this time. - History of Current Complaint Chief Complaint: EDGeneral Time Seen by Provider: 04/28/18 18:36 Stated Complaint: FEVER Hx Obtained From: Patient Hx Last Menstrual Period: menapause Onset/Duration: Started Days Ago, Still Present Timing: Constant Severity: Mild Current Severity: Mild Pain Intensity: 2 Location of Pain: None Associated Signs and Symptoms: Positive: Diarrhea Aggravating Factor(s): Nothing Alleviating Factor(s): Nothing - Additional Pertinent History Primary Care Physician: [id number] - Allergy/Home Medications Allergies/Adverse Reactions: Allergies Allergy/AdvReac Type Severity Reaction Status Date / Time amoxicillin [From Augmentin] Allergy Severe Diarrhea Verified 04/28/18 15:54 clavulanic acid Allergy Severe Diarrhea Verified 04/28/18 15:54 [From Augmentin] PMH/Surg Hx/FS Hx/Imm Hx Endocrine/Hematology History: Reports: Hx Anemia - HX OF IN 1999- NO PROBLEMS SINCE HYSTERCTOMY Denies: Hx Anticoagulant Therapy, Hx Diabetes, Hx Thyroid Disease Cardiovascular History: Reports: Other Cardiovascular Problems/Disorders - cholesterol Denies: Hx Congestive Heart Failure, Hx Deep Vein Thrombosis, Hx Hypertension , Hx Myocardial Infarction, Hx Pacemaker/ICD Respiratory History: Denies: Hx Asthma, Hx Chronic Obstructive Pulmonary Disease (COPD), Hx Lung Cancer, Hx Pneumonia, Hx Pulmonary Embolism GI History: Reports: Hx Hiatal Hernia - ?20 YEARS AGO- STATES NO PROBLEMS NOW Denies: Hx Gall Bladder Disease, Hx Gastrointestinal Bleed, Hx Ulcer, Hx Urosepsis History: Denies: Hx Kidney Stones, Hx Renal Disease Musculoskeletal History: Reports: Hx Arthritis - RHEUMATOID-METHOTREXATE FOR-, Hx Rheumatoid Arthritis - ON MEDS, Hx Bursitis, Hx Osteoporosis Sensory History: Reports: Hx Cataracts - BILATERAL, Hx Contacts or Glasses - GLASSES Denies: Hx Hearing Aid Opthamlomology History: Reports: Hx Cataracts - BILATERAL, Hx Contacts or Glasses - GLASSES Neurological History: Reports: Hx Nerve Disease - fibromyalgia Denies: Hx Dementia, Hx Migraine, Hx Seizures, Hx Transient Ischemic Attacks (TIA) Psychiatric History: Reports: Hx Depression - ON MEDICATION FOR Denies: Hx Anxiety, Hx Panic Disorder, Hx Schizophrenia, Hx Bipolar Disorder - Cancer History Hx Chemotherapy: No Hx Radiation Therapy: No - Surgical History Surgery Procedure, Year, and Place: TONSILLECTOMY A CHILD. SIGMOID COLON - STATES HAD 3 PROCEDURES FOR PRIOR TO 1994. 1994- LUMBAR DISCECTOMY SURGERY. 1999- HYSTERECTOMY. 2005- GALLBLADDER REMOVED. 2014- BONE FUSION RIGHT GREAT TOE Hx Anesthesia Reactions: No Infectious Disease History: No Infectious Disease History: Reports: Hx Clostridium Difficile Denies: Hx Hepatitis, Hx Human Immunodeficiency Virus (HIV), Hx of Known/ Suspected MRSA, Hx Shingles, Hx Tuberculosis, Hx Known/Suspected VRE, Hx Known/ Suspected VRSA, History Other Infectious Disease, Traveled Outside the [place] in Last 30 Days - Family History Known Family History: Positive: Cardiac Disease Negative: Hypertension - Social History Alcohol Use: Rare Alcohol Amount: "a beer occasionally," "once a month," not "in last 6 months" Substance Use Type: Reports: None Hx Tobacco Use: Yes Smoking Status (MU): Former Smoker Amount Used/How Often: OFF AND ON SOCIAL SMOKER X 25 YEARS Have You Smoked in the Last Year: Yes Review of Systems Negative: Fever Positive: Diarrhea, Other - POSITIVE: APPETITE CHANGE. Negative: Abdominal Pain All Other Systems Reviewed And Are Negative: Yes Physical Exam - Summary Physical Exam Summary: Appearance: Well appearing, no pain distress. Normal exam. Skin: warm, dry, reflects adequate perfusion Head/face: normal Eyes: EOMI, SON ENT: normal Neck: supple, non-tender Respiratory: CTA, breath sounds present Cardiovascular: RRR, pulses symmetrical Abdomen: non-tender, soft Musculoskeletal: normal, strength/ROM intact Neuro: normal, sensory motor intact, A&Ox3 Triage Information Reviewed: Yes Vital Signs On Initial Exam: Initial Vitals Temp Pulse Resp BP Pulse Ox 96.6 F 126 30 165/79 93 04/28/18 15:53 04/28/18 15:53 04/28/18 15:53 04/28/18 15:53 04/28/18 15:53 Vital Signs Reviewed: Yes Diagnostics - Vital Signs Vital Signs Temp Pulse Resp BP Pulse Ox 04/28/18 18:31 106 99 04/28/18 18:21 99.5 F 117 22 162/75 96 04/28/18 15:53 96.6 F 126 30 165/79 93 - Laboratory Result Diagrams: 04/28/18 19:20 04/28/18 19:20 Lab Statement: Any lab studies that have been ordered have been reviewed, and results considered in the medical decision making process. GIGU Course/Dx - Course Course Of Treatment: A 72 y/o female presents to the ED c/o frequent diarrhea. In the ED room, the patient has a pulse of 102 BPM and O2 saturation of 97%. As per triage, "fever and sent by primary for possible cdiff b/c she reported diarrhea since Wednesday pt aggitated". According to the patient, she has been experiencing diarrhea since Wednesday afternoon. She stated that she has been going many times. She has been on no antibiotics, except when she came out of surgery, she was given 2 bags of abx. Her surgery was on 04/07/2018. Additionally, her appetite has been down. Denies any abdominal pain. Patient has no other medical issues at this time. Physical examination was unremarkable. No laboratory scans were done. Hematology, Chemistry, and C. diff screen was done. No significant laboratory abnormalities were found, except with the C. diff coming back positive. In the ED course, the patient received Ultram. Patient will be discharged with a diagnosis of C. diff and diarrhea. Patient will be sent home with a prescription for Vancomycin. Patient is to follow up with primary care provider in 2-3 days. Patient is to return to ED for any new or worsening symptoms. Patient is agreeable with this plan. - Diagnoses Differential Diagnoses - Female: Diarrhea Provider Diagnoses: C. difficile diarrhea Discharge - Sign-Out/Discharge Documenting (check all that apply): Patient Departure - DISCHARGE - Discharge Plan Condition: Stable Disposition: HOME Prescriptions: Vancomycin CAP* 125 mg PO QID #40 cap Patient Education Materials: C Diff (Clostridium Difficile) Infection (ED), Acute Diarrhea (ED) Referrals: Vikram Rueda MD [Primary Care Provider] - 3 Days Additional Instructions: FOLLOW UP WITH PRIMARY CARE PROVIDER IN 2-3 DAYS. TAKE MEDICATIONS PRESCRIBED. RETURN TO ED FOR ANY NEW OR WORSENING SYMPTOMS. - Billing Disposition and Condition Condition: STABLE Disposition: Home - Attestation Statements Document Initiated by Ata: Yes Documenting Scribe: Reece Ambrosio Provider For Whom Ata is Documenting (Include Credential): Jamar Louis MD Scribe Attestation: Reece Barrios, scribed for Jamar Louis MD on 04/28/18 at 2201. Scribe Documentation Reviewed: Yes Provider Attestation: The documentation as recorded by the Reece duff accurately reflects the service I personally performed and the decisions made by , Jamar Louis MD Status of Scrnolbertoe Document: Viewed
[2018-04-28 19:37] LABS: ABS Basophils 0 10^3/ul (0-0.2); ABS Eosinophils 0 10^3/ul (0-0.6); ABS Lymphocytes 1.2 10^3/ul (1.0-4.8); ABS Neutrophils 7.3 10^3/ul (1.5-7.7); ABS Nucleated RBC 0 10^3/ul; Eosinophil % 0.5 %; Hematocrit 34 % (35-47); Hemoglobin 11.6 g/dl (12.0-16.0); Lymphocyte % 12.3 %; Mean Corpuscular HGB Conc 34 g/dl (31-36); Mean Corpuscular Hemoglobin 31 pg (27-31); Mean Corpuscular Volume 91 fL (80-97); Mean Platelet Volume 7.5 fL (7.4-10.4); Nucleated Red Blood Cells % 0; Platelet Count 327 10^3/ul (150-450); Red Blood Count 3.73 10^6/ul (4.00-5.40); Red Cell Distribution Width 13 % (10.5-15); White Blood Count 9.6 10^3/ul (3.5-10.8)
[2018-04-28 19:52] LABS: ALT 13 U/L (7-52); AST 17 U/L (13-39); Albumin 3.6 g/dL (3.2-5.2); Albumin/Globulin Ratio 1.2 (1-3); Alkaline Phosphatase 58 U/L (34-104); Anion Gap 6 mmol/L (2-11); BUN/Creatinine Ratio 12.2 (8-20); Blood Urea Nitrogen 10 mg/dL (6-24); CO2 Carbon Dioxide 29 mmol/L (22-32); Chloride 100 mmol/L (101-111); EGFR Non-African American 68.5 (>60); Globulin 2.9 g/dL (2-4); Glucose 114 mg/dL (70-100); Sodium 135 mmol/L (135-145); Total Protein 6.5 g/dL (6.4-8.9)
[2018-04-28] MEDS ORDERED: traMADol TAB* 50 MG PO ONE (20:39)
[2018-04-28] MEDS ORDERED: VANCOMYCIN PO ONE (21:42)
[2018-04-28 22:04] VITALS: BP 145/73
[2018-04-28] MEDS ORDERED: Vancomycin CAP* 125 MG CAP PO ONE (23:00)
--- NOTE | 2018-04-29 06:12 | PN ---
Progress Note - Progress Note Date of Service: 04/28/18 Note: Pt. seen in ED yesterday for diarrhea. Final stool sample today is positive for C. Diff. Pt. treated appropriately in the ED yesterday and started on Vancomycin PO. No change in treatment needed at this time.
== END 2018-04-28 22:13 | disposition home or self-care (01) ==
LOC: ED 15:51
DX: A04.72 Enterocolitis due to Clostridium difficile, not specified as recurrent (principal); D64.9 Anemia, unspecified; M06.9 Rheumatoid arthritis, unspecified; M79.7 Fibromyalgia; F32.9 Major depressive disorder, single episode, unspecified; Z87.891 Personal history of nicotine dependence
CPT/HCPCS: 36415; 80053; 83690; 85025; 87493; 99283; A9270-GY

== ENCOUNTER 2018-07-01 20:43 | Emergency (ER) | payer MEDICARE, BC ==
--- OUTSIDE RECORDS SUMMARY | 2018-07-01 20:56 | XMS REPORT | Continuity of Care Document ---
:1945 External Reference #:[id number] Author Name Haritha Hendricks Care Team Providers Name Role Phone Vikram Rueda MD Primary Care Physician Unavailable Payers Type Date Identification Numbers Payment Provider Subscriber Effective: 2010 Policy Number: [id number] Medicare Gladis Del Castillo PayID: [id number] [address] [place] [address] Effective: 2014 Policy Number: [id number] [facility] Gladis Del Castillo PayID: [id number] [address] [place] [address] Onset: 1991 Policy Number: [id number] Special Funds Gladis Del Castillo Group Number: [id number] [place] [address] Advance Directives Description No Information Available Problems Date Description Provider Status Onset: 05/16/2018 Arthroplasty of knee Krista Juárez M.D. Active Onset: 03/14/2018 Inflammatory polyarthropathy Krista Juárez M.D. [...] Use Denies Drug Use Smoking Status Reviewed: 06/06/18 Patient is a former quit 3 years ago smoker and was a light smoker Exercise Type/Frequency Exercises sporadically Allergies, Adverse Reactions, Alerts Date Description Reaction Status Severity Comments 12/12/2015 Augmentin c.diff Active 05/16/2018 Clindamycin Diarrhea, c.diff Active 12/18/2014 NKDA Inactive Medications Medication Date Status Form Strength Qnty SIG Indications Ordering Provider Percocet 04/10/ Active Tablets 5-325mg 70tab 1-2 tabs Krista 2017 s by mouth Franck, every 8 M.D. hours as needed pain Vitamin D / Active Capsules 3000mg 1 by mouth Unknown 0000 every day Vitamin C / Active Chewtabs 500mg 1 by mouth Unknown 0000 every day Bupropion HCL ER / Active Tablets ER 150mg 1 by mouth Unknown (SR) 0000 12HR qd Rosuvastatin / Active Tablets 5mg 1 by mouth Unknown Calcium 0000 every night at bedtime Vancomycin HCL / Active Capsules 125mg take 1 Unknown 0000 capsule by mouth four times a day For 4 Weeks B12 / Active Unknown 0000 Tramadol HCL 04/10/ Hx Tablets 50mg 28tab 1 tablet Krista 2017 by mouth Franck, 06/05/ every 4-6 M.D. 2019 hours as needed post op pain. alternate with perocet as needed Cyclobenzaprine 04/10/ Hx Tablets 10mg 30tab take 1 tab Krista HCL 2017 - three Franck, 05/15/ times a M.D. 2018 day as needed for pain/muscl e spasms Eliquis 04/10/ Hx Tablets 2.5mg 60tab take 1 tab Krista 2017 - every 12 Franck, 05/15/ hours x 4 M.D. 2018 weeks Aspercreme 02/01/ Hx Cream 4% 6unit apply Adam W/Lidocaine 2017 - twice Jesica, 03/27/ daily to M.D. 2018 the painful joints as needed Oxycodone HCL 12/31/ Hx Tablets 5mg 15tab 1 tablet Adam 2017 s by mouth Jesica, 03/21/ every 8 M.D. 2018 hours as needed for pain Metronidazole 10/21/ Hx Tablets 500mg 42tab 1 tab by A04.7 Jamey 2015 - mouth D. 11/11/ parlu Engel, 2016 times a M.D. day Oxycodone HCL 01/18/ Hx Tablets 5mg 60tab 1-2 tabs M20.21 Hiro 2015 - s by mouth Zenon, 02/04/ every 4-6 M.D. 2015 hours as needed pain Celebrex / Hx Capsules 200mg 1 by mouth Unknown 0000 - every day 2018 Methotrexate / Hx Tablets 2.5mg on hold 5 Unknown 0000 - po once a . 2015 Glucosamine / Hx Capsules 1500Com 1 by mouth Unknown Chondroitin 1500 0000 - every day Complex 2018 Fish Oil / Hx Capsules 2000mg Unknown 0000 - 2016 Cinnamon / Hx Capsules 1000mg 1 by mouth Unknown 0000 - every day 2015 Folic Acid / Hx Tablets 1mg 1 by mouth Unknown 0000 - every day 2015 Cinnamon 00/ Hx Capsules 1000mg 1 by mouth Unknown 0000 - every day 2018 Gabapentin / Hx Capsules 100mg take 1 tab Unknown 0000 - tid prn 2017 Immunizations Description No Information Available Vital Signs Date Vital Result Comment 06/06/2018 1:04pm Height 63 inches 5'3" Weight 231.00 lb BP Systolic 146 mmHg BP Diastolic 86 mmHg Body Temperature 97.8 F BMI (Body Mass Index) 40.9 kg/m2 05/19/2018 2:28pm Height 63.5 inches 5'3.50" Weight 230.25 lb Heart Rate 84 /min BP Systolic Sitting 142 mmHg BP Diastolic Sitting 82 mmHg Respiratory Rate 14 /min Body Temperature 98.3 F BMI (Body Mass Index) 40.1 kg/m2 05/16/2018 3:17pm Height 63.5 inches 5'3.50" Weight 231.00 lb BP Systolic 132 mmHg BP Diastolic 83 mmHg Respiratory Rate 17 /min Pain Level 6 BMI (Body Mass Index) 40.3 kg/m2 04/22/2018 9:16am Height 63.5 inches 5'3.50" Weight [...] H/L Range Note CBC Auto Diff 03/28/2018 [facility] White Blood 7.7 10^3/uL N 3.5-10.[address] [place] [address] [phone] Red Blood Count 4.74 10^6/uL N 4.00-5.40 [...] Cells % 0.1 Type & Screen 03/28/2018 [facility] Patient Blood Type O Positive [address] [place] [address] [phone] Antibody Screen NEGATIVE Urinalysis Profile 03/28/2018 [facility] Urine Color Yellow [address] [place] [address] [phone] Urine Appearance Cloudy Urine Specific [place] 1.010 N 1.010-1.030 Urine pH 5.0 N [...] Epithelial Cell Present Abnormal Absent Inr/Protime 03/28/2018 [facility] Inr 0.90 N 0.77-1.[address] [place] [address] [phone] Laboratory test 03/28/2018 [facility] Partial 39.0 High 26.0- 36.[address] [place] [address] Time PTT [phone] Comp Metabolic 03/28/2018 [facility] Sodium 140 mmol/L N 135- [address] [place] [address] [phone] Potassium 4.5 mmol/L N 3.5-5.0 Chloride 104 [...] 82.9 >60 2 Urine Culture And 03/28/2018 [facility] Urine Culture SEE RESULT [address] [place] [address] [phone] Laboratory test 02/21/2018 [facility] Rheumatoid < 10 IU/mL N <15 [address] [place] [address] [phone] Erythrocyte Sed Rate 8 mm/Hr N 0-40 5 C Reactive Protein < 1.00 mg/L N <8.01 6 Connective Tissue 02/21/2018 [facility] Anti-Nuclear Antibody 0.4 U [address] [place] [address] [phone] Cyclic Citrullinated Peptide <15.6 U 8 Interpretation See Comment 9 CBC Auto Diff 04/16/2017 [facility] White Blood 5.9 10^3/uL N 3.5-10.[address] [place] [address] [phone] Red Blood Count 4.52 10^6/uL N 4.0-5.4 [...] Blood Cells % 0.1 Lipid Profile 04/16/2017 [facility] Triglycerides 97 mg/dL 10 (Trig/Chol/HDL) [address] [place] [address] [phone] Cholesterol 149 mg/dL 11 HDL Cholesterol 61.0 mg/dL 12 LDL Cholesterol 69 mg/dL 13 Laboratory test 04/16/2017 [facility] Erythrocyte Sed 6 mm/Hr N 0-40 [address] [place] [address] [phone] C Reactive Protein < 1.00 mg/L N < 5.00 15 CBC Auto Diff 04/16/2017 [facility] White Blood 5.9 10^3/uL N 3.5-10.[address] [place] [address] [phone] Red Blood Count 4.52 10^6/uL N 4.0-5.4 [...] Cells % 0.1 Comp Metabolic Panel 04/16/2017 [facility] Sodium 138 mmol/L N 133-[address] [place] [address] [phone] Potassium 4.2 mmol/L N 3.5-5.0 Chloride 104 [...] Egfr 86.0 >60 16 Lipid Profile 04/16/2017 [facility] Triglycerides 97 mg/dL 17 (Trig/Chol/HDL) [address] [place] [address] [phone] Cholesterol 149 mg/dL 18 HDL Cholesterol 61.0 mg/dL 19 LDL Cholesterol 69 mg/dL 20 Comp Metabolic Panel 04/16/2017 [facility] Sodium 138 mmol/L N 133-[address] [place] [address] [phone] Potassium 4.2 mmol/L N 3.5-5.0 Chloride 104 [...] Egfr 86.0 >60 21 Laboratory test 04/16/2017 [facility] C Reactive < 1.00 N < 5.00 [address] Protein mg/[place] [address] [phone] Erythrocyte Sed Rate 6 mm/Hr N 0-40 23 Laboratory test 09/10/2016 [facility] Erythrocyte Sed 6 mm/Hr N 0-[address] [place] [address] [phone] C Reactive Protein < 1.00 mg/L N < 5.00 24 CBC Auto Diff 09/10/2016 [facility] White Blood 6.1 10^3/uL N 3.5-10.[address] [place] [address] [phone] Red Blood Count 4.66 10^6/uL N 4.0-5.4 [...] % 0.1 N Comp Metabolic Panel 09/10/2016 [facility] Sodium 141 mmol/L N 133-[address] [place] [address] [phone] Potassium 4.1 mmol/L N 3.5-5.0 Chloride 105 [...] 92.5 N >60 25 Lipid Profile 09/10/2016 [facility] Triglycerides 108 mg/dL N 26 (Trig/Chol/HDL) [address] [place] [address] [phone] Cholesterol 153 mg/dL N 27 HDL Cholesterol 60.9 mg/dL N 28 LDL Cholesterol 71 mg/dL N 29 Laboratory test 09/10/2016 [facility] TSH (Thyroid 1.81 mcIU/mL N 0.34-5.[address] Stim [place]) [place] [address] [phone] Laboratory test 12/13/2015 [facility] Creatine 106 U/L N 10- [address] Kinase(CK) [place] [address] [phone] C Reactive Protein < 1.00 mg/L N < 5.00 31 Connective Tissue 12/13/2015 [facility] Anti-Nuclear 0.5 U N [address] [place] [address] [phone] Cyclic Citrullinated Peptide <15.6 U N 33 Interpretation See Comment N 34 Laboratory test 12/13/2015 [facility] TSH (Thyroid 1.75 mcIU/mL N 0.34-5.60 [address] Stim [place]) [place] [address] [phone] Vitamin D 1,25 12/13/2015 [facility] Vitamin D 41.9 ng/mL N 30 -50 36 And Vitamin D,[address] Total 25(Oh) [place] [address] [phone] Vitamin D, 1,25 Dihydroxy 55 pg/mL N 18-78 37 Laboratory test 12/13/2015 [facility] Cyclic Citrullinated TNP N () [address] [place] [address] [phone] Rheumatoid Factor <15 IU/mL N <15 39 Uric Acid 6.9 mg/dL High 2.3-6.6 40 Lyme Disease Serology Negative N Negative 41 Laboratory 10/30/2015 [facility] Hepatitis C Nonreactive N Nonreactive test finding [address] [place] [address] [phone] Liver Function 10/30/2015 [facility] Total Protein 6.5 g/dL N 6.4-8.[address] [place] [address] [phone] Albumin 4.2 g/dL N 3.2-5.2 Globulin 2.3 g/dL N 2-4 Albumin/Globulin Ratio 1.8 N 1-3 Total Bilirubin 0.70 mg/dL N 0.2-1.0 Direct Bilirubin 0.10 mg/dL N 0.03-0.18 Indirect Bilirubin 0.6 mg/dL N 0.3-1.0 Alkaline Phosphatase 48 U/L N 34-104 Alt 52 U/L N 7-52 Ast 35 U/L N 13-39 Laboratory test 10/23/2015 [facility] C Difficile PCR SEE RESULT [address] [place] [address] [phone] Laboratory test 01/28/2015 [facility] Surgical SEE RESULT [address] [place] [address] [phone] 1 *Ascorbic acid is present which may [...] (or dialysis) 3 SEE RESULT BELOW Name: MAGDALENEGLADIS : [address]: Krista Juárez MD Acct: [id number] Unit: [id number] AGE: 72 Location: PAT Re03/28/18 SEX: F Status: REG REF SPEC: [id number] BIANCA: 03/28/[address]: Krista Juárez MD REQ: [id number] RECD: 03/28/18 STATUS: COMP _ SOURCE: URINE SPDESC: ORDERED: Urine Culture QUERIES: Urine Source: Clean Catch Procedure Result Reported Site Urine Culture Final 03/29/18- 1214 ML No Growth (<1,000 CFU/mL) * ML - Main Lab . END OF REPORT DEPARTMENT OF PATHOLOGY, [address] [place] [address] Carlos Dodge M.D. Director [facility] # [id number] 4 Please check today 5 Please check today 6 Please check today 7 REFERENCE VALUE <=1.0 (Negative) 8 REFERENCE VALUE <20.0 (Negative) 9 Tests for antibodies to dsDNA and NIRAV antigens are not performed automatically unless the KASSY result is > or= 3.0 U. Studies performed at [facility] indicate that positive KASSY results <3.0 U are rarely accompanied by positive second order tests. Test Performed by: [facility] [address] [address] 10 Desirable: <150 Borderline High: 150-199 High: [...] > or= 3.0 U. Studies performed at [facility] indicate that positive KASSY results <3.0 U are rarely accompanied by positive second order tests. Test Performed by: [place] [address] Sticker Operator: Octavio Jacome II, M.D., Ph.D. 35 Please schedule labs this week 36 Please schedule labs this week 37 Test Performed by: [place] [address] Sticker Operator: Octavio Jacome II, M.D., Ph.D. 38 Cancelled due to duplicate test on this order Test Performed by: [address] [address] Sticker Operator: Octavio Jacome II, M.D., Ph.D. 39 Test Performed by: [place] [address] Sticker Operator: Octavio Jacome II, M.D., Ph.D. 40 Please schedule labs this week 41 Serologic response to B. burgdorferi infection is not detected, but cannot rule out early infection during which low or undetectable antibody levels to B. burgdorferi may be present. If clinically indicated, a new serum specimen should be submitted in 7-14 days. Test Performed by: [place] [address] Sticker Operator: Octavio Jacome II, M.D., Ph.D. 42 SEE RESULT BELOW Name: GLADIS DEL CASTILLO : [address]: Jamey Engel MD Acct: [id number] Unit: [id number] AGE: 69 Location: [facility] Re10/23/15 SEX: F Status: REG REF SPEC: [id number] BIANCA: 10/23/[address]: Jamey Engel MD REQ: [id number] RECD: 10/23/15 STATUS: COMP _ SOURCE: STOOL SPDESC: ORDERED: C. diff PCR Procedure Result Reported Site Stool Specimen Description Final 10/23/15922 ML Stool Color Brown Stool Form Nonformed Stool Consistency Soft Mucoid C. difficile PCR Final 10/23/15918 ML Organism 1 027 Presumptive NEGATIVE Organism 2 Toxigenic C.diff POSITIVE * ML - MAIN LAB ([facility]) . END OF REPORT * ML=Testing performed at Main Lab DEPARTMENT OF PATHOLOGY, [address] [place] [address] Carlos Dodge M.D. Director [facility] # [id number] 43 SEE RESULT BELOW Name: GLADIS DEL CASTILLO : [address]: Hiro Yarbrough MD Acct: [id number] Unit: [id number] AGE: 69 Location: OR Re01/28/15 SEX: F Status: REG SD SPEC: [id number] BIANCA: 01/28/15- [facility] DR: Hiro Yarbrough MD REQ: [id number] RECD: 01/28/15 STATUS: SOUT _ ORDERED: Decal, LEVEL III FINAL DIAGNOSIS Bone, right foot, excision: -- Benign bone, cartilage, and fibroconnective tissue with reactive changes. PRE-OPERATIVE DIAGNOSIS Osteoarthrosis right ankle and foot. GROSS DESCRIPTION The specimen is received in formalin labeled, Right Foot Bone Spurs, and consists of a 2.8 x 2.3 x 1.0 cm aggregate of horton-pink irregular bone fragments. Executive Vice President sections, one cassette following decalcification. MICROSCOPIC DESCRIPTION . Signed (signature on file) Eliane Copeland MD 1202 END OF REPORT * ML=Testing performed at Main Lab DEPARTMENT OF PATHOLOGY, [address] [place] [address] Carlos Dodge M.D. Director [facility] # [id number] Procedures Date Code Description Status 04/07/2018 32519 TKR Total Knee Replacement Completed 04/07/2018 00691 TKR Total Knee Replacement Completed 03/28/2018 91758 EKG, Interpretation Only Completed 01/28/2015 44985 Arthrodesis Great Toe MP JT Completed 01/28/2015 88004 Arthrodesis Great Toe MP JT Completed Encounters Type Date Location Provider Dx Diagnosis [facility] d/t 3:00p Infectious Diseases Bronwyn Engel Clostridium difficile, not spcf as recur Office Visit 04/09/2018 [facility] Z98.890 Other specified 1:30p Assoc,ADRIEL Black postprocedural Hospitalists states R55 Syncope and collapse D72.829 Elevated white blood cell count, unspecified E78.5 Hyperlipidemia, unspecified Office Visit 04/08/2018 [facility] Z98.890 Other specified 1:30p Assocgerard PA postprocedural Hospitalists states R55 Syncope and collapse D72.829 Elevated white blood cell count, unspecified E78.5 Hyperlipidemia, unspecified Office Visit 04/07/2018 1:28p [facility] Loli I49.9 Cardiac Assoc,gerard Hauser D.O. arrhythmia, Hospitalists unspecified Office Visit 03/21/2018 2:20p Rheumatology Adam M17.12 Unilateral Services Of Jeffy Mooney M.D. primary osteoarthritis, left knee M06.4 Inflammatory polyarthropathy Z79.1 student services rep (current) use of non-steroidal non-inflam (Nsaid) R74.0 [...] left knee M54.5 Low back pain Z79.1 student services rep (current) use of non-steroidal non-inflam (Nsaid) R20.8 Other disturbances of skin sensation M06.4 Inflammatory polyarthropathy Office Visit 02/01/2018 Rheumatology Adam Verde7.12 Unilateral primary 2:40p Services Of Jeffy Mooney M.D. osteoarthritis, left knee M54.5 Low back pain Z79.1 skilled nursing (current) use of non-steroidal non-inflam (Nsaid) Office Visit 12/31/2017 10:00a Rheumatology Services Lien Williamson4.5 Low back Of Swatch Maker M.D. pain Z79.1 skilled nursing (current) use of non-steroidal non-inflam (Nsaid) R20.8 Other disturbances of skin sensation Office Visit 07/16/2017 10:00a Rheumatology Services Lien Williamson4.5 Low back Of Swatch Maker M.D. pain M70.71 Other bursitis of hip, right hip Z79.1 student services rep (current) use of non-steroidal non-inflam (Nsaid) R94.5 Abnormal results of liver function studies Office Visit 12/15/2016 8:00a Rheumatology Adam Mooney M70.71 Other bursitis Services Of Jeffy Barnhart of hip, right hip Z79.1 student services rep (current) use of non-steroidal non-inflam (Nsaid) E78.4 Other hyperlipidemia R94.5 Abnormal results of liver function studies Office Visit 09/10/2016 9:00a Rheumatology Adam Mooney M70.71 Other bursitis Services Of Jeffy Barnhart of hip, right hip Z79.1 student services rep (current) use of non-steroidal non-inflam (Nsaid) E78.4 Other hyperlipidemia M19.041 Primary osteoarthritis, right hand M19.042 Primary osteoarthritis, left hand Office Visit 04/08/2016 3:45p Neurosurgery Lien Garcia4.5 Low back pain Services Of Jeffy Barnhart Office Visit 03/13/2016 9:40a Rheumatology Adam Mooney R74.0 Nonspec elev of Services Of Jeffy Barnhart levels of transamns & lactic acid dehydrgnse Z79.1 student services rep (current) use of non-steroidal non-inflam (Nsaid) M19.041 Primary osteoarthritis, right hand M19.042 Primary osteoarthritis, left hand Office Visit 12/12/2015 11:00a Rheumatology Adam M06.00 Rheumatoid Services Of Jeffy Mooney M.D. arthritis without rheumatoid factor, [facility] M79.641 Pain in right hand M79.642 Pain in left hand R94.5 Abnormal results of liver function studies R20.8 Other disturbances of skin sensation Office Visit 11/19/2015 [facility] Jamey Borden A04.7 Enterocolitis due 9:10a For Patel Engel M.D. to Clostridium Diseases difficile M06.9 Rheumatoid arthritis, unspecified Office Visit 10/29/2015 [facility] Jamey Borden A04.7 Enterocolitis due 9:10a For Patel Engel M.D. to Clostridium Diseases difficile R74.0 Nonspec elev of levels of transamns & lactic acid dehydrgnse E66.9 Obesity, unspecified Office Visit 10/22/2015 [facility] Jamey Borden A04.7 Enterocolitis due 8:30a For Patel Engel M.D. to Clostridium Diseases difficile R10.84 Generalized abdominal pain Office Visit 12/18/2014 Orthopedic Hiro 715.17 Osteoarthrosis 1:40p Services Of Bronwyn Yarbrough Localized Prim Ankle [facility] Plan of Treatment Future Appointment(s):07/08/2018 1:15 pm - Krista Juárez M.D. at [facility]07/06/2018 9:40 am - Adam Mooney M.D. at [facility]06/06/2018 - Krista Juárez M.D.Z47.1 Aftercare following joint replacement surgeryNew Therapy:Physical TherapyFollow up:Follow up:Z96.652 Presence of left artificial knee joint
[2018-07-01 22:16] LABS: ABS Basophils 0.1 10^3/ul (0-0.2); ABS Eosinophils 0.3 10^3/ul (0-0.6); ABS Lymphocytes 2.1 10^3/ul (1.0-4.8); ABS Monocytes 0.5 10^3/ul (0-0.8); ABS Neutrophils 7.7 10^3/ul (1.5-7.7); ABS Nucleated RBC 0 10^3/ul; Eosinophil % 2.4 %; Hematocrit 42 % (35-47); Lymphocyte % 19.8 %; Mean Corpuscular HGB Conc 33 g/dl (31-36); Mean Corpuscular Hemoglobin 30 pg (27-31); Mean Corpuscular Volume 89 fL (80-97); Mean Platelet Volume 7.9 fL (7.4-10.4); Nucleated Red Blood Cells % 0.1; Platelet Count 289 10^3/ul (150-450); Red Blood Count 4.73 10^6/ul (4.00-5.40); Red Cell Distribution Width 14 % (10.5-15); White Blood Count 10.7 10^3/ul (3.5-10.8)
[2018-07-01 22:35] LABS: Activated Partial Thrombo Time 38.3 seconds (26.0-36.3); Albumin 4.2 g/dL (3.2-5.2); Albumin/Globulin Ratio 1.4 (1-3); BUN/Creatinine Ratio 15.7 (8-20); Calcium 10.2 mg/dL (8.6-10.3); EGFR African American 81.8 (>60); EGFR Non-African American 67.6 (>60); Magnesium 1.9 mg/dL (1.9-2.7); Potassium 4.2 mmol/L (3.5-5.0); Total Bilirubin 0.7 mg/dL (0.2-1.0); Total Protein 7.2 g/dL (6.4-8.9)
[2018-07-01 22:46] LABS: Urine Appearance Cloudy; Urine Bacteria 1+ (Absent); Urine Bilirubin Negative (Negative); Urine Blood Negative (Negative); Urine Color Yellow; Urine Glucose Negative (Negative); Urine Ketones Negative (Negative); Urine Nitrite Negative (Negative); Urine Protein Negative (Negative); Urine Red Blood Cell 1+(3-5/hpf) (Absent); Urine Specific Gravity 1.005 (1.010-1.030); Urine Squamous Epithelial Cell Present (Absent); Urine Urobilinogen Negative (Negative); Urine White Blood Cell 3+(>20/hpf) (Absent)
[2018-07-01] MEDS ORDERED: Iohexol 350* (CONTRAST) 500 ML MDV IV ONE (22:56)
[2018-07-01 23:02] LABS: TSH (Thyroid Stimulating Horm) 4.11 mcIU/mL (0.34-5.60)
[2018-07-02] MEDS ORDERED: Al Hydrox/Mg Hydrox/Simet LIQ* 30 ML UDC PO ONE (01:19)
[2018-07-02] MEDS ORDERED: Lidocaine 2% VISCOUS* 15 ML UDC PO ONE (01:19)
--- NOTE | 2018-07-02 01:25 | ED ---
HPI Chest Pain - HPI Summary HPI Summary: Complains of sudden onset bilateral upper chest pain starting today at rest, with associated bilateral side and posterior neck pain. Patient has active CP described as new onset, constant, rated at 5/10, pressure. Patient denies shortness of breath except when she tries to lay flat. History of knee surgery April 07, was on Eliquis for 1 month. Currently taking antibiotics for C. difficile infection. Denies fever, cough, sore throat, N/V/D, abdominal pain, change in urine, change in BM, vaginal symptoms. Medical history is HDL, C. difficile, arthritis. From smoker quit 7 years ago. Occasional EtOH, denies recreational drug use. Took aspirin at 3:30 PM. She also states she has white coat syndrome that causes elevated blood pressure. - History of Current Complaint Chief Complaint: EDChestPainROMI Time Seen by Provider: 07/01/18 21:34 Hx Obtained From: Patient Hx Last Menstrual Period: menapause Onset/Duration: Started Hours Ago Timing: Constant Initial Severity: Moderate Current Severity: Moderate Pain Intensity: 5 Pain Scale Used: 0-10 Numeric Chest Pain Location: Upper Sternal, Left Anterior, Right Anterior Chest Pain Radiates: Yes Chest Pain Radiates To:: Neck Character: Pressure/Squeezing Aggravating Factor(s): Nothing Alleviating Factor(s): Position Associated Signs and Symptoms: Positive: Chest Pain, Shortness of Breath - Additional Pertinent History Primary Care Physician: [id number] - Allergy/Home Medications Allergies/Adverse Reactions: Allergies Allergy/AdvReac Type Severity Reaction Status Date / Time amoxicillin [From Augmentin] Allergy Severe Diarrhea Verified 04/28/18 15:54 clavulanic acid Allergy Severe Diarrhea Verified 04/28/18 15:54 [From Augmentin] clindamycin Allergy Diarrhea Verified 07/01/18 20:50 Home Medications: Home Medications Ascorbic Acid TAB* [Vitamin C TAB*] 500 mg PO DAILY 07/01/18 [History Confirmed 07/01/18] PMH/Surg Hx/FS Hx/Imm Hx Endocrine/Hematology History: Reports: Hx Anemia - HX OF IN 1999- NO PROBLEMS SINCE HYSTERCTOMY Denies: Hx Anticoagulant Therapy, Hx Diabetes, Hx Thyroid Disease Cardiovascular History: Reports: Other Cardiovascular Problems/Disorders - cholesterol Denies: Hx Congestive Heart Failure, Hx Deep Vein Thrombosis, Hx Hypertension , Hx Myocardial Infarction, Hx Pacemaker/ICD Respiratory History: Denies: Hx Asthma, Hx Chronic Obstructive Pulmonary Disease (COPD), Hx Lung Cancer, Hx Pneumonia, Hx Pulmonary Embolism GI History: Reports: Hx Hiatal Hernia - ?20 YEARS AGO- STATES NO PROBLEMS NOW Denies: Hx Gall Bladder Disease, Hx Gastrointestinal Bleed, Hx Ulcer, Hx Urosepsis History: Denies: Hx Kidney Stones, Hx Renal Disease Musculoskeletal History: Reports: Hx Arthritis - RHEUMATOID-METHOTREXATE FOR-, Hx Rheumatoid Arthritis - ON MEDS, Hx Bursitis, Hx Osteoporosis Sensory History: Reports: Hx Cataracts - BILATERAL, Hx Contacts or Glasses - GLASSES Denies: Hx Hearing Aid Opthamlomology History: Reports: Hx Cataracts - BILATERAL, Hx Contacts or Glasses - GLASSES Neurological History: Reports: Hx Nerve Disease - fibromyalgia Denies: Hx Dementia, Hx Migraine, Hx Seizures, Hx Transient Ischemic Attacks (TIA) Psychiatric History: Reports: Hx Depression - ON MEDICATION FOR Denies: Hx Anxiety, Hx Panic Disorder, Hx Schizophrenia, Hx Bipolar Disorder - Cancer History Hx Chemotherapy: No Hx Radiation Therapy: No - Surgical History Surgery Procedure, Year, and Place: TONSILLECTOMY A CHILD. SIGMOID COLON - STATES HAD 3 PROCEDURES FOR PRIOR TO 1994. 1994- LUMBAR DISCECTOMY SURGERY. 1999- HYSTERECTOMY. 2005- GALLBLADDER REMOVED. 2014- BONE FUSION RIGHT GREAT TOE Hx Anesthesia Reactions: No Infectious Disease History: No Infectious Disease History: Reports: Hx Clostridium Difficile Denies: Hx Hepatitis, Hx Human Immunodeficiency Virus (HIV), Hx of Known/ Suspected MRSA, Hx Shingles, Hx Tuberculosis, Hx Known/Suspected VRE, Hx Known/ Suspected VRSA, History Other Infectious Disease, Traveled Outside the [place] in Last 30 Days - Family History Known Family History: Positive: Cardiac Disease Negative: Hypertension - Social History Alcohol Use: None Alcohol Amount: "a beer occasionally," "once a month," not "in last 6 months" Substance Use Type: Reports: None Hx Tobacco Use: Yes Smoking Status (MU): Former Smoker Amount Used/How Often: OFF AND ON SOCIAL SMOKER X 25 YEARS Have You Smoked in the Last Year: Yes Review of Systems Constitutional: Negative Eyes: Negative ENT: Negative Positive: Chest Pain Positive: Shortness Of Breath Gastrointestinal: Negative Genitourinary: Negative Musculoskeletal: Negative Skin: Negative Neurological: Negative Psychological: Normal All Other Systems Reviewed And Are Negative: Yes Physical Exam - Summary Physical Exam Summary: Lung sounds clear to auscultation bilaterally. Chest pain reproducible. Abdomen soft nontender. Patient positive for muscle tenderness along the sternocleidomastoid bilaterally and paraspinal muscles of C-spine. Triage Information Reviewed: Yes Vital Signs On Initial Exam: Initial Vitals Temp Pulse Resp BP Pulse Ox 98.7 F 112 18 194/100 96 07/01/18 20:46 07/01/18 20:46 07/01/18 20:46 07/01/18 20:46 07/01/18 20:46 Vital Signs Reviewed: Yes Appearance: Positive: Well-Appearing Skin: Positive: Warm Head/Face: Positive: Normal Head/Face Inspection Eyes: Positive: Normal ENT: Positive: Normal ENT inspection Neck: Positive: Supple, Tenderness @ Respiratory/Lung Sounds: Positive: Clear to Auscultation Cardiovascular: Positive: Normal Abdomen Description: Positive: Nontender Musculoskeletal: Positive: Normal Neurological: Positive: Normal Psychiatric: Positive: Normal AVPU Assessment: Alert - [place] Coma Scale Best Eye Response: 4 - Spontaneous Best Motor Response: 6 - Obeys Commands Best Verbal Response: 5 - Oriented Coma Scale Total: 15 Diagnostics - Vital Signs Vital Signs Temp Pulse Resp BP Pulse Ox 07/01/18 23:00 103 9 95 07/01/18 22:58 105 24 179/86 93 07/01/18 22:22 181/98 07/01/18 22:00 98 20 98 07/01/18 21:00 102 19 97 07/01/18 20:58 101 16 186/99 95 07/01/18 20:46 98.7 F 112 18 194/100 96 - Laboratory Lab Results: Lab Results 07/01/18 07/01/18 07/01/18 Range/Units 22:05 22:05 22:05 WBC 10.7 (3.5-10.8) 10^3/ul RBC 4.73 (4.00-5.40) 10^6/ul Hgb 14.0 (12.0-16.0) g/dl Hct 42 (35-47) % MCV 89 (80-97) fL MCH 30 (27-31) pg MCHC 33 (31-36) g/dl RDW 14 (10.5-15) % Plt Count 289 (150-450) 10^3/ul MPV 7.9 (7.4-10.4) fL Neut % (Auto) 72.3 % Lymph % (Auto) 19.8 % [place] % (Auto) 4.8 % Eos % (Auto) 2.4 % Baso % (Auto) 0.7 % Absolute Neuts (auto) 7.7 (1.5-7.7) 10^3/ul Absolute Lymphs (auto) 2.1 (1.0-4.8) 10^3/ul Absolute Monos (auto) 0.5 (0-0.8) 10^3/ul Absolute Eos (auto) 0.3 (0-0.6) 10^3/ul Absolute Basos (auto) 0.1 (0-0.2) 10^3/ul Absolute Nucleated RBC 0 10^3/ul Nucleated RBC % 0.1 APTT 38.3 H (26.0-36.3) seconds D-Dimer, Quantitative 549 H (Less Than 230) ng/mL Sodium 140 (135-145) mmol/L Potassium 4.2 (3.5-5.0) mmol/L Chloride 103 (101-111) mmol/L Carbon Dioxide 31 (22-32) mmol/L Anion Gap 6 (2-11) mmol/L BUN 13 (6-24) mg/dL Creatinine 0.83 (0.51-0.95) mg/dL Est GFR ( Amer) 81.8 (>60) Est GFR (Non-Af Amer) 67.6 (>60) BUN/Creatinine Ratio 15.7 (8-20) Glucose 114 H (70-100) mg/dL Lactic Acid (0.5-2.0) mmol/L Calcium 10.2 (8.6-10.3) mg/dL Magnesium 1.9 (1.9-2.7) mg/dL Total Bilirubin 0.70 (0.2-1.0) mg/dL AST 21 (13-39) U/L ALT 19 (7-52) U/L Alkaline Phosphatase 65 (34-104) U/L Troponin I 0.00 (<0.04) ng/mL B-Natriuretic Peptide (<=100) pg/mL Total Protein 7.2 (6.4-8.9) g/dL Albumin 4.2 (3.2-5.2) g/dL Globulin 3.0 (2-4) g/dL Albumin/Globulin Ratio 1.4 (1-3) TSH 4.11 (0.34-5.60) mcIU/mL Urine Color Urine Appearance Urine pH (5-9) Ur Specific [place] (1.010-1.030) Urine Protein (Negative) Urine Ketones (Negative) Urine Blood (Negative) Urine Nitrate (Negative) Urine Bilirubin (Negative) Urine Urobilinogen (Negative) Ur Leukocyte Esterase (Negative) Urine WBC (Auto) (Absent) Urine RBC (Auto) (Absent) Ur Squamous Epith Cells (Absent) Urine Bacteria (Absent) Urine Glucose (Negative) 07/01/18 07/01/18 07/01/18 Range/Units 22:05 22:05 22:25 WBC (3.5-10.8) 10^3/ul RBC (4.00-5.40) 10^6/ul Hgb (12.0-16.0) g/dl Hct (35-47) % MCV (80-97) fL MCH (27-31) pg MCHC (31-36) g/dl RDW (10.5-15) % Plt Count (150-450) 10^3/ul MPV (7.4-10.4) fL Neut % (Auto) % Lymph % (Auto) % [place] % (Auto) % Eos % (Auto) % Baso % (Auto) % Absolute Neuts (auto) (1.5-7.7) 10^3/ul Absolute Lymphs (auto) (1.0-4.8) 10^3/ul Absolute Monos (auto) (0-0.8) 10^3/ul Absolute Eos (auto) (0-0.6) 10^3/ul Absolute Basos (auto) (0-0.2) 10^3/ul Absolute Nucleated RBC 10^3/ul Nucleated RBC % APTT (26.0-36.3) seconds D-Dimer, Quantitative (Less Than 230) ng/mL Sodium (135-145) mmol/L Potassium (3.5-5.0) mmol/L Chloride (101-111) mmol/L Carbon Dioxide (22-32) mmol/L Anion Gap (2-11) mmol/L BUN (6-24) mg/dL Creatinine (0.51-0.95) mg/dL Est GFR ( Amer) (>60) Est GFR (Non-Af Amer) (>60) BUN/Creatinine Ratio (8-20) Glucose (70-100) mg/dL Lactic Acid 1.0 (0.5-2.0) mmol/L Calcium (8.6-10.3) mg/dL Magnesium (1.9-2.7) mg/dL Total Bilirubin (0.2-1.0) mg/dL AST (13-39) U/L ALT (7-52) U/L Alkaline Phosphatase (34-104) U/L Troponin I (<0.04) ng/mL B-Natriuretic Peptide 15 (<=100) pg/mL Total Protein (6.4-8.9) g/dL Albumin (3.2-5.2) g/dL Globulin (2-4) g/dL Albumin/Globulin Ratio (1-3) TSH (0.34-5.60) mcIU/mL Urine Color Yellow Urine Appearance Cloudy Urine pH 7.0 (5-9) Ur Specific [place] 1.005 L (1.010-1.030) Urine Protein Negative (Negative) Urine Ketones Negative (Negative) Urine Blood Negative (Negative) Urine Nitrate Negative (Negative) Urine Bilirubin Negative (Negative) Urine Urobilinogen Negative (Negative) Ur Leukocyte Esterase 3+ A (Negative) Urine WBC (Auto) 3+(>20/hpf) A (Absent) Urine RBC (Auto) 1+(3-5/hpf) A (Absent) Ur Squamous Epith Cells Present A (Absent) Urine Bacteria 1+ A (Absent) Urine Glucose Negative (Negative) Result Diagrams: 07/01/18 22:05 07/01/18 22:05 Lab Statement: Any lab studies that have been ordered have been reviewed, and results considered in the medical decision making process. Chest Pain Course/Dx - Course Course Of Treatment: Complains of sudden onset bilateral upper chest pain starting today at rest, with associated bilateral side and posterior neck pain. Patient has active CP described as new onset, constant, rated at 5/10, pressure. Patient denies shortness of breath except when she tries to lay flat. History of knee surgery April 07, was on Eliquis for 1 month. Currently taking antibiotics for C. difficile infection. Denies fever, cough, sore throat, N/V/D, abdominal pain, change in urine, change in BM, vaginal symptoms. Medical history is HDL, C. difficile, arthritis. From smoker quit 7 years ago. Occasional EtOH, denies recreational drug use. Took aspirin at 3: 30 PM. She also states she has white coat syndrome that causes elevated blood pressure. Physical exam:Lung sounds clear to auscultation bilaterally. Chest pain reproducible. Abdomen soft nontender. Patient positive for muscle tenderness along the sternocleidomastoid bilaterally and paraspinal muscles of C -spine. Patient mildly tachycardic. Blood pressure initially elevated, currently at 164 SBP. Vital signs otherwise unremarkable. D-dimer 549. Labs otherwise unremarkable. UA suggests possible UTI, however patient is asymptomatic. CTA chest negative for PE, dissection or aneurysm. EKG sinus rhythm. Chest x-ray unremarkable. Second troponin negative. Patient mildly tachycardic. Trending heart rate back to prior visits patient does appear to have occasional episodes of heart rate in the low 100s. Patient also states that she has been doing PT for her knee and so has also been exercising her upper body which she is not used to which has been causing some pain and soreness. Discussed patient with Dr. Siu who agrees patient may be discharged home. Follow up with primary care. - Diagnoses Provider Diagnoses: Atypical chest pain, Muscle spasm Discharge - Sign-Out/Discharge Documenting (check all that apply): Patient Departure Patient Received Moderate/Deep Sedation with Procedure: No - Discharge Plan Condition: Stable Disposition: HOME Prescriptions: Cyclobenzaprine TAB* [Flexeril 10 MG TAB*] 10 mg PO TID PRN 4 Days #12 tab PRN Reason: Pain Patient Education Materials: Chest Pain (ED), Muscle Spasm (ED) Referrals: Vikram Rueda MD [Primary Care Provider] - Additional Instructions: Follow-up with primary care. Return to the ED for any new or worsening symptoms. - Billing Disposition and Condition Condition: STABLE Disposition: Home
[2018-07-02] MEDS ORDERED: Diazepam TAB(*) 5 MG PO ONE (01:46)
[2018-07-02] MEDS ORDERED: Ibuprofen TAB* 600 MG PO ONE (01:46)
[2018-07-02 02:34] VITALS: BP 132/69
== END 2018-07-02 02:47 | disposition home or self-care (01) ==
LOC: ED 20:43
DX: R07.89 Other chest pain (principal); M62.838 Other muscle spasm; R06.02 Shortness of breath; A04.72 Enterocolitis due to Clostridium difficile, not specified as recurrent; M06.9 Rheumatoid arthritis, unspecified; F32.9 Major depressive disorder, single episode, unspecified; Z88.1 Allergy status to other antibiotic agents; Z88.0 Allergy status to penicillin; Z87.891 Personal history of nicotine dependence
CPT/HCPCS: 36415; 71046; 71275; 80053; 81003; 81015; 83605; 83735; 83880; 84443; 84484; 85025; 85379; 85730; 87086; 93005; 99284; A9270-GY; Q9967